=== PATIENT | female | born 1970 | race Caucasian/White ===

== ENCOUNTER 2016-08-04 20:22 | Emergency (ER) ==
[2016-08-04 20:35] VITALS: BP 132/92; TEMP 100.3; BMI 29.2
[2016-08-04] MEDS ORDERED: TORADOL IM STA (20:48)
[2016-08-04] MEDS ORDERED: AUGMENTIN 500-125 MG TAB PO STA (20:48)
--- NOTE | 2016-08-04 20:51 | ED.PDOC ---
General ED Provider: Dr. ALMA SHRESTHA Chief Complaint: Tooth Problem Stated Complaint: Been hurting in the left upper teeth, swollen gums, seen Dr Solorzano Time Seen by Physician: 20:49 Mode of Arrival: Walk-In Information Source: Patient Primary Care Provider: AMY OHARA Nursing and Triage Documentation Reviewed and Agree: Yes EENT Complaint Exam - Dental/Oral Complaint/Exam Mechanism of Injury: No known trauma Symptoms Are: Still present Timing: Constant Initial Severity: Moderate Current Severity: Moderate Character: Reports: Aching, Throbbing Aggravating: Reports: Cold, Chewing, Exertion Alleviating: Reports: Cold Associated Signs and Symptoms: Reports: Swelling. Denies: Discharge, Fever, Foul odor, Foul taste in mouth Related History: Reports: Similar episode Cardiac Risk Factors: Reports: None Dental/Oral Surgical History: Reports: None Tooth Findings: Present: Percussion tenderness, Abcess, Cellulitis Cervical Lymphadenopathy Present: No Facial Swelling Present: No Bleeding Present: No Septal Hematoma: No Foreign Body Present: No Dysphagia Present: No Drooling Present: No Asymmetrical Tonsillar Swelling Present: No Teeth Picture: 1 - fractured teeth, swollen gums Differential Diagnoses: Dental Caries, Gingivitis Review of Systems - Review Of Systems Constitutional: Reports: No symptoms Eyes: Reports: No symptoms Ears, Nose, Mouth, Throat: Reports: Throat pain Respiratory: Reports: No symptoms Cardiac: Reports: No symptoms GI: Reports: No symptoms : Reports: No symptoms Musculoskeletal: Reports: No symptoms Skin: Reports: No symptoms Neurological: Reports: No symptoms Endocrine: Reports: No symptoms Hematologic/Lymphatic: Reports: No symptoms All Other Systems: Reviewed and Negative Past Medical History - Past Medical History Previously Healthy: No Endocrine: Reports: DM 1, Hypothyroid Cardiovascular: Reports: None Respiratory: Reports: None Hematological: Reports: None Gastrointestinal: Reports: None Genitourinary: Reports: None Neuro/Psych: Reports: Migraine, Bipolar Disorder ((see meds)) Musculoskeletal: Reports: None Cancer: Reports: Unknown Last Menstrual Period: N/A Other Pertinent Past Medical History: KNEE,GALLBLADDER,BACK,NECK,HANDS - Surgical History General Surgical History: Reports: Cholecystectomy, Orthopedic (KNEE,BACK,NECK, HANDS) - Family History Family History: Reports: Unknown - Social History Smoking Status: Current every day smoker Hx Substance Use: No Alcohol Screening: None - Immunizations Tetanus Shot up to Date: Yes Physical Exam - Physical Exam Appearance: Ill-appearing, Obese Pain Distress: Moderate Eyes: HU, EOMI, Conjunctiva clear ENT: Ears normal, Nose normal, Oropharynx normal Respiratory: Airway patent, Breath sounds clear, Breath sounds equal, Respirations nonlabored Cardiovascular: RRR, Pulses normal, No rub, No murmur GI/: Soft, Nontender, No masses, Bowel sounds normal, No Organomegaly Musculoskeletal: Normal strength, ROM intact, No edema, No calf tenderness Skin: Warm, Dry, Normal color Neurological: Sensation intact, Motor intact, Reflexes intact, Cranial nerves intact, Alert, Oriented Psychiatric: Affect appropriate, Mood appropriate Critical Care Note - Critical Care Note Total Time (mins): 0 Course - Course Orders, Labs, Meds: Orders Category Date Time Status Amoxicillin/Potassium Clav [Augmentin 500-125 mg Tab] MEDS 08/04/16 20:48 Stat 1 tab PO ONCE STA Ketorolac Tromethamine [Toradol] MEDS 08/04/16 20:48 Stat 60 mg IM ONCE STA Vital Signs: Temp Pulse Resp BP Pulse Ox 08/04/16 20:23 100.3 F H 95 H 20 132/92 H 97 Departure - Departure Time of Disposition: 21:20 Disposition: HOME SELF-CARE Discharge Problem: Toothache Instructions: Gingivitis (ED) Condition: Stable Pt referred to PMD for follow-up: Yes Additional Instructions: Keep f/u with Dr Webb dental hygiene discussed Prescriptions: Amoxicillin/Potassium Clav [Augmentin 500-125 mg Tab] 1 tab PO Q12HR #20 tablet Tramadol HCl 50 mg PO BID #14 tablet Allergies/Adverse Reactions: Allergies codeine Adverse Reaction (Verified 07/29/16 19:42) fluoxetine HCl [From Prozac] Adverse Reaction (Verified 07/29/16 19:42) ibuprofen [From Motrin] Adverse Reaction (Verified 08/04/16 20:29) Nausea prednisone Adverse Reaction (Verified 07/29/16 19:42) Home Medications: Ambulatory Orders Trazodone HCl 300 mg PO BEDTIME 02/01/13 Levothyroxine Sodium [Synthroid] 137 mcg PO BEDTIME 12/04/14 Sertraline HCl [Zoloft] 200 mg PO BEDTIME 12/04/14 Amoxicillin/Potassium Clav [Augmentin 500-125 mg Tab] 1 tab PO Q12HR #20 tablet 08/04/16 Tramadol HCl 50 mg PO BID #14 tablet 08/04/16 Disposition Discussed With: Patient, Family
== END 2016-08-04 21:25 | disposition home or self-care (01) ==
LOC: ED 20:22
DX: K08.89 Other specified disorders of teeth and supporting structures (principal); K05.10 Chronic gingivitis, plaque induced; F17.210 Nicotine dependence, cigarettes, uncomplicated; R11.2 Nausea with vomiting, unspecified; T39.8X5A Adverse effect of other nonopioid analgesics and antipyretics, not elsewhere classified, initial encounter
CPT/HCPCS: 96372; 99282

== ENCOUNTER 2016-08-04 22:25 | Emergency (ER) ==
[2016-08-04 22:25] VITALS: BMI 30.2
[2016-08-04 22:35] VITALS: BP 129/86; TEMP 98.8
[2016-08-04] MEDS ORDERED: ZOFRAN 4 MG/2 ML IM STA (22:47)
[2016-08-04] MEDS ORDERED: BENADRYL IM STA (22:47)
--- NOTE | 2016-08-04 22:50 | ED.PDOC ---
General ED Provider: Dr. ALMA SHRESTHA Chief Complaint: Nausea/Vomiting Stated Complaint: Patient was here before for the dental pain, when giving torodol for that pain she did not remeber that she was allergiac, so she got the shot and went home started feeling nauseous, came for the f/u Time Seen by Physician: 22:48 Mode of Arrival: Walk-In Information Source: Patient Nursing and Triage Documentation Reviewed and Agree: Yes GI Complaint Exam - Vomiting/Diarrhea Complaint/Exam Symptoms Are: Resolved Episodes of Vomiting over last 24 Hours: 2 Initial Severity: Moderate Current Severity: None Character of Vomiting: Reports: Non-bilious Aggravating: Reports: None Alleviating: Reports: None Associated Signs and Symptoms: Denies: Dizziness, Light-headedness, Melena, Hematemesis, Fever, Abdominal pain, Cramping Non-GI Risk Factors: Reports: None Surgical Obstruction Risk Factors: Reports: None Related Surgical History: Reports: None Abdominal Findings: Present: None Differential Diagnoses: Other (alergic reaction) Review of Systems - Review Of Systems Constitutional: Reports: No symptoms Eyes: Reports: No symptoms Ears, Nose, Mouth, Throat: Reports: No symptoms Respiratory: Reports: No symptoms Cardiac: Reports: No symptoms GI: Reports: Nausea, Vomiting : Reports: No symptoms Musculoskeletal: Reports: No symptoms Skin: Reports: No symptoms Neurological: Reports: No symptoms Endocrine: Reports: No symptoms Hematologic/Lymphatic: Reports: No symptoms All Other Systems: Reviewed and Negative Past Medical History - Past Medical History Previously Healthy: No Endocrine: Reports: DM 1, Hypothyroid Cardiovascular: Reports: None Respiratory: Reports: None Hematological: Reports: None Gastrointestinal: Reports: None Genitourinary: Reports: None Neuro/Psych: Reports: Migraine, Bipolar Disorder ((see meds)) Musculoskeletal: Reports: None Cancer: Reports: Unknown Last Menstrual Period: HYSTERECTOMY Other Pertinent Past Medical History: KNEE,GALLBLADDER,BACK,NECK,HANDS - Surgical History General Surgical History: Reports: Cholecystectomy, Orthopedic (KNEE,BACK,NECK, HANDS) - Family History Family History: Reports: Unknown - Social History Smoking Status: Former smoker Hx Substance Use: No Alcohol Screening: None Physical Exam - Physical Exam Appearance: Well-appearing, No pain distress, Well-nourished Eyes: HU, EOMI, Conjunctiva clear ENT: Ears normal, Nose normal, Oropharynx normal Respiratory: Airway patent, Breath sounds clear, Breath sounds equal, Respirations nonlabored Cardiovascular: RRR, Pulses normal, No rub, No murmur GI/: Soft, Nontender, No masses, Bowel sounds normal, No Organomegaly Musculoskeletal: Normal strength, ROM intact, No edema, No calf tenderness Skin: Warm, Dry, Normal color Neurological: Sensation intact, Motor intact, Reflexes intact, Cranial nerves intact, Alert, Oriented Psychiatric: Affect appropriate, Mood appropriate Critical Care Note - Critical Care Note Total Time (mins): 0 Course - Course Orders, Labs, Meds: Orders Category Date Time Status Diphenhydramine Inj [Benadryl] MEDS 08/04/16 22:47 Stat 25 mg IM ONCE STA Ondansetron HCl/Pf [Zofran 4 mg/2 ml] MEDS 08/04/16 22:47 Stat 4 mg IM ONCE STA Vital Signs: Temp Pulse Resp BP Pulse Ox 08/04/16 22:25 98.8 F 85 20 129/86 97 Departure - Departure Time of Disposition: 22:53 Disposition: HOME SELF-CARE Discharge Problem: Allergic reaction caused by a drug Qualifiers: Encounter type: initial encounter Qualifier Code: (T78.40XA) Allergy, unspecified, initial encounter Instructions: General Allergic Reaction (ED) Condition: Stable Pt referred to PMD for follow-up: Yes Additional Instructions: ALLERGIC TO TORODOL IS UPDATED. Increase hydration Zofran 4 mg po tid x 10 Benadryl 25 po tid Needs f/u with Pmd if not better Prescriptions: Diphenhydramine HCl [Benadryl] 25 mg PO Q6H #14 capsule Ondansetron HCl [Zofran] 4 mg PO TID #14 tablet Allergies/Adverse Reactions: Allergies ketorolac [From Toradol] Adverse Reaction (Mild, Verified 08/04/16 22:38) Vomiting codeine Adverse Reaction (Verified 08/04/16 22:38) fluoxetine HCl [From Prozac] Adverse Reaction (Verified 08/04/16 22:38) ibuprofen [From Motrin] Adverse Reaction (Verified 08/04/16 22:38) Nausea prednisone Adverse Reaction (Verified 08/04/16 22:38) Home Medications: Ambulatory Orders Trazodone HCl 300 mg PO BEDTIME 02/01/13 Levothyroxine Sodium [Synthroid] 137 mcg PO BEDTIME 12/04/14 Sertraline HCl [Zoloft] 200 mg PO BEDTIME 12/04/14 Amoxicillin/Potassium Clav [Augmentin 500-125 mg Tab] 1 tab PO Q12HR #20 tablet 08/04/16 Diphenhydramine HCl [Benadryl] 25 mg PO Q6H #14 capsule 08/04/16 Ondansetron HCl [Zofran] 4 mg PO TID #14 tablet 08/04/16 Tramadol HCl 50 mg PO BID #14 tablet 08/04/16 Disposition Discussed With: Patient, Family
== END 2016-08-04 23:15 | disposition home or self-care (01) ==
LOC: ED 22:25
DX: R11.2 Nausea with vomiting, unspecified (principal); T39.8X5A Adverse effect of other nonopioid analgesics and antipyretics, not elsewhere classified, initial encounter

== ENCOUNTER 2016-11-05 11:08 | Outpatient (CLI) ==
[2013-02-01 21:24] VITALS: TEMP 96.6
[2016-11-05 11:39] LABS: BASOPHILS # (AUTO) 0.1 K/uL (0-0.2); BASOPHILS % (AUTO) 0.8 % (0.0-3.0); EOSINOPHILS # (AUTO) 0.4 K/ul (0.0-0.7); EOSINOPHILS % (AUTO) 4.7 % (0.0-7.0); HEMATOCRIT 35.8 % (37.0-47.0); HEMOGLOBIN 12.4 g/dl (12.0-16.0); IMMATURE GRANULOCYTE % (AUTO) 0.6 % (0.0-5.0); LYMPHOCYTES # (AUTO) 3.5 K/uL (0.60-3.4); LYMPHOCYTES % (AUTO) 38.9 (10.0-50.0); MEAN CORPUSCULAR HGB CONC 34.6 (31.8-35.4); MEAN CORPUSCULAR VOLUME 80.8 fl (81.0-99.0); MONOCYTES # (AUTO) 0.4 K/uL (0.4-2.0); MONOCYTES % (AUTO) 4.2 (0-10); NEUTROPHILS # (AUTO) 4.5 K/ul (2.0-6.9); NEUTROPHILS % (AUTO) 50.8; PLATELET COUNT 244 10^3/uL (140-440); RED BLOOD COUNT 4.43 10^6/ul (4.20-5.40); WHITE BLOOD COUNT 8.87 K/ul (4.6-10.2)
[2016-11-05 12:04] LABS: ALBUMIN 3.4 g/dL (3.4-5.0); ALBUMIN/GLOBULIN RATIO 0.74; BILIRUBIN,TOTAL 0.23 mg/dL (0.00-1.20); BUN/CREATININE RATIO 14.81; CHOL/HDL RATIO 6.8 (4.5-5.5); CREATININE 0.81 mg/dL (0.60-1.30)
== END 2016-11-05 11:09 | disposition home or self-care (01) ==
LOC: LAB 11:08
PROVIDERS: ATTEND Physician Assistant
DX: E03.9 Hypothyroidism, unspecified (principal); E11.9 Type 2 diabetes mellitus without complications; F51.01 Primary insomnia
CPT/HCPCS: 36415; 80053; 80061; 82043; 83036; 85025

== ENCOUNTER 2016-11-23 15:06 | Outpatient (CLI) ==
[2013-02-01 21:24] VITALS: TEMP 96.6
== END 2016-11-23 15:07 ==
LOC: AMBL 15:06
PROVIDERS: ATTEND Internal Medicine
DX: R53.1 Weakness (principal); R11.2 Nausea with vomiting, unspecified; R51 Headache; R42 Dizziness and giddiness; Z86.73 Personal history of transient ischemic attack (TIA), and cerebral infarction without residual deficits

== ENCOUNTER 2017-02-17 09:08 | Outpatient (CLI) ==
[2013-02-01 21:24] VITALS: TEMP 96.6
[2017-02-17 09:59] LABS: BASOPHILS # (AUTO) 0.1 K/uL (0-0.2); BASOPHILS % (AUTO) 0.7 % (0.0-3.0); EOSINOPHILS # (AUTO) 0.4 K/ul (0.0-0.7); EOSINOPHILS % (AUTO) 4.1 % (0.0-7.0); HEMATOCRIT 40.2 % (37.0-47.0); HEMOGLOBIN 13.9 g/dl (12.0-16.0); IMMATURE GRANULOCYTE % (AUTO) 0.4 % (0.0-5.0); LYMPHOCYTES # (AUTO) 3.4 K/uL (0.60-3.4); LYMPHOCYTES % (AUTO) 32.1 (10.0-50.0); MEAN CORPUSCULAR HGB CONC 34.6 (31.8-35.4); MONOCYTES # (AUTO) 0.5 K/uL (0.4-2.0); MONOCYTES % (AUTO) 4.7 (0-10); NEUTROPHILS # (AUTO) 6.1 K/ul (2.0-6.9); PLATELET COUNT 253 10^3/uL (140-440); RED BLOOD COUNT 4.96 10^6/ul (4.20-5.40); WHITE BLOOD COUNT 10.47 K/ul (4.6-10.2)
[2017-02-17 10:36] LABS: ALBUMIN 3.7 g/dL (3.4-5.0); ALBUMIN/GLOBULIN RATIO 0.76; ANION GAP 16.3; BILIRUBIN,TOTAL 0.39 mg/dL (0.00-1.20); BUN/CREATININE RATIO 13.86; CALCIUM 9.2 mg/dL (8.2-10.2); CHOL/HDL RATIO 6.6 (4.5-5.5); CREATININE 1.01 mg/dL (0.60-1.30); POTASSIUM 4.3 mmol/L (3.5-5.10); TOTAL PROTEIN 8.6 g/dL (6.4-8.2)
== END 2017-02-17 09:09 | disposition home or self-care (01) ==
LOC: LAB 09:08
PROVIDERS: ATTEND Physician Assistant
DX: E03.9 Hypothyroidism, unspecified (principal); E11.9 Type 2 diabetes mellitus without complications; I10 Essential (primary) hypertension
CPT/HCPCS: 36415; 80053; 80061; 83036; 84443; 85025

== ENCOUNTER 2017-02-18 08:57 | Outpatient (CLI) ==
[2013-02-01 21:24] VITALS: TEMP 96.6
== END 2017-02-18 08:58 ==
LOC: AMBL 08:57
PROVIDERS: ATTEND Internal Medicine
DX: R53.1 Weakness (principal); R47.81 Slurred speech; E11.9 Type 2 diabetes mellitus without complications; I10 Essential (primary) hypertension; Z86.73 Personal history of transient ischemic attack (TIA), and cerebral infarction without residual deficits; R13.10 Dysphagia, unspecified; R26.89 Other abnormalities of gait and mobility; R10.9 Unspecified abdominal pain

== ENCOUNTER 2017-04-22 06:55 | Outpatient (CLI) ==
[2013-02-01 21:24] VITALS: TEMP 96.6
[2017-04-22 18:45] VITALS: BMI 30.3
== END 2017-04-22 06:56 | disposition critical access hospital (66) ==
LOC: AMBL 06:55
PROVIDERS: ATTEND Internal Medicine Geriatric Medicine
DX: R40.20 Unspecified coma (principal)

== ENCOUNTER 2017-04-22 07:01 | Inpatient (IN) ==
--- NOTE | 2017-04-22 07:34 | ED.PDOC ---
General ED Provider: Dr. DALILA JAMES Chief Complaint: Overdose Stated Complaint: Found by family member unresponsive on floor. Opens eyes but doesn't respond to questions or commands. Empty bottle of Tylenol found, with pills spilled around her. Last time seen was evening before (10-12 hours before) . No note written. No suicidal speech reported. Time Seen by Physician: 07:49 Mode of Arrival: Ambulance Information Source: EMT Exam Limitations: No limitations, Altered mental status (Patient appears alert. Doesn't answer most questions (but nodded yes when I pressed on her abdomen and she jumped) and doesn't follow commands (but when I tried to sit her up she grabbed hand rails and asisted herself up).) Primary Care Provider: AMY SCHNEIDER Nursing and Triage Documentation Reviewed and Agree: Yes Psychological Complaint Exam - Overdose/Toxic Exposure Complaint/Exam Ingestion Occurred: in last 12 hours Witnessed: No Ingestion: Medication (Tylenol ) Character: Reports: Oral Aggravating: Reports: None Treatment Prior To Arrival: None Associated Signs And Symptoms: Reports: Intentional ingestion Completed Suicide Risk Factors: Gag Reflex Present: Yes Inability To Swallow Present: No Drooling Present: No Miosis Present: No Mydriasis Present: No Nystagmus Present: No Gait: Present: Unable Patient Uncooperative For Exam: No Mood: Present: Depressed (flat affect, doesn't respond to questions, doesn't speak) Appearance: Present: Clean Differential Diagnoses: Acute Psychosis, Anxiety, Aspirin Overdose, Tylenol Overdose, Depression, Suicide Attempt, Suicide Gesture Quality Indicator For Non-Traumatic Chest Pain/Syncope: EKG Performed Review of Systems - Review Of Systems Constitutional: Reports: No symptoms (Patient doesn't speak, doesn't respond to most questions) All Other Systems: Other (Patient doesn't speak, doesn't respond to most questions) Past Medical History - Past Medical History Previously Healthy: No Endocrine: Reports: DM 2 (insulin-requiring tpe DM), Hypothyroid Cardiovascular: Reports: None Respiratory: Reports: None Hematological: Reports: None Gastrointestinal: Reports: None Genitourinary: Reports: None Neuro/Psych: Reports: CVA (later in visit, patient stated via written note that she has had 3 CVAs), Migraine, Depression, Bipolar Disorder ((see meds)) Musculoskeletal: Reports: None Cancer: Reports: Unknown Last Menstrual Period: hysterectomy Other Pertinent Past Medical History: KNEE,GALLBLADDER,BACK,NECK,HANDS - Surgical History General Surgical History: Reports: Cholecystectomy, Orthopedic (KNEE,BACK,NECK, HANDS) - Family History Family History: Reports: Unknown - Social History Smoking Status: Former smoker Hx Substance Use: No Alcohol Screening: None Lives: With family - Immunizations Tetanus Shot up to Date: Yes Physical Exam - Physical Exam Appearance: Well-appearing, No pain distress, Well-nourished, Obese Ill-appearing: None Pain Distress: None Eyes: HU (Won't track my finger but follows me with her eyes), EOMI, Conjunctiva clear ENT: Ears normal, Nose normal, Oropharynx normal Neck: Supple Respiratory: Airway patent, Breath sounds clear, Breath sounds equal, Respirations nonlabored Cardiovascular: RRR, Pulses normal, No rub, No murmur GI/: Soft, No masses, Bowel sounds normal, No Organomegaly, Tender (mild generalized tenderness on initial exam but no apparent tenderness on repeat exam ) Musculoskeletal: ROM intact, No edema, No calf tenderness, Limited strength ( difficulty walking. patient states (via written notes) that she is weaker than usual) Skin: Warm, Dry, Normal color Neurological: Sensation intact, Motor intact, Reflexes intact, Cranial nerves intact (limited to those I can test without her cooperation. No gross deficits.) , Alert (alert but doesn't speak or indicate she understands, except when I pushed on her abdomen, she flinched and when I asked it it hurt, she nodded.), Alert to verbal, Alert to pain Psychiatric: Depressed (affect appears flat) Interpretation - Radiology Interpretation Radiology Interpretation By: Radiologist Radiology Results: Negative Exam Interpreted: CT Scan Xray Comments: head: unremarkable - EKG Interpretation Time of EKG #1: 07:37 Rate: Normal Rhythm: Sinus Ectopy: None [place]: [place] ST Segment: Normal Interpretation: nonspecific T wave abnormality Re-Evaluation - Re-Evaluation Time of Re-Evaluation: 09:25 Status: Improved Vital Signs Stable: Yes Pain Level: 0 Appearance: NAD Lungs: Clear Skin: Warm and Dry Neuro: Other (Patient gives no useful information beyond not homocidal/suicidal & denies taking any pills. Asking for transfer to [facility] where her primary doctor admits. She does appear to be oriented x3. Does say "yes" and "no" occasionally and appropriately.) CV: RRR Additional Comments: Since arrival of [id number], patient is now willing/ able to write notes Physician Notification - Case Discussed Physician Notified: Dr. Schneider Time of Notification: 10:04 ( states patient is has not any benzodiazepenes rx'd by him.) Physician Notified: Dr. Velazco (hospitalist at [facility]) Time of Notification: 10:32 (Strongly suspects conversion reaction and [facility] has no psych. recommends transfer to [facility]) Endorsed To/Discussed With: [facility] contacted, advised patient should go to state facility Time of Discussion: 14:10 Admit/Transition Orders Entered by ED Provider: Yes Reviewed With: Dr. Lang who agreed to admit patient Admit To: Inpatient Critical Care Note - Critical Care Note Total Time (mins): 0 Course - Course Hematology/Chemistry: 04/22/17 07:50 04/22/17 07:50 Orders, Labs, Meds: Lab Review 04/22/17 04/22/17 04/22/17 07:50 07:50 08:10 WBC 7.86 RBC 4.32 Hgb 12.3 Hct 35.4 L MCV 81.9 MCH 28.5 MCHC 34.7 RDW Coeff of Luanne 13.2 Plt Count 196 Immature Gran % (Auto) 0.4 Neut % (Auto) 56.1 Lymph % (Auto) 34.7 [place] % (Auto) 4.8 Eos % (Auto) 3.2 Baso % (Auto) 0.8 Immature Gran # (Auto) 0.0 Neut # 4.4 Lymph # 2.7 [place]ardo # 0.4 Eos # 0.3 Baso # 0.1 Sodium 137 Potassium 3.3 L Chloride 102 Carbon Dioxide 25 Anion Gap 13.3 BUN 9 Creatinine 0.85 Estimated GFR (MDRD) 71.00 BUN/Creatinine Ratio 10.58 Glucose 242 H Calcium 8.9 Total Bilirubin 0.24 AST 9 L ALT 11 L Alkaline Phosphatase 59 Total Protein 7.6 Albumin 3.4 Globulin 4.2 Albumin/Globulin Ratio 0.81 Urine Color Urine Clarity Urine pH Ur Specific [place] Urine Protein Urine Glucose (UA) Urine Ketones Urine Blood Urine Nitrite Urine Bilirubin Urine Urobilinogen Ur Leukocyte Esterase Urine Microscopic RBC Urine Microscopic WBC Ur Squamous Epith Cells Ur Renal Epithelial Cell Amorphous Sediment Urine Bacteria Urine Mucus Salicylate Level mg/dL < 5.0 Urine Opiates Screen Negative Ur Oxycodone Screen Negative Urine Methadone Screen Negative Ur Propoxyphene Screen Negative Acetaminophen < 3 L Ur Barbiturates Screen Negative U Tricyclic Antidepress Negative Ur Phencyclidine Scrn Negative Ur Amphetamine Screen Negative U Methamphetamines Scrn Negative U Benzodiazepines Scrn Positive Urine Cocaine Screen Negative U Cannabinoids Screen Negative Plasma/Serum Alcohol < 10.0 04/22/17 08:10 WBC RBC Hgb Hct MCV MCH MCHC RDW Coeff of Luanne Plt Count Immature Gran % (Auto) Neut % (Auto) Lymph % (Auto) [place] % (Auto) Eos % (Auto) Baso % (Auto) Immature Gran # (Auto) Neut # Lymph # [place] # Eos # Baso # Sodium Potassium Chloride Carbon Dioxide Anion Gap BUN Creatinine Estimated GFR (MDRD) BUN/Creatinine Ratio Glucose Calcium Total Bilirubin AST ALT Alkaline Phosphatase Total Protein Albumin Globulin Albumin/Globulin Ratio Urine Color Yellow Urine Clarity Clear Urine pH 6.5 Ur Specific [place] 1.025 Urine Protein 1+ Urine Glucose (UA) Trace Urine Ketones Negative Urine Blood Negative Urine Nitrite Negative Urine Bilirubin Negative Urine Urobilinogen 0.2 Ur Leukocyte Esterase Negative Urine Microscopic RBC 0-2 Urine Microscopic WBC 0-2 Ur Squamous Epith Cells 0-2 Ur Renal Epithelial Cell 0-2 Amorphous Sediment Trace Urine Bacteria Trace Urine Mucus 1+ Salicylate Level mg/dL Urine Opiates Screen Ur Oxycodone Screen Urine Methadone Screen Ur Propoxyphene Screen Acetaminophen Ur Barbiturates Screen U Tricyclic Antidepress Ur Phencyclidine Scrn Ur Amphetamine Screen U Methamphetamines Scrn U Benzodiazepines Scrn Urine Cocaine Screen U Cannabinoids Screen Plasma/Serum Alcohol Orders Category Date Time Status EKG-(ED ONLY) Stat CARDIO 04/22/17 07:33 Completed Mental Health Consult [ED MENTAL HEALTH CONSULT] .ONCE EMERGENCY 04/22/17 14: 26 Active ACETAMINOPHEN Stat LAB 04/22/17 07:50 Completed BLOOD ALCOHOL Stat LAB 04/22/17 07:50 Completed CBC W/ AUTO DIFF Stat LAB 04/22/17 07:50 Completed COMPREHENSIVE METABOLIC PANEL Stat LAB 04/22/17 07:50 Completed DRUG SCREEN, URINE, RAPID Stat LAB 04/22/17 08:10 Completed SALICYLATE Stat LAB 04/22/17 07:50 Completed URINALYSIS C & S IF INDICATED Stat LAB 04/22/17 08:[address] HEAD W/O CONTRAST Stat RADS 04/22/17 09:07 Completed Vital Signs: Temp Pulse Resp BP Pulse Ox 04/22/17 07:02 96.9 F L 68 16 126/88 99 Departure - Departure Time of Disposition: 17:29 Disposition: ADMITTED INPATIENT Discharge Problem: Dysphasia Condition: Stable Pt referred to PMD for follow-up: Yes (after discharge from hospital) Allergies/Adverse Reactions: Allergies ketorolac [From Toradol] Adverse Reaction (Mild, Verified 04/22/17 07:15) Vomiting codeine Adverse Reaction (Verified 04/22/17 07:15) fluoxetine HCl [From Prozac] Adverse Reaction (Verified 04/22/17 07:15) ibuprofen [From Motrin] Adverse Reaction (Verified 04/22/17 07:15) Nausea prednisone Adverse Reaction (Verified 04/22/17 07:15) Home Medications: Ambulatory Orders Trazodone HCl 300 mg PO BEDTIME 02/01/13 Levothyroxine Sodium [Synthroid] 137 mcg PO BEDTIME 12/04/14 Sertraline HCl [Zoloft] 200 mg PO BEDTIME 12/04/14 Diphenhydramine HCl [Benadryl] 25 mg PO Q6H #14 capsule 08/04/16 Disposition Discussed With: Patient
[2017-04-22 07:55] LABS: BASOPHILS # (AUTO) 0.1 K/uL (0-0.2); BASOPHILS % (AUTO) 0.8 % (0.0-3.0); EOSINOPHILS # (AUTO) 0.3 K/ul (0.0-0.7); EOSINOPHILS % (AUTO) 3.2 % (0.0-7.0); HEMATOCRIT 35.4 % (37.0-47.0); HEMOGLOBIN 12.3 g/dl (12.0-16.0); IMMATURE GRANULOCYTE % (AUTO) 0.4 % (0.0-5.0); LYMPHOCYTES # (AUTO) 2.7 K/uL (0.60-3.4); LYMPHOCYTES % (AUTO) 34.7 (10.0-50.0); MEAN CORPUSCULAR HEMOGLOBIN 28.5 pg (27.0-31.0); MEAN CORPUSCULAR HGB CONC 34.7 (31.8-35.4); MEAN CORPUSCULAR VOLUME 81.9 fl (81.0-99.0); MONOCYTES # (AUTO) 0.4 K/uL (0.4-2.0); MONOCYTES % (AUTO) 4.8 (0-10); NEUTROPHILS # (AUTO) 4.4 K/ul (2.0-6.9); NEUTROPHILS % (AUTO) 56.1; PLATELET COUNT 196 10^3/uL (140-440); RED BLOOD COUNT 4.32 10^6/ul (4.20-5.40); WHITE BLOOD COUNT 7.86 K/ul (4.6-10.2)
[2017-04-22 08:16] LABS: ACETAMINOPHEN < 3 ug/ml (10-30); ALANINE AMINOTRANSFERASE 11 U/L (12-78); ALBUMIN 3.4 g/dL (3.4-5.0); ALBUMIN/GLOBULIN RATIO 0.81; ALKALINE PHOSPHATASE 59 U/L (42-98); ANION GAP 13.3; ASPARTATE AMINO TRANSFERASE 9 U/L (15-37); BILIRUBIN,TOTAL 0.24 mg/dL (0.00-1.20); BLOOD UREA NITROGEN 9 mg/dL (7-18); BUN/CREATININE RATIO 10.58; CALCIUM 8.9 mg/dL (8.2-10.2); CARBON DIOXIDE 25 mmol/L (21-32); CHLORIDE 102 mmol/L (98-107); CREATININE 0.85 mg/dL (0.60-1.30); GLUCOSE 242 mg/dL (70-110); POTASSIUM 3.3 mmol/L (3.5-5.10); SALICYLATE < 5.0 mg/dL (2.8-20.0); SODIUM 137 mmol/L (136-145); TOTAL PROTEIN 7.6 g/dL (6.4-8.2)
[2017-04-22 08:58] LABS: BILIRUBIN,URINE Negative (NEGATIVE); KETONES,URINE Negative (NEGATIVE); LEUKOCYTE ESTERASE ,URINE Negative (NEGATIVE); NITRITE,URINE Negative (NEGATIVE); PH,URINE 6.5 (5-9); PROTEIN,URINE 1+ (NEGATIVE); URINE, BLOOD Negative (NEGATIVE)
[2017-04-22 09:04] LABS: ADD URINE MICROSCOPIC YES; COCAIN SCREEN,URINE NEGATIVE (NEGATIVE)
[2017-04-22 09:07] LABS: BACTERIA,URINE TRACE (NOT PRESENT)
--- NOTE | 2017-04-22 09:46 | CT ---
EXAM: CT of the head without contrast History: Altered mental status. Comparison: Head CT 07/27/2016 Technique: Multiplanar CT images through the head were obtained without the administration of IV con trast Findings: The visualized paranasal sinuses and mastoid air cells are clear in general. No acute manuel varial abnormalities. Intracranially the ventricular and cisternal spaces are normal in size, shape and configuration for a patient of this age. No dominant mass or midline shift. No hydrocephalous. No acute intracranial hemorrhage or abnormal extraaxial fluid collections. Impression: No acute intracranial process. No change compared to the prior study.
[2017-04-22 18:45] VITALS: BMI 30.3
[2017-04-22] MEDS: DEXTROSE 5%-NS IV SOLUTION 1,000 ML IV SCH (20:49)
[2017-04-22] MEDS: TYLENOL PO PRN (21:54)
[2017-04-23] MEDS: TYLENOL PO PRN ×3 (08:28→23:26)
--- NOTE | 2017-04-23 11:45 | RS.PTINEVL ---
Subjective - Patient information Date of Evaluation: 04/23/17 Date of Arrival on Unit: 04/22/17 Admitted From:: Home Usual Living Arrangement: With Others Living Arrangement Comments: Tamara and mother in law Home Environment: House, Stairs (few), No rail Medical History: Diabetes Medical History Comments:: depression LATEX ALLERGY?: No Surgical History: Cholecystectomy, Hysterectomy Surgical History Comments:: knee surgery, pt reports has had back surgery and is on disability from her back problems. Subjective Information/ Patient Comments:: pt admitted with possible overdose of tylenol. pt found unresponsive at her home. pt has been aphasic since incident and admit to hospital. pt has said 1-2 words total since admit. pt writes answers to questions. - Level of function Prior to this admission, the patient could do the following:: Independent Selfcare, Independent ADL's, Independent Ambulation Current Equipment Used at Home: Glucometer Pain Assessement - Location Head Description: Aching Intensity: 8 Pain Behavior: Facial Grimacing Pain Aggravating Factors: Exercise/Activity, Standing, Walking Pain Alleviating Factors: Medication Lower Back Description: Radiating, Aching Intensity: 10 Radiation Location: RLE Pain Behavior: Facial Grimacing Pain Aggravating Factors: Standing, Walking Pain Alleviating Factors: Medication Effects of Pain: limits amb Interventions - Objective Patient Orientation: Person, Place, Time, Situation Current Interventions: IV's, Telemetry (pt has had multiple iv sites, currently IV in R wrist) Range of Motion - ROM Right Upper Extremity AROM: WFL's Left Upper Extremity AROM: WFL's Right Lower Extremity AROM: WFL's Left Lower Extremity AROM: WFL's Muscle Strength - Muscle Strength Right Upper Extremity Strength: Mild Weakness Left Upper Extremity Strength: Mild Weakness Right Lower Extremity Strength: Mild Weakness Left Lower Extremity Strength: Mild Weakness (BUE 4/5, BLE hip flex 4/5, knee flex/ext 4+/5, ankle DF/PF 4+/5) Sensation - Sensation Right Upper Extremity Sensation: Intact/Normal Left Upper Extremity Sensation: Intact/Normal Right Lower Extremity Sensation: Impaired Left Lower Extremity Sensation: Impaired (Reports n/t B feet, new since event yesterday) Palpation Palpation Findings: Tenderness (lumbar spine/ paraspinals) Balance - Sitting Balance and Reactions Static Sitting Balance: Normal Dynamic Sitting Balance: Normal Sitting Equilibrium Reactions: Delayed Left, Delayed Right Sitting Protective Reactions: Delayed Left, Delayed Right - Standing Balance and Reactions Static Standing Balance: Good Dynamic Standing Balance: Fair Standing Equilibrium Reactions: Delayed Left, Delayed Right Standing Protective Reactions: Delayed Left, Delayed Right - Comments Balance Assessment Comments: TUG score 28 secs. Tinetti score 1828 Functional Mobility - Bed Mobility Rolling R/L: Independent Scooting: Independent Supine to Sit: Independent - Transfers Sit to Stand: CGA Stand to Sit: CGA - Safety Awareness Safety Awareness: Fair Ambulation - Ambulation Assistive Device Used: No Assistive Device Orthotic/Prosthetic Device: No Distance: 100ft Assistance needed with Ambulation: CGA Quality of Ambulation: . Ambulation Comments: after amb approx 50ft pt began having episodes of L knee buckling during stance. pt states it was due to pain in her bone (pointing to tibia). 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 Feel pt may benefit from use of rwx to increase safety with gait due to knee buckling during gait. pt is agreeable to try rwx. Treatment time - Time with patient Total treatment time: 30 Patient Education - Education Patient Education: Home Safety, Activity Modification, Education of Plan of Care Teaching Recipient: Patient Teaching Methods: Discussion, Demonstration Assessment - Assessment Problem List:: Decreased level of function, Requires training/education, Decreased safety/Risk of falls, Weakness, Pain limits previous level of function Rehab Potential: Good Further Therapy Indicated?: Yes Short Term Goals GOAL #1: pt transfer sup to/from sit to/from stand independently. 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 Goal to be met by: 04/28/17 Plan Plan of Care: Therapeutic EX, Therapeutic Activity, Self-Care/Home Management Other:: Gait training Frequency of Treatment: 1-2 X day, as tolerated Duration of Treatment: 5 days Anticipated Discharge Destination: Home
[2017-04-23] MEDS: K-DUR PO SCH (18:07)
--- NOTE | 2017-04-23 21:36 | MRI ---
EXAM: Brain MRI with and without contrast. HISTORY: Dysphagia, headaches and fall at home. COMPARISON: Head CT 04/22/[address] 07/27/2016. TECHNIQUE: Multiplanar, multisequence MR images were acquired of the brain before and after administ ration of intravenous contrast. FINDINGS: The midline structures are central and the craniocervical junction is unremarkable. The v entricles and sulci are normal in size and configuration. The brain parenchyma has no diffusion restriction to suggest acute hypoperfusion or infarction. Ther e is a thin band of periventricular FLAIR hyperintensity that is considered physiologic. There are a few scattered T2 / FLAIR hyperintensities in the supratentorial white matter consistent with minor l eukomalacia. There is no abnormal dark gradient echo signal to suggest hemosiderin. After administr ation of gadolinium, no enhancing lesions are identified. The sella is expanded and the pituitary gl and is small and flattened inferiorly consistent with a mostly empty sella. There are no intraorbital masses. Hyperostosis frontalis interna is present. Paranasal sinuses, mid dle ears mastoids are clear. There is fatty infiltration of the parotid glands bilaterally. There i s mild adenoidal hypertrophy which is considered within normal variation. The vertebral basilar syst em is developmentally mildly hypoplastic. Flow voids are present in the major arteries of the [place]. Prominent ventral spondylosis is present at C3-4 and there is mild spinal stenosis. AP diameter of t he thecal sac is 9 mm. IMPRESSION: 1. No intracranial mass, hemorrhage or acute cerebral infarct. 2. Minor leukomalacia. Clinical considerations include sequela of migraines and chronic ischemic sm all vessel disease. 3. Mostly empty sella.
[2017-04-23] MEDS: DEXTROSE 5%-NS IV SOLUTION 1,000 ML IV SCH (22:13)
[2017-04-24 06:54] LABS: BASOPHILS # (AUTO) 0.1 K/uL (0-0.2); BASOPHILS % (AUTO) 0.8 % (0.0-3.0); EOSINOPHILS # (AUTO) 0.3 K/ul (0.0-0.7); EOSINOPHILS % (AUTO) 3.1 % (0.0-7.0); HEMOGLOBIN 12.5 g/dl (12.0-16.0); IMMATURE GRANULOCYTE % (AUTO) 0.3 % (0.0-5.0); LYMPHOCYTES # (AUTO) 3.8 K/uL (0.60-3.4); MEAN CORPUSCULAR HEMOGLOBIN 28.3 pg (27.0-31.0); MEAN CORPUSCULAR HGB CONC 34.7 (31.8-35.4); MEAN CORPUSCULAR VOLUME 81.4 fl (81.0-99.0); MONOCYTES # (AUTO) 0.5 K/uL (0.4-2.0); NEUTROPHILS # (AUTO) 4.6 K/ul (2.0-6.9); NEUTROPHILS % (AUTO) 49.8; PLATELET COUNT 197 10^3/uL (140-440); RED BLOOD COUNT 4.42 10^6/ul (4.20-5.40); WHITE BLOOD COUNT 9.26 K/ul (4.6-10.2)
[2017-04-24 07:14] LABS: ALBUMIN 3.5 g/dL (3.4-5.0); ALBUMIN/GLOBULIN RATIO 0.81; ANION GAP 13.2; BILIRUBIN,TOTAL 0.51 mg/dL (0.00-1.20); BUN/CREATININE RATIO 12.04; CALCIUM 9.2 mg/dL (8.2-10.2); CREATININE 0.83 mg/dL (0.60-1.30); POTASSIUM 4.2 mmol/L (3.5-5.10); TOTAL PROTEIN 7.8 g/dL (6.4-8.2)
[2017-04-24] MEDS: K-DUR PO SCH ×2 (08:21→18:41)
[2017-04-24] MEDS: TYLENOL PO PRN ×2 (08:21→20:47)
--- NOTE | 2017-04-24 13:11 | RS.SLPCNOT ---
Speech Case Note Date of Note: 04/24/17 Note: The patient was admitted to this facility after being found unresponsive on the floor at home with an empty Tylenol bottle and pills surrounding her. The patient has demonstrated minimal verbalizations since admission according to nursing. The patient demonstrates effective communication using pen and paper. She is able to write complete sentences with no semantic or grammatic defiicts. The patient is to be seen by Dr. Gray later today. Full evaluation will be performed if abnormalities are observed and recommended by the physician. No further speech services are recommended at this time as the patient is able to communicate needs and wants.
--- NOTE | 2017-04-24 14:06 | PN ---
DATE OF SERVICE: 04/23/17 SUBJECTIVE: The patient was admitted yesterday with aphasia and questionable ingestion of the Tylenol but seems like patient did not take any Tylenol. The patient just has some benzodiazepines. The patient did have these kind of episodes in the past where she can talk. Right now she is still not able to talk, everything was communicated through writing on the paper but can hear. The patient's fiance is in the room. REVIEW OF SYSTEMS: CONSTITUTIONAL: No fever, no chills. HEENT: Normal. ENDOCRINE: No weight gain, no weight loss. CVS: No angina symptoms. No CHF symptoms. No palpitations. No atypical chest pain for CAD. No shortness of breath. No PND, no orthopnea. RESPIRATORY: No cough, no hemoptysis. GI: No nausea, no vomiting. No abdominal pain. : No hematuria. No polyuria. MUSCULOSKELETAL:. No joint swelling. PSYCHIATRIC: Not anxious. No depression. No suicidal thoughts. No homicidal thoughts. SKIN: Intact. No rash. PHYSICAL EXAMINATION: V/S: Blood pressure 129/89, respiratory rate 14, heart rate 74, temperature 98 with saturation 98. HEENT: Normocephalic, atraumatic. Mucosa dry. NECK: Supple. No JVD, no carotid bruit. No lymphadenopathy. LUNGS: Decreased and clear to auscultation. No rales or rhonchi. HEART: S1, S2 normal. No S3. No murmur, gallop or regurgitation. ABDOMEN: Soft, nontender. Bowel sounds active. No rigidity. No rebound or guarding. No CVA tenderness. EXTREMITIES: No clubbing, cyanosis or pedal edema. MUSCULOSKELETAL: No joint swelling. NEUROLOGIC: Awake, alert, not able to open the mouth been able to protrude the tongue out but she can not talk. No focal deficit. LYMPHATIC: No lymph nodes palpable. SKIN: Intact. LABS: WBC 7.86, hct 12.3, hct 35.4, plt count 196, Sodium 137, potassium 3.3, chloride 102, bibcarb 25, BUN 9, creatinine 0.85, glucose 242. ASSESSMENT: 1. Aphasia under evaluation 2. Status fall with headache, will get MRI of the brain 3. Depression 4. Anxiety 5. Diabetes Mellitus 6. History fo TIA PLAN: 1. Will get MRI of the brain 2. Dr. Gray consultation to look at the vocal cords 3. Out of bed to chair activity as tolerated Will follow the patient in daily rounds. TIME SPENT: More than 35 minutes MTDD
--- NOTE | 2017-04-24 14:24 | HP ---
DATE OF SERVICE: 04/22/17 CHIEF COMPLAINT: Substance overdose and not able to talk. HISTORY OF PRESENT ILLNESS: The patient is a 47 year old female who was brought to the emergency room as the patient was unresponsive and laying outside on lawn. The patient is responding to the voice and contact stimuli. She is nonverbal but will look around. Skin is dry and pale. The patient was evaluated in the emergency room by Dr. Stallings. WBC was normal, sugar 242, potassium 3.3, urine negative, toxicology screen was positive for the benzos. As patient was not talking the patient had CT scan of the head and there is no acute processes in the CT head. Meanwhile the question able the suicidal ideation and the mental was approached with the patient's case. As patient was medically not stable the patient was not transferred to anyplace. At that time she is being admitted to the [facility] for the care and treatment. REVIEW OF SYSTEMS: CONSTITUTIONAL: No fever, no chills. Weakness and tiredness. Not able to talk. HEENT: Normal. ENDOCRINE: No weight gain; no weight loss. CVS: No chest pain. No PND, no orthopnea. No shortness of breath. No PND, no orthopnea. RESPIRATORY: No cough, no congestion. No hemoptysis. GI: Nausea, no vomiting. No abdominal pain. No melena. Headache. : No hematuria. No polyuria. MUSCULOSKELETAL: No joint swelling. PSYCHIATRIC: Not anxious. No depression. No suicidal thoughts. No homicidal thoughts. SKIN: Intact, no open lesions. PAST MEDICAL HISTORY: CVA in 2016 Headaches Asthmatic bronchitis History of rheumatoid arthritis Diabetes Depression Anxiety Alcohol use PAST SURGICAL HISTORY: Hysterectomy History of thyroid cancer PERSONAL HISTORY: The patient does smoke and drink. No drugs at this time. Family history is significant for the lung cancer, breast cancer and the diabetes. MEDICATIONS: Trazodone Synthroid Zoloft NovoLog Lipitor [place] Diazepam Diphenhydramine ALLERGIES: Toradol Codeine Fluoxetine Ibuprofen Prednisone PHYSICAL EXAMINATION: V/S: Blood pressure 118/79, respiratory rate 16, heart rate 67, temperature 98.2 , saturation is 98 on room air. HEENT: Atraumatic, normocephalic. No scleral icterus. Mucosa dry. NECK: Supple. No JVD, no bruit. No lymphadenopathy. No thyromegaly. HEART: S1, S2 normal. No murmur. No cyanosis or clubbing. No ascites. LUNGS: Clear to auscultation. No rales or rhonchi. ABDOMEN: Soft, nontender. Bowel sounds are active. No CVA tenderness. No rigidity or guarding. EXTREMITIES: No cyanosis, clubbing or pedal edema. MUSCULOSKELETAL: Normal joints, no swelling. NEUROLOGIC: The patient is awake and alert and oriented to time, place and person but the patient is not verbal, says that she can not talk. SKIN: Intact; no open lesions. LYMPHATIC: No lymph nodes palpable. ASSESSMENT: 1. Questionable suicidal ideation 2. Aphagia under evaluation 3. Status post fall, CT head negative 4. History of stroke 5. Depression 6. Anxiety PLAN: 1. Admit patient to the regular floor 2. CBC and CMP today and daily 3. Fall precautions 4. Decubitus ulcer precaution. 5. Nothing by mouth for now. 6. D5 normal saline 7. Accu-check with coverage. TIME SPENT: MORE THAN 70 minutes MTDD
[2017-04-24] MEDS: DEXTROSE 5%-NS IV SOLUTION 1,000 ML IV SCH ×2 (18:41→20:48)
[2017-04-25] MEDS: K-DUR PO SCH ×2 (08:25→17:01)
[2017-04-25] MEDS: TYLENOL PO PRN ×2 (09:05→21:09)
[2017-04-25] MEDS: DEXTROSE 5%-NS IV SOLUTION 1,000 ML IV SCH (17:15)
[2017-04-25] MEDS ORDERED: LIPITOR PO SCH (20:30)
[2017-04-25] MEDS ORDERED: NON-FORMULARY MEDICATION (Sertraline Hcl [Zoloft] 200 MG) PO SCH ×22 (21:00)
[2017-04-25] MEDS ORDERED: TRAZODONE HCL 300 MG PO SCH (21:00)
[2017-04-25] MEDS ORDERED: ZOLOFT ONE (21:05)
[2017-04-25] MEDS ORDERED: DESYREL ONE (21:05)
[2017-04-25] MEDS ORDERED: INSULIN GLARGINE HUM REC ANLOG 30 UNIT SQ SCH (21:45)
[2017-04-25] MEDS ORDERED: LANTUS SUBCUT STA (21:47)
[2017-04-26] MEDS ORDERED: LEVOTHYROXINE SODIUM 137 MCG PO SCH ×21 (06:30)
[2017-04-26] MEDS ORDERED: HUMALOG SUBCUT SCH (08:00)
[2017-04-26] MEDS: SYNTHROID PO SCH ×2 (09:10)
[2017-04-26] MEDS: K-DUR PO SCH ×2 (09:11→17:36)
[2017-04-26] MEDS: HUMALOG SUBCUT SCH ×2 (12:25→17:35)
[2017-04-26] MEDS: DEXTROSE 5%-NS IV SOLUTION 1,000 ML IV SCH (12:26)
[2017-04-26] MEDS: TYLENOL PO PRN ×2 (12:29→21:00)
[2017-04-26] MEDS: BENADRYL PO SCH (20:54)
[2017-04-26] MEDS ORDERED: LANTUS SUBCUT SCH (21:00)
[2017-04-26] MEDS ORDERED: DESYREL PO SCH (21:00)
[2017-04-26] MEDS ORDERED: LIPITOR PO SCH (21:00)
[2017-04-26] MEDS ORDERED: ZOLOFT PO SCH (21:00)
[2017-04-27] MEDS: SYNTHROID PO SCH ×2 (05:49)
[2017-04-27] MEDS: TYLENOL PO PRN (05:53)
[2017-04-27] MEDS: K-DUR PO SCH (08:47)
[2017-04-27] MEDS: BENADRYL PO SCH (08:48)
[2017-04-27] MEDS: HUMALOG SUBCUT SCH ×2 (08:48→11:08)
[2017-04-27] MEDS: DEXTROSE 5%-NS IV SOLUTION 1,000 ML IV SCH (09:13)
[2017-04-27 13:17] VITALS: BP 125/85; TEMP 98.2
--- NOTE | 2017-04-27 13:57 | CT ---
EXAM: CT soft tissue neck without contrast HISTORY: Sore throat, dysphagia COMPARISON: None TECHNIQUE: CT soft tissue neck performed without intravenous contrast. Coronal and sagittal reforma tted images obtained. FINDINGS: Mastoid air cells clear. Visualized paranasal sinuses clear. Anterior cervical fusion [employer] C5-C6. Bulky osteophytes seen anteriorly at C3-C4. Degenerative change in the spine. Globes a nd retrobulbar structures unremarkable. Parotid glands and submandibular glands appear normal. No l ymphadenopathy identified. Thyroid markedly enlarged with substernal extension. Evaluation of the a erodigestive tract demonstrates no exophytic mass lesion or area of focal mass effect. Tonsils and a denoids are not enlarged. Epiglottis appears normal. Prevertebral soft tissues appear normal. IMPRESSION: 1. Markedly enlarged thyroid with substernal extension. Recommend correlation with ultrasound. 2. Bulky anterior osteophytes at C3-C4. This could contribute to dysphagia.
--- NOTE | 2017-04-27 15:43 | PN ---
DATE OF SERVICE: 04/24/17 SUBJECTIVE: The patient was admitted from the emergency room for questionable overdose with the medication and asphasia. MRI of the brain did not show any injury or acute stroke. Dr. Gray supposed to see the patient. The patient is able to drink fine, swallow fine, no chocking episodes but the patients says that she can not talk. She has been communicating with us with the writing on the paper. REVIEW OF SYSTEMS: CONSTITUTIONAL: No fever, no chills. HEENT: Normal. ENDOCRINE: No weight gain, no weight loss. CVS: No angina symptoms. No CHF symptoms. No palpitations. No atypical chest pain for CAD. No shortness of breath. No PND, no orthopnea. RESPIRATORY: No cough, no hemoptysis. GI: No nausea, no vomiting. No abdominal pain. : No hematuria. No polyuria. MUSCULOSKELETAL:. No joint swelling. PSYCHIATRIC: Not anxious. No depression. No suicidal thoughts. No homicidal thoughts. SKIN: Intact. No rash. PHYSICAL EXAMINATION: V/S: Blood pressure 138/91, respiratory rate 18, heart rate 66, temperature 97.9. HEENT: Normocephalic, atraumatic. NECK: Supple. No JVD, no carotid bruit. No lymphadenopathy. LUNGS: Clear to auscultation. No rales or rhonchi. HEART: S1, S2 normal. No S3. No murmur, gallop or regurgitation. ABDOMEN: Soft, nontender. Bowel sounds active. No rigidity. No rebound or guarding. No CVA tenderness. EXTREMITIES: No clubbing, cyanosis or pedal edema. MUSCULOSKELETAL: No joint swelling. NEUROLOGIC: Awake, alert, oriented times three. No focal deficit. LYMPHATIC: No lymph nodes palpable. SKIN: Intact. LABS: WBC 9.26, hgb 12.5, hct 36.0, plt count 197, sodium 139, potassium 4.2, chloride 103, bicarb 27, BUN 10, creatinine 0.83 ASSESSMENT: 1. Aphasia , inability to talk 2. Status post change in mental status secondary to the possible substance use 3. Diabetes 4. Hypertension 5. Bronchial asthma 6. Rheumatoid arthritis 7. History of thyroid cancer 8. Depression 9. History of Trismus TMJ PLAN: 1. Wait for Dr. Gray to come and see the patient 2. Followup on the MRI of the brain report 3. Speech evaluation 4. Fall precautions 5. Accu-checks with the coverage Will follow the patient in daily rounds. TIME SPENT: More than 35 minutes MTDD
--- NOTE | 2017-04-27 15:51 | PN ---
DATE OF SERVICE: 04/25/17 SUBJECTIVE: The patient is still not able to talk. Dr. Gray did not come and see the patient because he was sick. Apparently a few of the nurses did noted that the patient was uttering the words but she immediately stopped that when they tried to come back. Still communicating through the paper and writing on the paper otherwise no difficulty swallowing. The patient's significant other is in the room. REVIEW OF SYSTEMS: CONSTITUTIONAL: No fever, no chills. HEENT: Normal. ENDOCRINE: No weight gain, no weight loss. CVS: No angina symptoms. No CHF symptoms. No palpitations. No atypical chest pain for CAD. No shortness of breath. No PND, no orthopnea. RESPIRATORY: No cough, no hemoptysis. GI: No nausea, no vomiting. No abdominal pain. : No hematuria. No polyuria. MUSCULOSKELETAL:. No joint swelling. PSYCHIATRIC: Not anxious. No depression. No suicidal thoughts. No homicidal thoughts. SKIN: Intact. No rash. PHYSICAL EXAMINATION: V/S: blood pressure 135/93, respiratory rate 16, heart rate 73 and temperature 98.1 HEENT: Normocephalic, atraumatic. Mucosa dry. NECK: Supple. No JVD, no carotid bruit. No lymphadenopathy. LUNGS: Clear to auscultation. No rales or rhonchi. HEART: S1, S2 normal. No S3. No murmur, gallop or regurgitation. ABDOMEN: Soft, nontender. Bowel sounds active. No rigidity. No rebound or guarding. No CVA tenderness. EXTREMITIES: No clubbing, cyanosis or pedal edema. MUSCULOSKELETAL: No joint swelling. NEUROLOGIC: Awake, alert, oriented times three. No focal deficit. LYMPHATIC: No lymph nodes palpable. SKIN: Intact. LABS: Sodium 139, potassium 4.2, chloride 103, bicarb 27, BUN 10, creatinine 0.83, WBC 9.26, hgb 12.5, hct 36.0, plt count 197 ASSESSMENT: 1. Asphasia, Status post unresponsiveness which is better now 2. Diabetes, Labile 3. Hypertension 4. Dyslipidemia 5. Bronchial asthma 6. History of thyroid cancer PLAN: 1. Accu-check with the coverage 2. Out of bed to chair activity as tolerated 3. At this stage as the patient's asphasia is still not clear etiology and most likely maybe malinger but given her history we will further evaluate it and make sure no neurological deficit that patient is having. TIME SPENT: More than 35 minutes MTDD
--- NOTE | 2017-05-05 10:35 | PN ---
DATE OF SERVICE: 04/26/17 SUBJECTIVE: The patient was admitted with aphasia after having a substance use and spell of unconsciousness. The patient somehow dramatically started talking today. With the Nurse Katalina and the nurse says that she is talking fine. Complains of having severe throat pain and feels like there is something in the throat. REVIEW OF SYSTEMS: CONSTITUTIONAL: No fever, no chills. HEENT: Normal. ENDOCRINE: No weight gain, no weight loss. CVS: No angina symptoms. No CHF symptoms. No palpitations. No atypical chest pain for CAD. No shortness of breath. No PND, no orthopnea. RESPIRATORY: No cough, no hemoptysis. GI: No nausea, no vomiting. No abdominal pain. : No hematuria. No polyuria. MUSCULOSKELETAL:. No joint swelling. PSYCHIATRIC: Not anxious. No depression. No suicidal thoughts. No homicidal thoughts. SKIN: Intact. No rash. PHYSICAL EXAMINATION: V/S: Blood pressure 116/80, respiratory rate 16, heart rate 71, temperature 97.4 , saturation 98% on the room air. HEENT: Normocephalic, atraumatic. Throat and nasal pharynx shows some redness but no mass is seen. Some cervical lymph nodes are swollen. NECK: Supple. No JVD, no carotid bruit. No lymphadenopathy. LUNGS: Clear to auscultation. No rales or rhonchi. HEART: S1, S2 normal. No S3. No murmur, gallop or regurgitation. ABDOMEN: Soft, nontender. Bowel sounds active. No rigidity. No rebound or guarding. No CVA tenderness. EXTREMITIES: No clubbing, cyanosis or pedal edema. MUSCULOSKELETAL: No joint swelling. NEUROLOGIC: Awake, alert, oriented times three. No focal deficit. LYMPHATIC: No lymph nodes palpable. SKIN: Intact. LABS: WBC 9.26, hgb 12.5, hct 36.0, plt count 197, sodium 139, potassium 4.2, chloride 103, bibcarb 27, BUN 10, creatinine 0.83 ASSESSMENT: 1. Aphasia which has resolved now 2. Sore throat and the throat pain, will get CAT scan of the soft tissue of the neck 3. History of depression 4. Anxiety 5. TMJ problems 6. Substance use 7. CVA 8. Headaches 9. History of throat cancer per patient 10.Continued nicotine use. PLAN: 1. CT of the soft tissue of the neck 2. Benadryl 25mg twice a day 3. Accu-checks with coverage Will follow the patient in daily rounds. TIME SPENT: More than 30 minutes MTDD
--- NOTE | 2017-06-17 09:25 | DS ---
DATE OF SERVICE: 04/27/17 FINAL DIAGNOSIS: 1. Aphasia which resolved spontaneously 2. Sore throat, CT scan of neck is negative 3. History of depression 4. Anxiety 5. TMJ problems 6. Substance use 7. History CVA with no residual weakness 8. Headaches 9. History of throat cancer per patient but there was no documentation I could find 10.Continued nicotine use 11.Diabetes DISCHARGE INSTRUCTIONS: Discharge the patient home. Followup with the PMD within 5-7 days. [facility] neurology. Continue the home medication. MEDICATIONS AT DISCHARGE: Hydrocodone Lipitor Diazepam Insulin Synthroid Zofran Zoloft Trazodone NEW PRESCRIPTIONS: None. DIET INSTRUCTIONS: 2,000 ADA diet ACTIVITY: As much as tolerated SMOKING: Current smoker DISEASE SPECIFIC EDUCATION: Depression and anxiety been discussed with patient repeatedly HOSPITAL COURSE: Tara Carver who is a 47 year old female was brought to the emergency room after having change in the mental status and behaving fun, questionable drug intoxication. Drug screen showed only Xanax and benzo otherwise nothing else was found. The patient was not talking. CT of the head was done which did not show any stroke. She says that she could not have talk. No having any problems swallowing and no verbal communication at all. At that time the patient was admitted to the hospital with IV fluids. Did not have any problems swallowing, eating with no choking episodes. So diet was continued and Accu-checks with the coverage was given. MRI of the brain showed the minor leukomalacia mostly empty sella. Throat examination did not reveal any significant findings and the kept telling that the patient was not able to talk or articulate. Continued to monitor the patient. Repeat CT scan of the neck was done and did not show any abnormalities there. She was complaining some difficulty swallowing but meanwhile the patient was going out and smoking cigarettes and was doing everything but when it was coming to talking she was not able to talk. In between nurses also complain that she did utter some kind of words but did not start the talking but finally she just started by herself. The patient started talking and did not have any problems. Most likely the patient was faking the episode because it did not go with any neurological deficit given the patient's condition. The patient was feeling better and did not have any problems at that time she was discharge home and neurology evaluate as outpatient at the [facility]. TIME SPENT: MORE THAN 55 MINUTES MTDD
== END 2017-04-27 15:20 | disposition home or self-care (01) | DRG 93 ==
LOC: ED 07:01 → MEDSURG B 17:46
PROVIDERS: ADMIT Emergency Medicine; ATTEND Emergency Medicine
DX: R47.01 Aphasia (principal); R47.02 Dysphasia; R41.82 Altered mental status, unspecified; R53.1 Weakness; J02.9 Acute pharyngitis, unspecified; R55 Syncope and collapse; R51 Headache; F41.8 Other specified anxiety disorders; F15.90 Other stimulant use, unspecified, uncomplicated; E11.9 Type 2 diabetes mellitus without complications; M26.609 Unspecified temporomandibular joint disorder, unspecified side; J45.909 Unspecified asthma, uncomplicated; M06.9 Rheumatoid arthritis, unspecified; F17.200 Nicotine dependence, unspecified, uncomplicated; W19.XXXA Unspecified fall, initial encounter; Z79.4 Long term (current) use of insulin; Z79.899 Other long term (current) drug therapy; Z86.73 Personal history of transient ischemic attack (TIA), and cerebral infarction without residual deficits; Z85.850 Personal history of malignant neoplasm of thyroid
CPT/HCPCS: 36415; 80053; 80306; 80307; 81001; 82962; 85025; 93005; 93010; 96360; 96361; 99223; 99233; 99239; 99284

== ENCOUNTER 2017-05-11 08:58 | Emergency (ER) ==
[2017-05-11 09:02] VITALS: BP 160/89; TEMP 97.1; BMI 29.2
[2017-05-11] MEDS ORDERED: ZOFRAN 4 MG/2 ML IM STA (09:09)
--- NOTE | 2017-05-11 09:11 | ED.PDOC ---
General ED Provider: Dr. THONG LEE Chief Complaint: Headache Stated Complaint: headache Time Seen by Physician: 09:00 (seen with twan at all times ) Mode of Arrival: Walk-In Information Source: Patient Exam Limitations: No limitations Primary Care Provider: JADEN ISIDRO Nursing and Triage Documentation Reviewed and Agree: Yes Neurological Complaint Exam - Headache Complaint/Exam Onset: Gradual Duration: 1 day Symptoms Are: Still present Timing: Constant Episodes Lasting: Hours Worst Headache Ever: No Initial Severity: Moderate Current Severity: Moderate Location: Diffuse Character: Reports: Throbbing Aggravating: Reports: None Alleviating: Reports: Medications Associated Signs and Symptoms: Reports: Nausea. Denies: Dizziness, Seizure, Vomiting, Sinus pressure, Fever, Neck pain, Neck stiffness, Decreased LOC, Visual changes Related History: Reports: Similar episode Related Surgical History: Reports: None SAH Risk Factors: Reports: None Meningitis Risk Factors: Reports: None SDH Risk Factors: Reports: None Temporal Arteritis Risk Factors: Reports: Female, Normal Head CT Within Last 12 Months: Yes Fundoscopic Exam: Present: Normal Findings Papilledema Present: No Temporal Artery Tenderness: Present: None Sinus Tenderness: Present: None TMJ Tenderness: Present: None Glascow Coma Scale (see protocol): 15 Meningeal Signs Positive: No Pain on Passive Flexion-Positive Kernig's: No ROM Limited In: No Limitiations Focal Weakness: Present: None Focal Sensory Loss: Present: None Gait: Normal Nystagmus Present: No Gag Reflex Present: No Differential Diagnoses: Migraine Review of Systems - Review Of Systems Constitutional: Reports: No symptoms Eyes: Reports: No symptoms Ears, Nose, Mouth, Throat: Reports: No symptoms Respiratory: Reports: No symptoms Cardiac: Reports: No symptoms GI: Reports: No symptoms : Reports: No symptoms Musculoskeletal: Reports: No symptoms Skin: Reports: No symptoms Neurological: Reports: Headache Endocrine: Reports: No symptoms Hematologic/Lymphatic: Reports: No symptoms All Other Systems: Reviewed and Negative Past Medical History - Past Medical History Previously Healthy: No Endocrine: Reports: DM 2 (insulin-requiring tpe DM), Hypothyroid Cardiovascular: Reports: None Respiratory: Reports: None Hematological: Reports: None Gastrointestinal: Reports: None Genitourinary: Reports: None Neuro/Psych: Reports: CVA (later in visit, patient stated via written note that she has had 3 CVAs), Migraine, Depression, Bipolar Disorder ((see meds)) Musculoskeletal: Reports: None Cancer: Reports: Unknown Last Menstrual Period: NONE Other Pertinent Past Medical History: KNEE,GALLBLADDER,BACK,NECK,HANDS - Surgical History General Surgical History: Reports: Cholecystectomy, Orthopedic (KNEE,BACK,NECK, HANDS) - Family History Family History: Reports: Unknown - Social History Smoking Status: Former smoker Hx Substance Use: No Alcohol Screening: None Physical Exam - Physical Exam Appearance: Well-appearing, No pain distress, Well-nourished Eyes: HU, EOMI, Conjunctiva clear ENT: Ears normal, Nose normal, Oropharynx normal Respiratory: Airway patent, Breath sounds clear, Breath sounds equal, Respirations nonlabored Cardiovascular: RRR, Pulses normal, No rub, No murmur GI/: Soft, Nontender, No masses, Bowel sounds normal, No Organomegaly Musculoskeletal: Normal strength, ROM intact, No edema, No calf tenderness Skin: Warm, Dry, Normal color Neurological: Sensation intact, Motor intact, Reflexes intact, Cranial nerves intact, Alert, Oriented Psychiatric: Affect appropriate, Mood appropriate Critical Care Note - Critical Care Note Total Time (mins): 0 Course - Course Vital Signs: Temp Pulse Resp BP Pulse Ox 05/11/17 08:58 97.1 F L 95 H 18 160/89 H 97 Departure - Departure Time of Disposition: 09:11 Disposition: HOME SELF-CARE Discharge Problem: Headache Instructions: Migraine Headache (ED) Condition: Good Pt referred to PMD for follow-up: Yes Additional Instructions: Please call your Family Physician as soon as possible to schedule a follow-up appointment. Allergies/Adverse Reactions: Allergies ketorolac [From Toradol] Adverse Reaction (Mild, Verified 05/11/17 09:03) Vomiting codeine Adverse Reaction (Verified 05/11/17 09:03) fluoxetine HCl [From Prozac] Adverse Reaction (Verified 05/11/17 09:03) ibuprofen [From Motrin] Adverse Reaction (Verified 05/11/17 09:03) Nausea prednisone Adverse Reaction (Verified 05/11/17 09:03) Home Medications: Ambulatory Orders Trazodone HCl 300 mg PO BEDTIME 02/01/13 Levothyroxine Sodium [Synthroid] 137 mcg PO BEDTIME 12/04/14 Sertraline HCl [Zoloft] 200 mg PO BEDTIME 12/04/14 Insulin Glargine,Hum.rec.anlog [Lantus Solostar] 30 units SQ BEDTIME 04/25/17 Insulin Lispro [Humalog Kwikpen U-100] 10 units SQ TIDWM 04/25/17
== END 2017-05-11 09:40 | disposition home or self-care (01) ==
LOC: ED 08:58
DX: R51 Headache (principal)
CPT/HCPCS: 96372; 99282

== ENCOUNTER 2017-06-30 20:08 | Outpatient (CLI) ==
[2013-02-01 21:24] VITALS: TEMP 96.6
== END 2017-06-30 20:34 | disposition short-term general hospital (02) ==
LOC: AMBL 20:08
PROVIDERS: ATTEND Internal Medicine Geriatric Medicine
DX: R41.0 Disorientation, unspecified (principal); R26.81 Unsteadiness on feet; E11.9 Type 2 diabetes mellitus without complications; Z86.73 Personal history of transient ischemic attack (TIA), and cerebral infarction without residual deficits

== ENCOUNTER 2017-08-30 18:47 | Emergency (ER) ==
[2017-08-30] MEDS ORDERED: PHENERGAN 25 MG/ML VIAL IM STA (18:48)
[2017-08-30] MEDS ORDERED: DILAUDID 2 MG/ML SYRINGE IM STA (18:48)
--- NOTE | 2017-08-30 18:52 | ED.PDOC ---
General ED Provider: Dr. RASHID KINNEY-ER Chief Complaint: Headache Stated Complaint: xander got a migraine [facility]--"xander had them all my life--this one is no different" Time Seen by Physician: 18:50 Mode of Arrival: Walk-In Information Source: Patient Exam Limitations: No limitations Primary Care Provider: JADEN ISIDRO Nursing and Triage Documentation Reviewed and Agree: Yes Reviewed sepsis parameters & appropriate labs ordered?: Yes System Inflammatory Response Syndrome: Not Applicable Sepsis Protocol: For patient's 13 years and over: Temp is 96.8 and below OR 101 and greater Pulse >90 BPM Resp >20/minute Acutely Altered Mental Status Are patient's symptoms suggestive of a new infection, such as: -Pneumonia -Skin, Soft Tissue -Endocarditis -UTI -Bone, Joint Infection -Implantable Device -Acute Abdominal Infection -Wound Infection -Meningitis -Blood Stream Catheter Infection -Unknown Neurological Complaint Exam - Headache Complaint/Exam Onset: Gradual Duration: several hours Symptoms Are: Still present Timing: Constant Worst Headache Ever: No Initial Severity: Mild Current Severity: Moderate Location: Diffuse Character: Reports: Dull, Throbbing, Typical headache, Migraine Aggravating: Reports: Bright lights Associated Signs and Symptoms: Reports: Nausea, Vomiting. Denies: Dizziness, Seizure Related History: Reports: Similar episode Related Surgical History: Reports: None SAH Risk Factors: Reports: None Meningitis Risk Factors: Reports: None Temporal Arteritis Risk Factors: Reports: Female, Normal Head CT Within Last 12 Months: Yes Fundoscopic Exam: Present: Normal Findings Papilledema Present: No Temporal Artery Tenderness: Present: None Sinus Tenderness: Present: None TMJ Tenderness: Present: None Glascow Coma Scale (see protocol): 15 Meningeal Signs Positive: No Pain on Passive Flexion-Positive Kernig's: No ROM Limited In: No Limitiations Focal Weakness: Present: None Focal Sensory Loss: Present: None Gait: Normal Nystagmus Present: No Gag Reflex Present: Yes [id number]: Normal Findings Romberg Test Positive: No Babinski Sign: Negative Right, Negative Left Heel to Toe Normal: Yes Differential Diagnoses: Migraine Review of Systems - Review Of Systems Constitutional: Reports: No symptoms Eyes: Reports: No symptoms Ears, Nose, Mouth, Throat: Reports: No symptoms Respiratory: Reports: No symptoms Cardiac: Reports: No symptoms GI: Reports: Nausea, Vomiting : Reports: No symptoms Musculoskeletal: Reports: No symptoms Skin: Reports: No symptoms Neurological: Reports: Headache Endocrine: Reports: No symptoms Hematologic/Lymphatic: Reports: No symptoms All Other Systems: Reviewed and Negative Past Medical History - Past Medical History Previously Healthy: No Endocrine: Reports: DM 2 (insulin-requiring tpe DM), Hypothyroid Cardiovascular: Reports: None Respiratory: Reports: None Hematological: Reports: None Gastrointestinal: Reports: None Genitourinary: Reports: None Neuro/Psych: Reports: CVA (later in visit, patient stated via written note that she has had 3 CVAs), Migraine, Depression, Bipolar Disorder ((see meds)) Musculoskeletal: Reports: None Cancer: Reports: Unknown Other Pertinent Past Medical History: KNEE,GALLBLADDER,BACK,NECK,HANDS - Surgical History General Surgical History: Reports: Cholecystectomy, Orthopedic (KNEE,BACK,NECK, HANDS) - Family History Family History: Reports: Unknown - Social History Smoking Status: Former smoker Hx Substance Use: No Alcohol Screening: None Physical Exam - Physical Exam Appearance: Well-appearing, No pain distress, Well-nourished Pain Distress: Moderate Eyes: HU, EOMI, Conjunctiva clear ENT: Ears normal Neck: Supple Respiratory: Airway patent, Breath sounds clear, Breath sounds equal, Respirations nonlabored Cardiovascular: RRR, Pulses normal, No rub, No murmur GI/: Soft, Nontender, No masses, Bowel sounds normal, No Organomegaly Musculoskeletal: Normal strength, ROM intact, No edema, No calf tenderness Skin: Warm, Dry, Normal color Neurological: Sensation intact, Alert, Oriented Psychiatric: Affect appropriate, Mood appropriate Re-Evaluation - Re-Evaluation Time of Re-Evaluation: 19:20 Status: Improved Vital Signs Stable: Yes Pain Level: 1 Appearance: NAD Lungs: Clear Skin: Warm and Dry Neuro: Alert and Oriented X3 CV: RRR Critical Care Note - Critical Care Note Total Time (mins): 0 Course - Course Orders, Labs, Meds: Orders Category Date Time Status Hydromorphone HCl/Pf [Dilaudid 2 mg/ml Syringe] MEDS 08/30/17 18:48 Discontinued 2 mg IM ONCE STA Promethazine HCl [Phenergan 25 mg/ml Vial] MEDS 08/30/17 18:48 Discontinued 25 mg IM ONCE STA Medications Discontinued Medications Generic Name Dose Route Start Last Admin Trade Name Freq PRN Reason Stop Dose Admin Hydromorphone HCl 2 mg 08/30/17 18:48 Dilaudid 2 Mg/Ml Syringe IM 08/30/17 18:49 ONCE STA Promethazine HCl 25 mg 08/30/17 18:48 Phenergan 25 Mg/Ml Vial IM 08/30/17 18:49 ONCE STA Vital Signs: Temp Pulse Resp BP Pulse Ox 08/30/17 18:51 97.1 F L 100 H 16 137/90 96 Departure - Departure Time of Disposition: 18:52 Disposition: HOME SELF-CARE Discharge Problem: Migraine Qualifiers: Migraine type: unspecified Status migrainosus presence: without status migrainosus Intractability: not intractable Qualified Code(s): G43.909 - Migraine, unspecified, not intractable, without status migrainosus Instructions: Migraine Headache (ED) Condition: Good Pt referred to PMD for follow-up: Yes IPMP verified?: No Additional Instructions: f/u with pcp Allergies/Adverse Reactions: Allergies ketorolac [From Toradol] Adverse Reaction (Mild, Verified 08/30/17 18:54) Vomiting codeine Adverse Reaction (Verified 08/30/17 18:54) fluoxetine HCl [From Prozac] Adverse Reaction (Verified 08/30/17 18:54) ibuprofen [From Motrin] Adverse Reaction (Verified 08/30/17 18:54) Nausea prednisone Adverse Reaction (Verified 08/30/17 18:54) Home Medications: Ambulatory Orders Trazodone HCl 300 mg PO BEDTIME 02/01/13 Levothyroxine Sodium [Synthroid] 137 mcg PO BEDTIME 12/04/14 Sertraline HCl [Zoloft] 200 mg PO BEDTIME 12/04/14 Insulin Glargine,Hum.rec.anlog [Lantus Solostar] 30 units SQ BEDTIME 04/25/17 Insulin Lispro [Humalog Kwikpen U-100] 10 units SQ TIDWM 04/25/17 Ondansetron HCl [Zofran] 8 mg PO Q8-12H PRN #0 tab-cap 05/12/17 Amoxicillin 500 mg PO TID 7 Days tab-cap 06/23/17 Ondansetron HCl [Zofran] 8 mg PO TID PRN #8 tab-cap 06/23/17 Disposition Discussed With: Patient
[2017-08-30 18:53] VITALS: BP 137/90; TEMP 97.1; BMI 27.4
== END 2017-08-30 19:35 | disposition home or self-care (01) ==
LOC: ED 18:47
DX: G43.909 Migraine, unspecified, not intractable, without status migrainosus (principal)
CPT/HCPCS: 96372; 99283

== ENCOUNTER 2017-09-01 13:33 | Outpatient (CLI) ==
[2017-09-01 14:07] VITALS: BP 170/78; TEMP 98
[2017-09-01] MEDS: VALIUM SYRINGE IVP STA ×4 (14:21→15:31)
== END 2017-09-01 13:34 | disposition home or self-care (01) ==
LOC: OPMED 13:33
PROVIDERS: ATTEND Otolaryngology
DX: M26.609 Unspecified temporomandibular joint disorder, unspecified side (principal)
CPT/HCPCS: 96374; 96376

== ENCOUNTER 2017-09-02 16:36 | Outpatient (CLI) ==
[2013-02-01 21:24] VITALS: TEMP 96.6
== END 2017-09-02 16:37 | disposition home or self-care (01) ==
LOC: LAB 16:36
PROVIDERS: ATTEND Family Medicine
DX: E03.9 Hypothyroidism, unspecified (principal); E78.2 Mixed hyperlipidemia; I10 Essential (primary) hypertension; F33.2 Major depressive disorder, recurrent severe without psychotic features; E10.9 Type 1 diabetes mellitus without complications; N30.90 Cystitis, unspecified without hematuria; E66.9 Obesity, unspecified; F41.9 Anxiety disorder, unspecified; G47.00 Insomnia, unspecified; R03.0 Elevated blood-pressure reading, without diagnosis of hypertension
CPT/HCPCS: 36415; 80053; 83036; 85025; 87086

== ENCOUNTER 2017-09-09 13:16 | Outpatient (CLI) ==
[2013-02-01 21:24] VITALS: TEMP 96.6
== END 2017-09-09 13:17 | disposition home or self-care (01) ==
LOC: LAB 13:16
PROVIDERS: ATTEND Family Medicine
DX: R41.89 Other symptoms and signs involving cognitive functions and awareness (principal); D72.829 Elevated white blood cell count, unspecified; R73.9 Hyperglycemia, unspecified
CPT/HCPCS: 36415; 80053; 80306; 85025

== ENCOUNTER 2017-09-14 13:08 | Outpatient (RCR) ==
[2013-02-01 21:24] VITALS: TEMP 96.6
[2017-09-14 16:23] VITALS: BMI 32.0
--- NOTE | 2017-09-15 09:55 | RS.OPPTEV2 ---
Date of Note: 09/14/17 Visit #: 1 Date of Evaluation: 09/14/17 Payer Source: Medicaid Treatment Diagnosis: Multiple falls, balance impairment History of Condition/Mechanism of Injury:: Patient reports that she has had multiple falls. States she gets worse when she has a stroke. She is unable to give the onset of her CVA's. Prior Level of Function.....Patient was independent with: ADL's, Self Care, Ambulation/Mobility, Community Integration/Access Functional Limitations: Ambulation, Community Access/Integration Current Subjective/complaints:: Patient reports falling twice in the last couple of weeks. States she does not know why she falls. Reports hitting the left side of the face when she feel a few weeks ago and then states a few days later she feel forward, landing on the right shoulder. Reports right shoulder pain since her fall. States she is a Diabetic and she feels like that is her biggest problem. States she has neuropathy in the LE's, sometimes all the way up her legs. States she is supposed to be using an assistive device when she walks, but she does not have anything. Patient demonstrates delayed response and action time. Medical History Medical History: Diabetes Medical History Comments:: depression Surgical History: Cholecystectomy, Hysterectomy Surgical History Comments:: left knee surgery, pt reports has had back surgery and is on disability from her back problems. Neck surgery, bilateral Carpal Tunnel surgery Smoking Status: Never smoker Hx Home Medications: Reports she is on multiple medication and she did not bring her list. States she has been taking Valium for a long time. Patient's Goals: Her goal is to avoid falls. Functional Outcome Measure Tinetti: 14 (14=50% impairment) - G Codes & Severity Modifier G Codes & Modifier: NA Source of G Code score: NA Observation - Observation Posture: Forward Head, Rounded Shoulders Gait - Gait Pattern Gait Comments: Patient ambulates without an assistive device. She demonstrates slow movements in the department and an unsteady gait. She demonstrates loss of balance to her right upon ambulation in the department. She exhibits minimal foot clearance bilaterally and decreased reciprocal arm swing. She demonstrates discontinuity between steps when changing directions and needs contact to minimal assistance to maintain her balance. General Range of Motion: Bilateral LE AROM is WFL's. Left UE AROM is WFL's Patient demonstrates limited right shoulder flexion and scaption when requested to move the arm, but when leaving department, she is able to use the right UE through full ROM to corinne jacket. Muscle Strength: Pt displays generally 4+/5 of bilateral LE's. Sensation - Sensation Comments: Patient reports impaired sensation along right lateral and medial lower leg. Balance - Sitting Balance Static Sitting Balance: Good (-) Dynamic Sitting Balance: Good (-) - Standing Balance Static Standing Balance: Fair Dynamic Standing Balance: Fair - Comments Balance Assessment Comments: Demonstrates delayed reactions when COG is challenged in sitting and standing. Demonstrates no loss of balance with eyes closed in standing. TUG time of 14.2 seconds Coordination - Tests Bilateral Finger to Nose: Mild Deviation Heel to Perla: Normal/Intact Toe Tapping: Normal/Intact Interventions - Exercise/Activities/Manual Therapy Exercises/Activities: NA Manual Therapy: NA - Charges Timed Code Treatment Minutes: 50 mins Total Treatment Time: 50 mins Procedures billed for this date of service:: EVAL Medium complexity EVALUATION COMPLEXITY LEVEL EVALUATION COMPLEXITY LEVEL: HISTORY: Medium, EXAM OF BODY SYSTEMS: Medium, CLINICAL PRESENTATION: Medium, CLINICAL DECISION MAKING: Medium Assessment Assessment: Patient presents to therapy with diagnosis of falls. Patient is poor historian of how she is falling or how long she has been falling. She demonstrates delayed response and reaction time throughout the evaluation. She presents to be a high risk for falls per Tinetti Assessment. She demonstrates functional AROM and muscle strength. She demonstrates potential to decrease her risk for falls with therapy for balance reaction and strength training. Patient Education: Education of Plan of Care Rehab Potential: Fair Short Term Goals Goal #1: Pt compliant with HEP. Goal to be met by: 09/29/17 Goal #2: Static standing balance improved to Fair +. Goal to be met by: 09/29/17 Goal #3: Pt to amb. in department with good foot clearance and straight path. Goal to be met by: 09/29/17 Care Home Goals Goal #1: Pt knows HEP and to continue ex's to maintain functional level at D/C. Goal to be met by: 10/30/17 Goal #2: Tinetti score improved to 20/28, showing decreased risk for falls. Goal to be met by: 10/30/17 Goal #3: Pt to ambulate community distances with minimal gait deviations. Goal to be met by: 10/30/17 Goal #4: Pt to report no falls. Goal to be met by: 10/30/17 Plan - Treatment to be Provided Procedures: Therapeutic Exercises, Therapeutic Activity, Neuromuscular Rehab, Patient Education Modalities: No Modalities - Treatment Plan Frequency: 3 X week Duration: 4 weeks ORDER # VISITS AND/OR THROUGH DATE: 10/30/17 - Treatment Code (1) Gait abnormality Code(s): R26.9 - UNSPECIFIED ABNORMALITIES OF GAIT AND MOBILITY Comments: R26.9 (2) Impairment of balance Code(s): R26.89 - OTHER ABNORMALITIES OF GAIT AND MOBILITY Comments: R26.89 (3) Multiple falls Code(s): R29.6 - REPEATED FALLS Comments: R29.6
--- NOTE | 2017-09-17 16:28 | RS.CXNS ---
Date of scheduled appointment: 09/17/17 Type: No Show
== END 2017-09-30 ==
PROVIDERS: ATTEND Family Medicine
DX: R29.6 Repeated falls (principal); W19.XXXD Unspecified fall, subsequent encounter

== ENCOUNTER 2017-09-14 15:50 | Outpatient (CLI) ==
[2013-02-01 21:24] VITALS: TEMP 96.6
--- NOTE | 2017-09-15 08:02 | DI ---
Exam: Two x-rays of the right clavicle. Comparison: None available. Reason for exam: Pain in right shoulder. FINDINGS: Operative changes are seen after anterior cervical discectomy and fusion. The right clavi trell is intact. 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 Impression: No acute fracture or malalignment is seen in the right clavicle.
== END 2017-09-14 15:51 | disposition home or self-care (01) ==
LOC: RAD 15:50
PROVIDERS: ATTEND Family Medicine
DX: E10.9 Type 1 diabetes mellitus without complications (principal); M25.511 Pain in right shoulder
CPT/HCPCS: 36415; 83519; 84681; 86341

== ENCOUNTER 2017-09-14 16:11 | Emergency (ER) ==
[2017-09-14 16:23] VITALS: BP 130/82; TEMP 98.2; BMI 32.0
--- NOTE | 2017-09-14 16:36 | ED.PDOC ---
General ED Provider: Dr. THONG LEE Chief Complaint: Shoulder Pain/Injury Stated Complaint: right shouldr pain Time Seen by Physician: 16:30 (fall right shoulder pain) Mode of Arrival: Walk-In Information Source: Patient Exam Limitations: No limitations Primary Care Provider: DALILA HOOD Nursing and Triage Documentation Reviewed and Agree: Yes Reviewed sepsis parameters & appropriate labs ordered?: Yes System Inflammatory Response Syndrome: Not Applicable Sepsis Protocol: For patient's 13 years and over: Temp is 96.8 and below OR 101 and greater Pulse >90 BPM Resp >20/minute Acutely Altered Mental Status Are patient's symptoms suggestive of a new infection, such as: -Pneumonia -Skin, Soft Tissue -Endocarditis -UTI -Bone, Joint Infection -Implantable Device -Acute Abdominal Infection -Wound Infection -Meningitis -Blood Stream Catheter Infection -Unknown System Inflammatory Response Syndrome: Not Applicable Musculoskeletal Complaint Exam - Shoulder Pain Complaint/Exam Mechanism of Injury: Reports: Trauma (fall 1 day ago) Onset/Duration: 4 days ago Symptoms Are: Still present Timing: Constant Episodes Lastin days of right shoulder Initial Severity: Moderate Current Severity: Moderate Location: Reports: Discrete Character: Reports: Dull, Aching Alleviating: Reports: None Aggravating: Reports: None Associated Signs and Symptoms: Denies: Swelling, Redness, Bruising, Fever, Weakness, Numbness, Tingling Related History: Reports: Similar episode Non-Orthopedic Risk Factors: Reports: None DVT Risk Factors: Reports: None Septic Arthritis Risk Factors: Reports: None Related Surgical History: Reports: None Shoulder Findings: Absent: Swelling, Ecchymosis, Abnormal contour, Rotation, Ligamentous instability, Laceration, Erythema, Warmth, Blisters, Other joint pain, Foreign body, Adson's Sign Tenderness: Present: Rotator cuff muscles Limited Range of Motion: Present: Abduction, Adduction, Flexion, Extension, Internal rotation, Rotator cuff insertion Differential Diagnoses: Rotator Cuff Injury, Sprain, Strain Review of Systems - Review Of Systems Constitutional: Reports: No symptoms Eyes: Reports: No symptoms Ears, Nose, Mouth, Throat: Reports: No symptoms Respiratory: Reports: No symptoms Cardiac: Reports: No symptoms GI: Reports: No symptoms : Reports: No symptoms Musculoskeletal: Reports: Joint pain (right shoulder ) Skin: Reports: No symptoms Neurological: Reports: No symptoms Endocrine: Reports: No symptoms Hematologic/Lymphatic: Reports: No symptoms All Other Systems: Reviewed and Negative Past Medical History - Past Medical History Previously Healthy: No Endocrine: Reports: DM 2 (insulin-requiring tpe DM), Hypothyroid Cardiovascular: Reports: None Respiratory: Reports: None Hematological: Reports: None Gastrointestinal: Reports: None Genitourinary: Reports: None Neuro/Psych: Reports: CVA (later in visit, patient stated via written note that she has had 3 CVAs), Migraine, Depression, Bipolar Disorder ((see meds)) Musculoskeletal: Reports: None Cancer: Reports: Unknown Last Menstrual Period: n/a Other Pertinent Past Medical History: KNEE,GALLBLADDER,BACK,NECK,HANDS - Surgical History General Surgical History: Reports: Cholecystectomy, Orthopedic (KNEE,BACK,NECK, HANDS) - Family History Family History: Reports: Unknown - Social History Smoking Status: Former smoker Hx Substance Use: No Alcohol Screening: None Physical Exam - Physical Exam Appearance: Well-appearing, No pain distress, Well-nourished Eyes: HU, EOMI, Conjunctiva clear ENT: Ears normal, Nose normal, Oropharynx normal Respiratory: Airway patent, Breath sounds clear, Breath sounds equal, Respirations nonlabored Cardiovascular: RRR, Pulses normal, No rub, No murmur GI/: Soft, Nontender, No masses, Bowel sounds normal, No Organomegaly Musculoskeletal: Limited ROM (right shoulder ) Skin: Warm, Dry, Normal color Neurological: Sensation intact, Motor intact, Reflexes intact, Cranial nerves intact, Alert, Oriented Psychiatric: Affect appropriate, Mood appropriate Critical Care Note - Critical Care Note Total Time (mins): 0 Course - Course Vital Signs: Temp Pulse Resp BP Pulse Ox 09/14/17 16:21 98.2 F 82 16 130/82 97 Departure - Departure Time of Disposition: 17:40 Disposition: HOME SELF-CARE Discharge Problem: Shoulder pain, Injury of shoulder region Rotator cuff arthropathy Qualifiers: Laterality: right Qualified Code(s): M12.811 - Other specific arthropathies, not elsewhere classified, right shoulder Instructions: Rotator Cuff Injury (ED), Tendinitis (ED) Condition: Good Pt referred to PMD for follow-up: Yes IPMP verified?: No Additional Instructions: Please call your Family Physician as soon as possible to schedule a follow-up appointment. Allergies/Adverse Reactions: Allergies ketorolac [From Toradol] Adverse Reaction (Mild, Verified 09/14/17 16:23) Vomiting codeine Adverse Reaction (Verified 09/14/17 16:23) fluoxetine HCl [From Prozac] Adverse Reaction (Verified 09/14/17 16:23) ibuprofen [From Motrin] Adverse Reaction (Verified 09/14/17 16:) Nausea prednisone Adverse Reaction (Verified 09/14/17 16:23) Home Medications: Ambulatory Orders Insulin Lispro [Humalog Kwikpen U-100] 10 units SQ TIDWM 04/25/17
== END 2017-09-14 16:58 | disposition home or self-care (01) ==
LOC: ED 16:11
DX: M12.811 Other specific arthropathies, not elsewhere classified, right shoulder (principal); W19.XXXA Unspecified fall, initial encounter; E10.9 Type 1 diabetes mellitus without complications; M25.511 Pain in right shoulder
CPT/HCPCS: 36415; 80306; 83519; 84681; 86341; 99283

== ENCOUNTER 2018-03-10 07:57 | Outpatient (CLI) ==
[2013-02-01 21:24] VITALS: TEMP 96.6
--- NOTE | 2018-03-10 08:58 | DI ---
EXAM: Three views of the right ankle. History: Right ankle pain. Findings: No acute fracture or dislocation. Lateral soft tissue swelling is mild to moderate. Hype rtrophic osseous changes of the medial and lateral malleolus compatible with old ligamentous injury. Small enthesiophyte at the insertion of the Achilles tendon. Mild polyarticular joint space narrowi ng. Impression: No acute osseous abnormality. Lateral soft tissue swelling.
== END 2018-03-10 07:58 | disposition home or self-care (01) ==
LOC: LAB 07:57
PROVIDERS: ATTEND Family Medicine
DX: Z00.00 Encounter for general adult medical examination without abnormal findings (principal); E03.9 Hypothyroidism, unspecified; E11.9 Type 2 diabetes mellitus without complications; S99.911A Unspecified injury of right ankle, initial encounter
CPT/HCPCS: 36415; 80053; 80061; 80306; 81001; 82306; 83036; 84436; 84443; 85025

== ENCOUNTER 2018-03-10 08:36 | Emergency (ER) ==
[2018-03-10 08:45] VITALS: BP 107/76; TEMP 97.1; BMI 29.2
--- NOTE | 2018-03-10 09:13 | ED.PDOC ---
General ED Provider: Dr. THONG LEE Chief Complaint: Ankle Pain/Injury Stated Complaint: ANKLE PAIN RIGHT SIDE Time Seen by Physician: 09:00 Mode of Arrival: Walk-In Information Source: Patient Primary Care Provider: VENESSA SHEN Nursing and Triage Documentation Reviewed and Agree: Yes Does patient meet sepsis criteria?: No If yes, has appropriate treatment been initiated?: No System Inflammatory Response Syndrome: Not Applicable Sepsis Protocol: For patient's 13 years and over: Temp is 96.8 and below OR 101 and greater Pulse >90 BPM Resp >20/minute Acutely Altered Mental Status Are patient's symptoms suggestive of a new infection, such as: -Pneumonia -Skin, Soft Tissue -Endocarditis -UTI -Bone, Joint Infection -Implantable Device -Acute Abdominal Infection -Wound Infection -Meningitis -Blood Stream Catheter Infection -Unknown Musculoskeletal Complaint Exam - Lower Extremity Complaint/Exam Location of Pain: Reports: Ankle Mechanism of Injury: Reports: No known trauma Onset/Duration: 1 day Symptoms Are: Still present Initial Severity: Moderate Current Severity: Moderate Location: Reports: Discrete Character: Reports: Aching, Throbbing, Spasmodic Alleviating: Reports: Rest, Position Aggravating: Reports: Movement Able to Bear Weight: Yes Associated Signs and Symptoms: Denies: Swelling, Redness, Bruising, Fever, Weakness, Numbness, Tingling DVT Risk Factors: Reports: None Septic Arthritis Risk Factors: Reports: None Related Surgical History: Reports: None NV Bundle Intact Distal to Injury: No Differential Diagnoses: Strain, Sprain Review of Systems - Review Of Systems Constitutional: Reports: No symptoms Eyes: Reports: No symptoms Ears, Nose, Mouth, Throat: Reports: No symptoms Respiratory: Reports: No symptoms Cardiac: Reports: No symptoms GI: Reports: No symptoms : Reports: No symptoms Musculoskeletal: Reports: Joint pain (ANKLE PAIN) Skin: Reports: No symptoms Neurological: Reports: No symptoms Endocrine: Reports: No symptoms Hematologic/Lymphatic: Reports: No symptoms All Other Systems: Reviewed and Negative Past Medical History - Past Medical History Previously Healthy: No Endocrine: Reports: DM 2 (insulin-requiring tpe DM), Hypothyroid Cardiovascular: Reports: None Respiratory: Reports: None Hematological: Reports: None Gastrointestinal: Reports: None Genitourinary: Reports: None Neuro/Psych: Reports: CVA (later in visit, patient stated via written note that she has had 3 CVAs), Migraine, Depression, Bipolar Disorder ((see meds)) Musculoskeletal: Reports: None Cancer: Reports: Unknown Last Menstrual Period: n/a Other Pertinent Past Medical History: KNEE,GALLBLADDER,BACK,NECK,HANDS - Surgical History General Surgical History: Reports: Cholecystectomy, Orthopedic (KNEE,BACK,NECK, HANDS) - Family History Family History: Reports: Unknown - Social History Smoking Status: Former smoker Hx Substance Use: No Alcohol Screening: None Physical Exam - Physical Exam Appearance: Well-appearing, No pain distress, Well-nourished Eyes: HU, EOMI, Conjunctiva clear ENT: Ears normal, Nose normal, Oropharynx normal Respiratory: Airway patent, Breath sounds clear, Breath sounds equal, Respirations nonlabored Cardiovascular: RRR, Pulses normal, No rub, No murmur GI/: Soft, Nontender, No masses, Bowel sounds normal, No Organomegaly Musculoskeletal: Normal strength, ROM intact, No edema, No calf tenderness Skin: Warm, Dry, Normal color Neurological: Sensation intact, Motor intact, Reflexes intact, Cranial nerves intact, Alert, Oriented Psychiatric: Affect appropriate, Mood appropriate Critical Care Note - Critical Care Note Total Time (mins): 0 Course - Course Vital Signs: Temp Pulse Resp BP Pulse Ox 03/10/18 08:42 97.1 F L 83 16 107/76 96 Departure - Departure Time of Disposition: 10:15 Disposition: HOME SELF-CARE Discharge Problem: Ankle pain Pain in right ankle Qualifiers: Chronicity: acute Qualified Code(s): M25.571 - Pain in right ankle and joints of right foot Instructions: Arthralgia (ED), Ankle Sprain (ED) Condition: Good Pt referred to PMD for follow-up: Yes IPMP verified?: No Additional Instructions: Please call your Family Physician as soon as possible to schedule a follow-up appointment. Allergies/Adverse Reactions: Allergies ketorolac [From Toradol] Adverse Reaction (Mild, Verified 03/10/18 08:45) Vomiting codeine Adverse Reaction (Verified 03/10/18 08:45) fluoxetine HCl [From Prozac] Adverse Reaction (Verified 03/10/18 08:45) ibuprofen [From Motrin] Adverse Reaction (Verified 03/10/18 08:45) Nausea prednisone Adverse Reaction (Verified 03/10/18 08:45) Home Medications: Ambulatory Orders Insulin Lispro [Humalog Kwikpen U-100] 10 units SQ TIDWM 04/25/17
== END 2018-03-10 10:22 | disposition home or self-care (01) ==
LOC: ED 08:36
DX: M25.571 Pain in right ankle and joints of right foot (principal); E11.9 Type 2 diabetes mellitus without complications; Z79.4 Long term (current) use of insulin; Z86.73 Personal history of transient ischemic attack (TIA), and cerebral infarction without residual deficits
CPT/HCPCS: 36415; 80053; 80061; 80306; 81001; 82306; 83036; 84436; 84439; 84443; 85025; 99283

== ENCOUNTER 2018-03-28 11:31 | Emergency (ER) ==
[2018-03-28 11:39] VITALS: BP 128/88; TEMP 97.1; BMI 29.7
--- NOTE | 2018-03-28 11:55 | ED.PDOC ---
General ED Provider: Dr. RASHID KINNEY-ER Chief Complaint: Headache Stated Complaint: xander got a migraine--xander had ct scans and mri of my brain Time Seen by Physician: 11:53 Mode of Arrival: Walk-In Information Source: Patient Exam Limitations: No limitations Primary Care Provider: VENESSA SHEN Nursing and Triage Documentation Reviewed and Agree: Yes Does patient meet sepsis criteria?: No System Inflammatory Response Syndrome: Not Applicable Sepsis Protocol: For patient's 13 years and over: Temp is 96.8 and below OR 101 and greater Pulse >90 BPM Resp >20/minute Acutely Altered Mental Status Are patient's symptoms suggestive of a new infection, such as: -Pneumonia -Skin, Soft Tissue -Endocarditis -UTI -Bone, Joint Infection -Implantable Device -Acute Abdominal Infection -Wound Infection -Meningitis -Blood Stream Catheter Infection -Unknown Neurological Complaint Exam - Headache Complaint/Exam Onset: Gradual Duration: several days Symptoms Are: Still present Timing: Constant Worst Headache Ever: No Initial Severity: Mild Current Severity: Moderate Location: Diffuse Character: Reports: Dull, Throbbing, Pressure, Typical headache, Migraine Aggravating: Reports: Bright lights Alleviating: Reports: None Associated Signs and Symptoms: Reports: Nausea. Denies: Dizziness, Seizure Related History: Reports: Similar episode. Denies: Recent trauma, Remote trauma Related Surgical History: Reports: None Temporal Arteritis Risk Factors: Reports: Female, Normal Head CT Within Last 12 Months: Yes Fundoscopic Exam: Present: Normal Findings Papilledema Present: No Temporal Artery Tenderness: Present: None Sinus Tenderness: Present: None TMJ Tenderness: Present: None Glascow Coma Scale (see protocol): 15 Meningeal Signs Positive: No Pain on Passive Flexion-Positive Kernig's: Yes ROM Limited In: No Limitiations Focal Weakness: Present: None Focal Sensory Loss: Present: None Gait: Normal Nystagmus Present: No Gag Reflex Present: Yes [id number]: Normal Findings Romberg Test Positive: No Babinski Sign: Negative Right, Negative Left Heel to Toe Normal: Yes Differential Diagnoses: Migraine Review of Systems - Review Of Systems Constitutional: Reports: No symptoms Eyes: Reports: No symptoms Ears, Nose, Mouth, Throat: Reports: No symptoms Respiratory: Reports: No symptoms Cardiac: Reports: No symptoms GI: Reports: Nausea : Reports: No symptoms Musculoskeletal: Reports: No symptoms Skin: Reports: No symptoms Neurological: Reports: Headache Endocrine: Reports: No symptoms Hematologic/Lymphatic: Reports: No symptoms All Other Systems: Reviewed and Negative Past Medical History - Past Medical History Previously Healthy: No Endocrine: Reports: DM 2 (insulin-requiring tpe DM), Hypothyroid Cardiovascular: Reports: None Respiratory: Reports: None Hematological: Reports: None Gastrointestinal: Reports: None Genitourinary: Reports: None Neuro/Psych: Reports: CVA (later in visit, patient stated via written note that she has had 3 CVAs), Migraine, Depression, Bipolar Disorder ((see meds)) Musculoskeletal: Reports: None Cancer: Reports: Unknown Last Menstrual Period: hysterectomy Other Pertinent Past Medical History: KNEE,GALLBLADDER,BACK,NECK,HANDS - Surgical History General Surgical History: Reports: Cholecystectomy, Orthopedic (KNEE,BACK,NECK, HANDS) - Family History Family History: Reports: Unknown - Social History Smoking Status: Current every day smoker, Light tobacco smoker Hx Substance Use: No Alcohol Screening: None Physical Exam - Physical Exam Appearance: Well-appearing Pain Distress: Moderate Eyes: HU, EOMI, Conjunctiva clear ENT: Ears normal Neck: Supple Respiratory: Airway patent Cardiovascular: RRR GI/: Soft, Nontender, No masses, Bowel sounds normal, No Organomegaly Musculoskeletal: Normal strength Skin: Warm Neurological: Sensation intact, Alert, Oriented Psychiatric: Affect appropriate, Mood appropriate Re-Evaluation - Re-Evaluation Time of Re-Evaluation: 12:15 Status: Improved Vital Signs Stable: Yes Pain Level: 1 Appearance: NAD Lungs: Clear Skin: Warm and Dry Neuro: Alert and Oriented X3 CV: RRR Critical Care Note - Critical Care Note Total Time (mins): 0 Course - Course Vital Signs: Temp Pulse Resp BP Pulse Ox 03/28/18 11:32 97.1 F L 92 H 18 128/88 96 Departure - Departure Time of Disposition: 11:55 Disposition: HOME SELF-CARE Discharge Problem: Migraine Qualifiers: Migraine type: unspecified Status migrainosus presence: without status migrainosus Intractability: not intractable Qualified Code(s): G43.909 - Migraine, unspecified, not intractable, without status migrainosus Instructions: Migraine Headache (ED) Condition: Good Pt referred to PMD for follow-up: Yes IPMP verified?: Yes Additional Instructions: f/u wiht pcp Allergies/Adverse Reactions: Allergies ketorolac [From Toradol] Adverse Reaction (Mild, Verified 08/26/18 11:39) Vomiting codeine Adverse Reaction (Verified 03/28/18 11:39) fluoxetine HCl [From Prozac] Adverse Reaction (Verified 03/28/18 11:39) ibuprofen [From Motrin] Adverse Reaction (Verified 03/28/18 11:39) Nausea prednisone Adverse Reaction (Verified 03/28/18 11:39) Home Medications: Ambulatory Orders Metformin HCl 850 mg PO BID 03/28/18 Disposition Discussed With: Patient
[2018-03-28] MEDS ORDERED: DILAUDID 0.5 MG/0.5 ML SYRINGE IM STA (11:58)
[2018-03-28] MEDS ORDERED: PHENERGAN 25 MG/ML VIAL IM STA (11:59)
[2018-03-28] MEDS ORDERED: DILAUDID 0.5 MG/0.5 ML SYRINGE ONE (12:19)
== END 2018-03-28 12:40 | disposition home or self-care (01) ==
LOC: ED 11:31
DX: G43.909 Migraine, unspecified, not intractable, without status migrainosus (principal); F17.210 Nicotine dependence, cigarettes, uncomplicated
CPT/HCPCS: 96372; 99283

== ENCOUNTER 2018-04-20 13:41 | Emergency (ER) ==
[2018-04-20 13:53] VITALS: BP 146/90; TEMP 98.8; BMI 30.5
--- NOTE | 2018-04-20 15:53 | ED.PDOC ---
General ED Provider: Dr. THONG LEE Chief Complaint: Tooth Problem Stated Complaint: dental pain Time Seen by Physician: 13:42 (roblance from adminstration present) Mode of Arrival: Walk-In Information Source: Patient Exam Limitations: No limitations Primary Care Provider: VENESSA HSEN Nursing and Triage Documentation Reviewed and Agree: Yes Does patient meet sepsis criteria?: No If yes, has appropriate treatment been initiated?: No System Inflammatory Response Syndrome: Not Applicable Sepsis Protocol: For patient's 13 years and over: Temp is 96.8 and below OR 101 and greater Pulse >90 BPM Resp >20/minute Acutely Altered Mental Status Are patient's symptoms suggestive of a new infection, such as: -Pneumonia -Skin, Soft Tissue -Endocarditis -UTI -Bone, Joint Infection -Implantable Device -Acute Abdominal Infection -Wound Infection -Meningitis -Blood Stream Catheter Infection -Unknown EENT Complaint Exam - Dental/Oral Complaint/Exam Mechanism of Injury: No known trauma Onset/Duration: 1 day Symptoms Are: Still present Timing: Intermittent Initial Severity: Moderate Current Severity: Moderate Character: Reports: Dull Aggravating: Reports: Heat, Cold, Chewing Alleviating: Reports: None Associated Signs and Symptoms: Denies: Swelling, Discharge, Fever, Foul odor, Foul taste in mouth Related History: Reports: Similar episode Cardiac Risk Factors: Reports: None Dental/Oral Surgical History: Reports: None Tooth Findings: Present: Gross decay, Gross caries Cervical Lymphadenopathy Present: No Facial Swelling Present: No Bleeding Present: No Oropharynx Findings: Absent: Clots, Active bleeding Septal Hematoma: No Foreign Body Present: No Dysphagia Present: No Drooling Present: No Asymmetrical Tonsillar Swelling Present: No Uvula Midline: No Sandy-tonsillar Fluctuence: No Trismus Present: No Palatal Petechiae Present: No Scarlatinaform Rash Present: No Lesions: Absent: Lip, Gums, Tongue, Buccal Mucosa, Pharynx Exanthem: Absent: Lip, Gums, Tongue, Buccal Mucosa, Pharynx Vesicles: Absent: Lip, Gums, Tongue, Buccal Mucosa, Pharynx Teeth Picture: 1 - decay Differential Diagnoses: Dental Caries Review of Systems - Review Of Systems Constitutional: Reports: No symptoms Eyes: Reports: No symptoms Ears, Nose, Mouth, Throat: Reports: No symptoms Respiratory: Reports: No symptoms Cardiac: Reports: No symptoms GI: Reports: No symptoms : Reports: No symptoms Musculoskeletal: Reports: No symptoms Skin: Reports: No symptoms Neurological: Reports: No symptoms Endocrine: Reports: No symptoms Hematologic/Lymphatic: Reports: No symptoms All Other Systems: Reviewed and Negative Past Medical History - Past Medical History Previously Healthy: No Endocrine: Reports: DM 2 (insulin-requiring tpe DM), Hypothyroid Cardiovascular: Reports: None Respiratory: Reports: None Hematological: Reports: None Gastrointestinal: Reports: None Genitourinary: Reports: None Neuro/Psych: Reports: CVA (later in visit, patient stated via written note that she has had 3 CVAs), Migraine, Depression, Bipolar Disorder ((see meds)) Musculoskeletal: Reports: None Cancer: Reports: Unknown Last Menstrual Period: hysterectomy Other Pertinent Past Medical History: KNEE,GALLBLADDER,BACK,NECK,HANDS - Surgical History General Surgical History: Reports: Cholecystectomy, Orthopedic (KNEE,BACK,NECK, HANDS) - Family History Family History: Reports: Unknown - Social History Smoking Status: Current every day smoker, Light tobacco smoker Hx Substance Use: No Alcohol Screening: None Physical Exam - Physical Exam Appearance: Well-appearing, No pain distress, Well-nourished Eyes: HU, EOMI, Conjunctiva clear ENT: Ears normal, Nose normal, Oropharynx normal Respiratory: Airway patent, Breath sounds clear, Breath sounds equal, Respirations nonlabored Cardiovascular: RRR, Pulses normal, No rub, No murmur GI/: Soft, Nontender, No masses, Bowel sounds normal, No Organomegaly Musculoskeletal: Normal strength, ROM intact, No edema, No calf tenderness Skin: Warm, Dry, Normal color Neurological: Sensation intact, Motor intact, Reflexes intact, Cranial nerves intact, Alert, Oriented Psychiatric: Affect appropriate, Mood appropriate Critical Care Note - Critical Care Note Total Time (mins): 0 Course - Course Vital Signs: Temp Pulse Resp BP Pulse Ox 04/20/18 13:41 98.8 F 95 H 16 146/90 H 97 Departure - Departure Time of Disposition: 15:53 Disposition: HOME SELF-CARE Discharge Problem: Toothache Instructions: Toothache (ED) Condition: Good Pt referred to PMD for follow-up: Yes IPMP verified?: No Additional Instructions: Please call your Family Physician as soon as possible to schedule a follow-up appointment. Allergies/Adverse Reactions: Allergies ketorolac [From Toradol] Adverse Reaction (Mild, Verified 04/20/18 13:50) Vomiting codeine Adverse Reaction (Verified 04/20/18 13:50) fluoxetine HCl [From Prozac] Adverse Reaction (Verified 04/20/18 13:50) ibuprofen [From Motrin] Adverse Reaction (Verified 04/20/18 13:50) Nausea prednisone Adverse Reaction (Verified 04/20/18 13:50) Home Medications: Ambulatory Orders Metformin HCl 850 mg PO BID 03/28/18
== END 2018-04-20 16:00 | disposition home or self-care (01) ==
LOC: ED 13:41
DX: K08.89 Other specified disorders of teeth and supporting structures (principal); K02.7 Dental root caries; F17.210 Nicotine dependence, cigarettes, uncomplicated
CPT/HCPCS: 99282

== ENCOUNTER 2018-05-03 19:12 | Emergency (ER) ==
[2018-05-03 19:15] VITALS: BP 124/88; TEMP 99; BMI 30.2
--- NOTE | 2018-05-03 19:24 | ED.PDOC ---
General ED Provider: Dr. RASHID KINNEY-ER Chief Complaint: Tooth Problem Stated Complaint: my tooth is hurting Time Seen by Physician: 19:21 Mode of Arrival: Walk-In Information Source: Patient Exam Limitations: No limitations Primary Care Provider: VENESSA SHEN Nursing and Triage Documentation Reviewed and Agree: Yes Does patient meet sepsis criteria?: No System Inflammatory Response Syndrome: Not Applicable Sepsis Protocol: For patient's 13 years and over: Temp is 96.8 and below OR 101 and greater Pulse >90 BPM Resp >20/minute Acutely Altered Mental Status Are patient's symptoms suggestive of a new infection, such as: -Pneumonia -Skin, Soft Tissue -Endocarditis -UTI -Bone, Joint Infection -Implantable Device -Acute Abdominal Infection -Wound Infection -Meningitis -Blood Stream Catheter Infection -Unknown EENT Complaint Exam - Dental/Oral Complaint/Exam Mechanism of Injury: No known trauma Onset/Duration: 3 days Symptoms Are: Still present Timing: Constant Initial Severity: Mild Current Severity: Mild Location: right lower premolar Character: Reports: Dull, Aching, Throbbing Aggravating: Reports: Chewing Associated Signs and Symptoms: Reports: Swelling Tooth Findings: Present: Percussion tenderness, Gross caries Cervical Lymphadenopathy Present: No Facial Swelling Present: No Bleeding Present: No Oropharynx Findings: Absent: Clots, Active bleeding Septal Hematoma: No Foreign Body Present: No Dysphagia Present: No Drooling Present: No Asymmetrical Tonsillar Swelling Present: No Uvula Midline: Yes Sandy-tonsillar Fluctuence: No Trismus Present: No Palatal Petechiae Present: No Scarlatinaform Rash Present: No Differential Diagnoses: Dental Caries Review of Systems - Review Of Systems Constitutional: Reports: No symptoms Eyes: Reports: No symptoms Ears, Nose, Mouth, Throat: Reports: Mouth pain Respiratory: Reports: No symptoms Cardiac: Reports: No symptoms GI: Reports: No symptoms : Reports: No symptoms Musculoskeletal: Reports: No symptoms Skin: Reports: No symptoms Neurological: Reports: No symptoms Endocrine: Reports: No symptoms Hematologic/Lymphatic: Reports: No symptoms All Other Systems: Reviewed and Negative Past Medical History - Past Medical History Previously Healthy: No Endocrine: Reports: DM 2 (insulin-requiring tpe DM), Hypothyroid Cardiovascular: Reports: None Respiratory: Reports: None Hematological: Reports: None Gastrointestinal: Reports: None Genitourinary: Reports: None Neuro/Psych: Reports: CVA (later in visit, patient stated via written note that she has had 3 CVAs), Migraine, Depression, Bipolar Disorder ((see meds)) Musculoskeletal: Reports: None Cancer: Reports: Unknown Last Menstrual Period: none Other Pertinent Past Medical History: KNEE,GALLBLADDER,BACK,NECK,HANDS - Surgical History General Surgical History: Reports: Cholecystectomy, Orthopedic (KNEE,BACK,NECK, HANDS) - Family History Family History: Reports: Unknown - Social History Smoking Status: Current every day smoker, Light tobacco smoker Hx Substance Use: No Alcohol Screening: None Physical Exam - Physical Exam Appearance: Well-appearing Pain Distress: Moderate Eyes: HU, EOMI, Conjunctiva clear ENT: Ears normal Neck: Supple Respiratory: Airway patent, Breath sounds clear, Breath sounds equal, Respirations nonlabored Cardiovascular: RRR GI/: Soft, Nontender, No masses, Bowel sounds normal, No Organomegaly Musculoskeletal: Normal strength, ROM intact, No edema, No calf tenderness Skin: Warm Neurological: Sensation intact, Motor intact, Reflexes intact, Cranial nerves intact, Alert, Oriented Psychiatric: Affect appropriate, Mood appropriate Critical Care Note - Critical Care Note Total Time (mins): 0 Course - Course Vital Signs: Temp Pulse Resp BP Pulse Ox 05/03/18 19:13 99.0 F 102 H 18 124/88 97 Departure - Departure Time of Disposition: 19:23 Disposition: HOME SELF-CARE Discharge Problem: Abscess, dental Instructions: Dental Abscess (ED) Condition: Good Pt referred to PMD for follow-up: Yes IPMP verified?: No Additional Instructions: clindamycin 300mg tid x 7 days plus norco 5mg q 4hrs prn pain #10--see dentist dia Allergies/Adverse Reactions: Allergies ketorolac [From Toradol] Adverse Reaction (Mild, Verified 05/03/18 19:15) Vomiting codeine Adverse Reaction (Verified 05/03/18 19:15) fluoxetine HCl [From Prozac] Adverse Reaction (Verified 05/03/18 19:15) ibuprofen [From Motrin] Adverse Reaction (Verified 05/03/18 19:15) Nausea prednisone Adverse Reaction (Verified 05/03/18 19:15) Home Medications: Ambulatory Orders Metformin HCl 850 mg PO BID 03/28/18 Disposition Discussed With: Patient
== END 2018-05-03 19:28 | disposition home or self-care (01) ==
LOC: ED 19:12
DX: K04.7 Periapical abscess without sinus (principal); K02.7 Dental root caries; F17.210 Nicotine dependence, cigarettes, uncomplicated
CPT/HCPCS: 99282

== ENCOUNTER 2018-05-24 10:10 | Observation (INO) ==
--- NOTE | 2018-05-24 11:06 | CT ---
EXAM: CT Head HISTORY: Facial numbness COMPARISON: 04/22/2017 TECHNIQUE: CT head performed without contrast FINDINGS: There is no mass effect, midline shift, or intracranial hemmorhage. Ferreira white differenti ation is preserved. There is no extra-axial collection. The ventricles, sulci, and basal cisterns a re patent and symmetric. There is no depressed calvarial fracture. The mastoid air cells are clear. The visualized paranasal sinuses are clear. IMPRESSION: No acute intracranial abnormality.
--- NOTE | 2018-05-24 12:14 | US ---
EXAM: Carotid ultrasound HISTORY: Transient ischemic attack COMPARISON: None TECHNIQUE: Carotid ultrasound was performed using Duplex imaging with bowie scale, color, and Doppler imaging performed. FINDINGS: Right carotid: There is atherosclerotic plaque in the common carotid and bulb/internal carotid arter y. Peak systolic velocity measurement in the right internal carotid artery is 0.5 meters per second. End-diastolic velocity measurement in the right internal carotid artery is 0.2 meters per second. Right internal to common carotid artery peak systolic velocity ratio is 0.6. Flow in the right verte bral artery is antegrade. Left carotid: There is atherosclerotic plaque in the common carotid and bulb/internal carotid artery . Peak systolic velocity measurement in the left internal carotid artery is 0.7 meters per second. End-diastolic velocity measurement in the left internal carotid artery is 0.3 meters per second. Lef t internal to common carotid artery peak systolic velocity ratio measures 1.0. Flow in the left vert ebral artery is antegrade. IMPRESSION: 1. Right internal carotid: Peak systolic velocity corresponds with mild (less than 50%) stenosis. 2. Left internal carotid: Peak systolic velocity corresponds with mild (less than 50%) stenosis.
--- NOTE | 2018-05-24 12:25 | ED.PDOC ---
General ED Provider: Dr. THONG LEE Chief Complaint: Stroke Stated Complaint: Facial numbness/TIA Time Seen by Physician: 10:10 (SEEN WITH YURIY AT ALL TIMES NO NEURO DEFICITS NOTED ) Mode of Arrival: Walk-In Information Source: Patient Exam Limitations: No limitations Primary Care Provider: MELI HAYWARD Nursing and Triage Documentation Reviewed and Agree: Yes Does patient meet sepsis criteria?: No System Inflammatory Response Syndrome: Not Applicable Sepsis Protocol: For patient's 13 years and over: Temp is 96.8 and below OR 101 and greater Pulse >90 BPM Resp >20/minute Acutely Altered Mental Status Are patient's symptoms suggestive of a new infection, such as: -Pneumonia -Skin, Soft Tissue -Endocarditis -UTI -Bone, Joint Infection -Implantable Device -Acute Abdominal Infection -Wound Infection -Meningitis -Blood Stream Catheter Infection -Unknown Neurological Complaint Exam - Weakness Complaint/Exam Last Known Well: 1 DAY AGO FACIAL NUMBNESS Onset: Gradual Duration: 10 AM ARRIVED IN NO ACUTE Symptoms Are: Resolved Initial Severity: Mild Current Severity: None Aggravating: Reports: None Alleviating: Reports: None Associated Signs and Symptoms: Denies: Nausea, Vomiting, Diaphoresis, Tinnitus, Chest pain, Short of air, Palpitations, Unsteady gait, GI blood loss, Visual changes, Decreased oral intake, Change in medication, Change in diet, OTC meds, Loss of balance Related History: Similar episode Cardiac Risk Factors: Reports: Diabetes CVA Risk Factors: Reports: Diabetes Related Surgical History: Reports: None JVD Present: No Carotid Bruit Present: No Nystagmus Present: Yes Gag Reflex Present: No Meningeal Signs Positive: No Focal Weakness: Present: None Focal Sensory Loss: Present: None Gait: Normal Babinski Sign: Negative Right, Negative Left Differential Diagnoses: Other (TIA) Quality Indicators for Cardiac Chest Pain: EKG in 10min. Quality Indicators for AMI: EKG in 10min. Quality Indicator For Non-Traumatic Chest Pain/Syncope: EKG Performed Review of Systems - Review Of Systems Constitutional: Reports: No symptoms Eyes: Reports: No symptoms Ears, Nose, Mouth, Throat: Reports: No symptoms Respiratory: Reports: No symptoms Cardiac: Reports: No symptoms GI: Reports: No symptoms : Reports: No symptoms Musculoskeletal: Reports: No symptoms Skin: Reports: No symptoms Neurological: Reports: Other (FACIAL NUMBNESS ) Endocrine: Reports: No symptoms Hematologic/Lymphatic: Reports: No symptoms All Other Systems: Reviewed and Negative Past Medical History - Past Medical History Previously Healthy: No Endocrine: Reports: DM 2 (insulin-requiring tpe DM), Hypothyroid Cardiovascular: Reports: None Respiratory: Reports: None Hematological: Reports: None Gastrointestinal: Reports: None Genitourinary: Reports: None Neuro/Psych: Reports: CVA (later in visit, patient stated via written note that she has had 3 CVAs), Migraine, Depression, Bipolar Disorder ((see meds)) Musculoskeletal: Reports: None Cancer: Reports: Unknown Last Menstrual Period: none Other Pertinent Past Medical History: KNEE,GALLBLADDER,BACK,NECK,HANDS - Surgical History General Surgical History: Reports: Cholecystectomy, Orthopedic (KNEE,BACK,NECK, HANDS) - Family History Family History: Reports: Unknown - Social History Smoking Status: Current every day smoker, Light tobacco smoker Hx Substance Use: No Alcohol Screening: None Physical Exam - Physical Exam Appearance: Well-appearing, No pain distress, Well-nourished Eyes: HU, EOMI, Conjunctiva clear ENT: Ears normal, Nose normal, Oropharynx normal Respiratory: Airway patent, Breath sounds clear, Breath sounds equal, Respirations nonlabored Cardiovascular: RRR, Pulses normal, No rub, No murmur GI/: Soft, Nontender, No masses, Bowel sounds normal, No Organomegaly Musculoskeletal: Normal strength, ROM intact, No edema, No calf tenderness Skin: Warm, Dry, Normal color Neurological: Sensation intact, Motor intact, Reflexes intact, Cranial nerves intact, Alert, Oriented Psychiatric: Affect appropriate, Mood appropriate Re-Evaluation - Re-Evaluation Time of Re-Evaluation: 11:00 Status: Improved Vital Signs Stable: Yes Pain Level: 0 Appearance: NAD Lungs: Clear Skin: Warm and Dry Neuro: Alert and Oriented X3 CV: RRR Additional Comments: RCHECK NEURO HOURLY NO CVA NOTED - Re-Evaluation Time of Re-Evaluation: 12:29 Status: Improved Vital Signs Stable: Yes Pain Level: 0 Appearance: NAD Skin: Warm and Dry Neuro: Alert and Oriented X3 CV: RRR Physician Notification - Case Discussed Physician Notified: HOSPITALIST Time of Notification: 12:29 Admit To: Inpatient Critical Care Note - Critical Care Note Total Time (mins): 0 Course - Course Hematology/Chemistry: 05/24/18 10:25 05/24/18 10:25 Orders, Labs, Meds: Lab Review 05/24/18 05/24/18 05/24/18 10:25 10:25 10:25 WBC 11.72 H RBC 4.86 Hgb 13.4 Hct 39.3 MCV 80.9 L MCH 27.6 MCHC 34.1 RDW Coeff of Luanne 13.6 Plt Count 340 Immature Gran % (Auto) 0.4 Neut % (Auto) 59.5 Lymph % (Auto) 31.1 [place] % (Auto) 4.1 Eos % (Auto) 4.1 Baso % (Auto) 0.8 Immature Gran # (Auto) 0.1 Neut # (Auto) 7.0 H Lymph # (Auto) 3.6 H [place] # (Auto) 0.5 Eos # (Auto) 0.5 Baso # (Auto) 0.1 PT 9.8 INR 0.98 APTT 30.3 D-Dimer (Manual) Sodium 139.2 Potassium 3.77 Chloride 104.7 Carbon Dioxide 31.5 H Anion Gap 6.77 BUN 10.0 Creatinine 0.66 Estimated GFR (MDRD) 95.00 BUN/Creatinine Ratio 15.15 Glucose 159.6 H Calcium 9.11 Total Bilirubin 0.53 AST 26.2 ALT 18.7 Alkaline Phosphatase 67.5 Total Creatine Kinase 30.2 Troponin I < 0.012 Total Protein 8.46 H Albumin 4.44 Globulin 4.02 Albumin/Globulin Ratio 1.10 05/24/18 10:25 WBC RBC Hgb Hct MCV MCH MCHC RDW Coeff of Luanne Plt Count Immature Gran % (Auto) Neut % (Auto) Lymph % (Auto) [place] % (Auto) Eos % (Auto) Baso % (Auto) Immature Gran # (Auto) Neut # (Auto) Lymph # (Auto) [place] # (Auto) Eos # (Auto) Baso # (Auto) PT INR APTT D-Dimer (Manual) 459.93 Sodium Potassium Chloride Carbon Dioxide Anion Gap BUN Creatinine Estimated GFR (MDRD) BUN/Creatinine Ratio Glucose Calcium Total Bilirubin AST ALT Alkaline Phosphatase Total Creatine Kinase Troponin I Total Protein Albumin Globulin Albumin/Globulin Ratio Orders Category Date Time Status EKG-(ED ONLY) Stat CARDIO 05/24/18 10:26 Completed CBC W/ AUTO DIFF Stat LAB 05/24/18 10:25 Completed COMPREHENSIVE METABOLIC PANEL Stat LAB 05/24/18 10:25 Completed CREATINE KINASE Stat LAB 05/24/18 10:25 Completed D-DIMER Stat LAB 05/24/18 10:25 Completed PARTIAL THROMBOPLASTIN TIME Stat LAB 05/24/18 10:25 Completed PT WITH INR Stat LAB 05/24/18 10:25 Completed TROPONIN I Stat LAB 05/24/18 10:[address] HEAD W/O CONTRAST Stat RADS 05/24/18 10:26 Completed ULTRASOUND DOPPLER CAROTID [U/S DOPPLER CAROTID] Stat RADS 05/24/18 11:28 Completed Vital Signs: Temp Pulse Resp BP Pulse Ox 05/24/18 10:10 97.9 F 98 H 18 115/88 99 Departure - Departure Time of Disposition: 12:28 Disposition: ADMITTED INPATIENT Discharge Problem: TIA (transient ischemic attack) Instructions: Transient Ischemic Attack (ED) Condition: Good Pt referred to PMD for follow-up: Yes IPMP verified?: No Allergies/Adverse Reactions: Allergies ketorolac [From Toradol] Adverse Reaction (Mild, Verified 05/24/18 10:16) Vomiting codeine Adverse Reaction (Verified 05/24/18 10:16) fluoxetine HCl [From Prozac] Adverse Reaction (Verified 05/24/18 10:16) ibuprofen [From Motrin] Adverse Reaction (Verified 05/24/18 10:16) Nausea prednisone Adverse Reaction (Verified 05/24/18 10:16) Home Medications: Ambulatory Orders Acetaminophen [Mapap] 500 mg PO Q6H 05/24/18 Albuterol Sulfate [Ventolin Hfa] 2 puff IH Q4H 05/24/18 Atorvastatin Calcium [Lipitor] 10 mg PO BEDTIME 05/24/18 Hydroxyzine HCl [Atarax] 25 mg PO Q4-6H 05/24/18 Levothyroxine Sodium [Synthroid] 125 mcg PO DAILY 05/24/18 Metformin HCl [Glucophage] 850 mg PO BID 05/24/18 Sertraline HCl 100 mg PO DAILY 05/24/18 Trazodone HCl [Desyrel] 50 mg PO DAILY 05/24/18 Disposition Discussed With: Patient, Family
[2018-05-24] MEDS: SODIUM CHLORIDE 1,000 ML IV SCH (13:34)
[2018-05-24] MEDS: PROAIR HFA IH SCH ×3 (13:34→20:45)
[2018-05-24] MEDS: ATARAX PO SCH (13:34)
[2018-05-24 14:20] VITALS: BMI 29.9
[2018-05-24] MEDS ORDERED: ATIVAN PO STA (15:32)
[2018-05-24] MEDS ORDERED: METFORMIN HCL 850 MG PO SCH (17:30)
--- NOTE | 2018-05-24 17:36 | MRI ---
EXAM: MRI brain without contrast. TECHNIQUE: Multiplanar multisequence MRI brain was performed without contrast. COMPARISON: MRA of the head from same day and head CT from same day and brain MRI from 04/23/2017 HISTORY: Left facial numbness FINDINGS: There is no acute intervening intracranial abnormality. Specifically there is no hemorrha ge or mass or hydrocephalus or subdural or other abnormal extra-axial fluid collection. There is no diffusion restriction, chronic cortical ischemia or demyelination. There is no abnormal signal in the subarachnoid spaces to suggest altered protein content. Susceptibility weighted sequence demonstrate s no chronic micro-hemorrhages or abnormal calcifications. There is trace supratentorial chronic sma ll vessel white matter ischemia. Brain parenchyma, ventricles and sulci are otherwise normal. There is a mostly empty sella which is a normal variant. The corpus callosum demonstrates normal morp hology. There is no migrational anomaly or tonsillar ectopia. The cavernous sinuses are symmetric. No focal abnormality of the cranial nerves is present. The flow voids of the [place] are norm al with no evidence for focal stenosis, slow flow, aneurysm or vascular malformation. The dural sinu ses are widely patent. The mastoid air cells show no significant fluid. The paranasal sinuses demonstrate some membrane thic kening but no air fluid levels. The globes and orbits are intact with no evidence for mass lesion, in flammation or enlarged extraocular muscles. There are no orbital stigmata of intracranial hypertensio n. The superior ophthalmic veins are symmetric and not enlarged. There are no acute calvarial abnorma lities. IMPRESSION: 1. No acute intervening intracranial abnormality. Specifically there is no evolving ischemia or hem orrhage or mass. 2. Trace chronic small vessel ischemia in the white matter.
--- NOTE | 2018-05-24 17:51 | MRI ---
EXAM: MR angiogram of the [place] of [place] without contrast TECHNIQUE: MR angiogram of the [place] was performed without contrast with coronal and sagi ttal multiplanar MIP reconstructions. COMPARISON: Brain MRI from same day HISTORY: Left-sided facial numbness FINDINGS: Right internal carotid artery distribution: The right internal carotid artery is widely patent. The r ight M1 segment, bifurcation, M2 segments and opercular branches of the middle cerebral artery as wel l as the A1 and A2 segments of the anterior cerebral artery and their visualized branches are all wid moses patent. Left internal carotid artery distribution: The left internal carotid artery is widely patent. The lef t M1 segment, bifurcation, M2 segments and opercular branches of the middle cerebral artery as well a s the A1 and A2 segments of the anterior cerebral artery and their visualized branches are all widely patent. Anterior communicating artery: Patent Posterior communicating arteries: Will patent bilaterally. In addition there is a origin of th e second posterior cerebral artery on the left. Vertebral basilar system: The V4 segments of the vertebral arteries and the basilar artery and its br anches are widely patent. The left vertebral artery is dominant. The anterior inferior cerebellar art eries are not seen and appear to be combined with the superior cerebellar arteries which are large. There are no aneurysms or vascular malformations. Source images reveal no acute soft tissue abnormal ity. IMPRESSION: 1. No evidence for branch occlusion or focal stenosis or aneurysm. 2. 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 2. 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
[2018-05-24] MEDS ORDERED: LOVENOX SUBCUT SCH (19:30)
[2018-05-24] MEDS ORDERED: INSULIN GLARGINE HUM REC ANLOG 32 UNIT SUBCUT SCH (21:00)
[2018-05-24] MEDS ORDERED: LIPITOR PO SCH (21:00)
[2018-05-24] MEDS ORDERED: [UNRECOGNIZED DRUG - OTHER] SUBCUT SCH (21:00)
[2018-05-24] MEDS ORDERED: LANTUS SUBCUT SCH (21:00)
[2018-05-24] MEDS ORDERED: TYLENOL ONE (22:32)
[2018-05-24] MEDS ORDERED: LANTUS SUBCUT ONE (22:34)
[2018-05-25] MEDS: PROAIR HFA IH SCH ×4 (02:22→12:23)
[2018-05-25] MEDS: SODIUM CHLORIDE 1,000 ML IV SCH (03:27)
[2018-05-25] MEDS ORDERED: SYNTHROID ONE ×2 (04:42)
[2018-05-25] MEDS ORDERED: SYNTHROID PO SCH ×2 (06:30)
[2018-05-25] MEDS: DESYREL PO SCH ×2 (08:55→08:59)
[2018-05-25] MEDS ORDERED: NON-FORMULARY MEDICATION (Levothyroxine Sodium [Synthroid] 125 MCG) PO SCH (09:00)
[2018-05-25 09:58] VITALS: BP 126/76; TEMP 98.2
--- NOTE | 2018-05-25 11:50 | RS.PTINEVL ---
Subjective - Patient information Date of Evaluation: 05/25/18 Date of Arrival on Unit: 05/24/18 Admitted From:: Home ([facility]) Diagnosis: TIA Usual Living Arrangement: [facility] Living Arrangement Comments: lives at the [facility], independent with ADL's , amb etc Home Environment: House, Stairs (few), Rail Medical History: CVA/TIA, Diabetes, Arthritis (RA), Cancer (thyroid) Medical History Comments:: asthma Surgical History: Cervical Spine, Lumbar Spine, Cholecystectomy, Hysterectomy Surgical History Comments:: hand sx, knee sx Medications: see chart Subjective Information/ Patient Comments:: pt states she feels that all numbness and weakness has resolved. Hopes to be dc back to [facility] today and hoping to get an apt next week. - Level of function Prior to this admission, the patient could do the following:: Independent Selfcare, Independent ADL's, Independent Ambulation Current Level of Function: Independent Current Equipment Used at Home: none Pain Assessement - Location lumbar Description: Aching Intensity: 2 Interventions - Objective Patient Orientation: Person, Place, Time, Situation Current Interventions: IV's Range of Motion - ROM Right Upper Extremity AROM: WFL's Left Upper Extremity AROM: WFL's Right Lower Extremity AROM: WFL's Left Lower Extremity AROM: WFL's Muscle Strength - Muscle Strength Right Upper Extremity Strength: Mild Weakness (R shld flex 4/5, elbow flex/ext 4 +/5 power shovel operator strength 52#) Left Upper Extremity Strength: Mild Weakness (L shld flex 4-/5, elbow flex/ext 4 +/5, power shovel operator strength 50#) Right Lower Extremity Strength: Mild Weakness (hip flex/ext 4+/5, knee flex/ext 4+/5, ankle DF/PF 4+/5) Left Lower Extremity Strength: Mild Weakness (hip flex 4+/5, knee flex/ext 4+/5 , ankle DF/PF 4+/5) Sensation - Sensation Right Upper Extremity Sensation: Intact/Normal Left Upper Extremity Sensation: Intact/Normal Right Lower Extremity Sensation: Intact/Normal Left Lower Extremity Sensation: Intact/Normal Palpation Palpation Findings: Tenderness Comments:: lumbar spine Balance - Sitting Balance and Reactions Static Sitting Balance: Normal Dynamic Sitting Balance: Normal - Standing Balance and Reactions Static Standing Balance: Good Dynamic Standing Balance: Good Functional Mobility - Bed Mobility Rolling R/L: Independent Scooting: Independent Supine to Sit: Independent Sit to Supine: Independent - Transfers Sit to Stand: Supervision Stand to Sit: Supervision - Safety Awareness Safety Awareness: Good TERE INDEX SCORE: n/a Ambulation - Ambulation Assistive Device Used: No Assistive Device Orthotic/Prosthetic Device: No Distance: 110ft Assistance needed with Ambulation: Supervision, CGA Ambulation Comments: pt amb with slight flexed posture and decreased step length Factors Affecting Ambulation: Weakness Treatment time - Time with patient Length of Evaluation: 18 Total treatment time: 25 Patient Education - Education Patient Education: Education of Plan of Care Teaching Recipient: Patient Teaching Methods: Discussion (discussion regarding safety) Assessment - Assessment Problem List:: Decreased level of function, Cognitive status limits abilities Rehab Potential: Good Further Therapy Indicated?: No Candidate for Swing Bed for Therapy Services?: no pt is obs at this time Evaluation Complexity: HISTORY: Low, EXAM OF BODY SYSTEMS: Low, CLINICAL PRESENTATION: Low, CLINICAL DECISION MAKING: Low Plan Other:: pt does not require skilled PT at this time Frequency of Treatment: One time treatment Duration of Treatment: One Time Treatment Anticipated Discharge Destination: Home Treatment Diagnosis (ICD 10 Codes): TIA Has the Physician been added for Co-signature?: Yes
[2018-05-25] MEDS: ATARAX PO SCH (12:23)
[2018-05-25] MEDS ORDERED: LOVENOX SUBCUT SCH (21:00)
[2018-05-25] MEDS ORDERED: DESYREL PO SCH (21:00)
[2018-05-25] MEDS ORDERED: LANTUS SUBCUT SCH (21:00)
--- NOTE | 2018-06-07 15:57 | SSS ---
DATE OF SERVICE: Admitted 05/24/18 and Discharged 05/25/18 SOURCE OF HISTORY: Emergency room notes and patient. CHIEF COMPLAINT: Numbness left face, lips and left side of the body. HISTORY OF PRESENT ILLNESS: The patient was seen on the day admission. The patient had told me that she woke up 9:40 in the morning on the day of presentation to the emergency room with sensation of numbness of the side of the face, lips and whole left side of the body without drooling. She woke earlier at 8 o'clock in the morning and she did not have any problems. The patient presented to the ER at [facility] and was evaluated by the ER MD. Physical examination revealed no neurological deficits, as far as the notes are concerned. The patient had a CT scan of the head showing no acute intracranial abnormalities, plus studies of the carotids. No stenosis that is higher than 50 %. The patient was admitted because of the persistent numbness of the hand. PAST HISTORY: The patient had temporomandibular joint disfunction, rheumatoid arthritis involving knees and back, not likely rheumatoid. History of diabetes mellitus, carcinoma of the thyroid, asthma, migraines, CVA 2015, surgery to the knee, gallbladder, back, neck, hands and hysterectomy. The patient had history of depression, as well as anxiety. FAMILY HISTORY: Brother had malignancy, as well as father. Mother had lung and breast. Grandmother also had malignancy, as well as diabetes in the family. SOCIAL HISTORY: The patient is with three children. Of note, she was admitted to this hospital 04/22/2017 because of substance overdose and inability to talk. Drug screen during that time was positive for benzo. The patient had a CT scan of the head without contrast showing no acute intracranial process. MRI without contrast showed no intracranial mass, hemorrhage or acute cerebral infarct. Mostly empty sella. The patient's diagnosis then was aphasia with spontaneous resolution, plus benzodiazepine on urine drug screen. History of previous CVA, history of substance abuse, history of malignancy or throat, thyroid. Diabetes mellitus. MEDICATIONS: Prior to this admission Trazodone 50 mg daily Lipitor 10 mg near bedtime Levothyroxine 125 mcg daily Atrax 25 mg every 4-6 hours Tylenol 500 mg every 6 hours Insulin Glargine/Basaglar 32 units at bedtime Albuterol Sulfate two puffs every 4 hours Zoloft 100 mg daily ALLERGIES: Toradol, Codeine, Fluoxetine, Ibuprofen and Prednisone. REVIEW OF SYSTEMS: CONSTITUTIONAL: The patient had no fever and no chills. Complaining of some left sided weakness and numbness. Denies any slurred speech. REEL SLITTER: The patient is alert and oriented times four with movement of both upper and lower extremities. Complaining of some numbness on the left side of the body. That more or less has resolved, except the hand. She denied any ataxia or seizure disorder or syncopal episode. VISUAL: Denies any blurred vision, double vision or loss of vision. AUDITORY: Hearing is adequate. No tinnitus. No pain or drainage. RESPIRATORY: The patient has no cough and no shortness of breath and no history of hemoptysis. CARDIOVASCULAR: Denies any chest pain. GI: Denies any nausea, anorexia or dysphagia or abdominal pain or change in bowel habits or blood in the stool. : Denies any pain on urination, as well as frequency or urgency. MUSCULOSKELETAL: The patient had been complaining of back pain, as well as knee pain. INTEGUMENT: No rash or pruritus. ENDOCRINE: The patient has diabetes mellitus, but no polyuria or polydipsia. HEMATOLOGY: No history of prolonged bleeding or any spontaneous bleeding. PSYCHIATRIC: Affect appears to be normal. This patient had history of depression, as well as anxiety. PHYSICAL EXAMINATION: GENERAL/APPEARANCE/VITALS: The patient at the time of examination was alert and oriented times four, not dyspneic, nor tachypneic. She was cooperative on the day of her admission. Speech was clear. She denies any headaches or visual disturbances. VITAL SIGNS: On admission, showed a temperature of 97.9, pulse 98, blood pressure 115/88, respiratory rate 18, oxygen saturation 99 at room air. 164 pounds, 3.9 ounces, 5'2", BMI 30.0. HEENT: Head is unremarkable. Scalp with no active dermatitis. Face symmetrical and equal with no weakness. There was no demonstrable facial abnormalities when biting her teeth. Pupils are equal and reactive to light about 3 mm in size. Conjunctivae not pale, sclera not icteric. Speech is good and legible. NECK: No masses, no bruit. CHEST: Symmetrical and equal with good expansion with no remarkable tenderness. LUNGS: Breath sounds are heard in both sides. No rale or wheezing. HEART: Audible and regular with good tones. No murmurs. ABDOMEN: Soft with no remarkable tenderness. No guarding. Bowel sounds are active. EXTERNAL GENITALIA: Not examined. PELVIC: Not performed. RECTAL: Not performed. LOWER EXTREMITIES: Symmetrical and equal with no significant edema. Both lower extremities are of equal length. Dorsal flexion and flexion of the foot is symmetrical and equal. Strength on both lower extremities are equal. UPPER EXREMITIES: Hand optimization engineer with questionable weakness of left upper extremity. ASSESSMENT: 1. SENSATION OF NUMBNESS OF FACE, LEFT, LIPS AND LEFT SIDE OF THE BODY, ETIOLOGY UNDETERMINED. 2. HISTORY OF DIABETES MELLITUS ON INSULIN 3. HISTORY OF THYROID CARCINOMA 4. HISTORY OF CVA WITH NO RESIDUAL 5. HISTORY OF ASTHMA 6. HISTORY OF MIGRAINE HEADACHES 7. HISTORY OF DRUG INGESTION 8. HISTORY OF SURGICAL INTERVENTIONS OF KNEE, GALLBLADDER, BACK, NECK, HANDS AND HYSTERECTOMY. 9. CHRONIC TOBACCO USE AND ABUSE, PERSISTENT Old/present records reviewed Office records reviewed. HOSPITAL COURSE: This patient while in the hospital remained stable. Her temperature had remained normal and her vital signs also had remained normal and her oximetry showed a 99 to 100 percent oxygen saturation. Initial labs in the emergency room showed mild leukocytosis 11,720, MCV is slightly lower at 80.9, MCH 27.6. Repeat examination revealed the MCV 82.1 and MCH 27.8. The hemoglobin and hematocrit has decreased to below normal, probably from hydration. Coagulation profile normal. D-Dimer below 500. The hemoglobin A1C on admission was 8.86. The chemistry is essentially unchanged and the blood sugar went up to 192 from 159.6. Ck and Troponin remained normal. TSH normal 1.840. The patient's MRI and MRA were unremarkable. Physical Therapy evaluation was requested and done. Motor strength evaluation right upper and left upper extremities were the same. Right lower extremity and left lower extremity also were the same. Sensation was intact in both upper and lower extremities. Static balance normal. Dynamic sitting balance normal. Standing balance static and dynamic were also good. The patient at the time of discharge was alert, ambulatory with movement of all extremities. She denied any headaches or any numbness. Hand optimization engineer is about the same. The lungs are clear. Heart is normal sinus rhythm. The patient on discharge was advised to continue her previous medications prior to this admission. No added medications for now. The patient at the time of discharge was advised to see her primary care provider, Susan Mcqueen. She claimed that her family physician was Dr. Wm Cm and I told her to see him also. She should get in touch with them today and make an appointment. If she were to have any further recurrences of this problem, that she should come back to the emergency room preferably to a facility with a neurologist. FINAL DIAGNOSIS: 1. TRANSIENT ISCHEMIC ATTACK, MAYBE SECONDARY TO VASOSPASM 2. DIABETES MELLITUS UNCONTROLLED 3. HISTORY OF THYROID CARCINOMA 4. CHRONIC TOBACCO USE AND ABUSE, PERSISTENT 5. HISTORY OF ASTHMA 6. HISTORY OF MIGRAINE 7. HISTORY OF CVA 2015, NO OBVIOUS RESIDUAL 8. HISTORY OF MULTIPLE SURGERIES INVOLVING KNEE, GALLBLADDER, BACK, NECK, HANDS AND UTERUS. MTDD
== END 2018-05-25 14:05 | disposition home or self-care (01) ==
LOC: ED 10:10 → INTOOBSV 12:33 → MEDSURG B 12:33
PROVIDERS: ADMIT General Practice; ATTEND General Practice
DX: I63.9 Cerebral infarction, unspecified (principal); R20.0 Anesthesia of skin; E11.9 Type 2 diabetes mellitus without complications; Z72.0 Tobacco use
CPT/HCPCS: 36415; 80053; 82550; 82962; 83036; 84443; 84484; 85025; 85379; 85610; 85730; 93005; 93010; 96360; 96361; 96372; 99284

== ENCOUNTER 2018-05-30 21:13 | Emergency (ER) ==
[2018-05-30 21:20] VITALS: BP 154/102; TEMP 98.5; BMI 29.2
[2018-05-30] MEDS ORDERED: ZOFRAN 4 MG/2 ML IVP STA (21:37)
[2018-05-30] MEDS ORDERED: SODIUM CHLORIDE 1,000 ML IV STA (21:37)
--- NOTE | 2018-05-30 21:39 | ED.PDOC ---
General ED Provider: Dr. YESIKA VO Chief Complaint: Nausea/Vomiting Stated Complaint: Patient is a 48 year old female who comes to the ER with Nausea, vomiting and Diarrhea x 4 today. Also complains of chills. Time Seen by Physician: 21:38 Mode of Arrival: Walk-In Information Source: Patient Primary Care Provider: MELI HAYWARD Nursing and Triage Documentation Reviewed and Agree: Yes Does patient meet sepsis criteria?: No System Inflammatory Response Syndrome: Not Applicable Sepsis Protocol: For patient's 13 years and over: Temp is 96.8 and below OR 101 and greater Pulse >90 BPM Resp >20/minute Acutely Altered Mental Status Are patient's symptoms suggestive of a new infection, such as: -Pneumonia -Skin, Soft Tissue -Endocarditis -UTI -Bone, Joint Infection -Implantable Device -Acute Abdominal Infection -Wound Infection -Meningitis -Blood Stream Catheter Infection -Unknown GI Complaint Exam - Vomiting/Diarrhea Complaint/Exam Onset/Duration: one day Symptoms Are: Still present Episodes of Vomiting over last 24 Hours: 4 Episodes of Diarrhea Over Last 24 Hours: 4 Initial Severity: Moderate Current Severity: Moderate Character of Vomiting: Reports: Non-bilious Character of Diarrhea: Reports: Watery Aggravating: Reports: Food Alleviating: Reports: NPO Associated Signs and Symptoms: Denies: Dizziness, Light-headedness, Melena, Hematemesis, Fever, Abdominal pain, Cramping Related Surgical History: Reports: Cholecystectomy Abdominal Findings: Present: None Kussmaul Respirations Present: No Differential Diagnoses: Viral Gastroenteritis Review of Systems - Review Of Systems Constitutional: Reports: No symptoms Eyes: Reports: No symptoms Ears, Nose, Mouth, Throat: Reports: No symptoms Respiratory: Reports: No symptoms Cardiac: Reports: No symptoms GI: Reports: Diarrhea, Nausea, Poor appetite, Vomiting : Reports: No symptoms Musculoskeletal: Reports: Back pain (Radiating to the left lower extremity.) Skin: Reports: No symptoms Neurological: Reports: Anxiety Endocrine: Reports: No symptoms Hematologic/Lymphatic: Reports: No symptoms All Other Systems: Reviewed and Negative Past Medical History - Past Medical History Previously Healthy: No Endocrine: Reports: DM 2 (insulin-requiring tpe DM), Hypothyroid Cardiovascular: Reports: None Respiratory: Reports: None Hematological: Reports: None Gastrointestinal: Reports: None Genitourinary: Reports: None Neuro/Psych: Reports: CVA (later in visit, patient stated via written note that she has had 3 CVAs), Migraine, Depression, Bipolar Disorder ((see meds)) Musculoskeletal: Reports: Back Pain Cancer: Reports: Unknown Last Menstrual Period: na Other Pertinent Past Medical History: KNEE,GALLBLADDER,BACK,NECK,HANDS - Surgical History General Surgical History: Reports: Hysterectomy, Cholecystectomy, Orthopedic ( KNEE,BACK,NECK,HANDS) - Family History Family History: Reports: Unknown - Social History Smoking Status: Current some day smoker Hx Substance Use: No Alcohol Screening: None - Immunizations Tetanus Shot up to Date: Yes Physical Exam - Physical Exam Appearance: Well-appearing, No pain distress, Well-nourished Eyes: HU, EOMI, Conjunctiva clear ENT: Ears normal, Nose normal, Oropharynx normal Respiratory: Airway patent, Breath sounds clear, Breath sounds equal, Respirations nonlabored Cardiovascular: RRR, Pulses normal, No rub, No murmur GI/: Soft, Nontender, No masses, No Organomegaly, Bowel sounds hyperactive Musculoskeletal: Normal strength, No edema, No calf tenderness, Limited ROM (of the back and the left lower extremity ) Skin: Warm, Dry, Normal color Neurological: Sensation intact, Motor intact, Reflexes intact, Cranial nerves intact, Alert, Oriented Psychiatric: Anxious Re-Evaluation - Re-Evaluation Time of Re-Evaluation: 22:00 Status: Improved Vital Signs Stable: Yes Critical Care Note - Critical Care Note Total Time (mins): 0 Course - Course Hematology/Chemistry: 05/30/18 21:40 05/30/18 21:40 Orders, Labs, Meds: Lab Review 05/30/18 05/30/18 05/30/18 21:40 21:40 22:48 WBC 13.43 H RBC 4.34 Hgb 12.5 Hct 34.9 L MCV 80.4 L MCH 28.8 MCHC 35.8 H RDW Coeff of Luanne 13.5 Plt Count 304 Immature Gran % (Auto) 0.4 Neut % (Auto) 52.1 Lymph % (Auto) 37.0 [place] % (Auto) 5.4 Eos % (Auto) 4.4 Baso % (Auto) 0.7 Immature Gran # (Auto) 0.1 Neut # (Auto) 7.0 H Lymph # (Auto) 5.0 H [place] # (Auto) 0.7 Eos # (Auto) 0.6 Baso # (Auto) 0.1 Sodium 138.9 Potassium 3.38 L Chloride 105.6 Carbon Dioxide 25.9 Anion Gap 10.78 BUN 10.3 Creatinine 0.57 L Estimated GFR (MDRD) 112.00 BUN/Creatinine Ratio 18.07 Glucose 187.8 H Calcium 8.81 Total Bilirubin 0.34 AST 29.1 ALT 23.4 Alkaline Phosphatase 71.2 Total Protein 8.25 H Albumin 4.33 Globulin 3.92 Albumin/Globulin Ratio 1.10 Amylase 59.8 Lipase 93.8 Urine Color Yellow Urine Clarity Clear Urine pH 6.0 Ur Specific [place] 1.010 Urine Protein Negative Urine Glucose (UA) Negative Urine Ketones Negative Urine Blood Negative Urine Nitrite Negative Urine Bilirubin Negative Urine Urobilinogen 0.2 Ur Leukocyte Esterase Negative Orders Category Date Time Status AMYLASE Stat LAB 05/30/18 21:40 Completed CBC W/ AUTO DIFF Stat LAB 05/30/18 21:40 Completed COMPREHENSIVE METABOLIC PANEL Stat LAB 05/30/18 21:40 Completed LIPASE Stat LAB 05/30/18 21:40 Completed URINALYSIS C & S IF INDICATED Stat LAB 05/30/18 22:48 Completed Morphine Sulfate [Morphine 2 mg/ml Syringe] MEDS 05/30/18 21:45 Discontinued 4 mg IVP ONCE STA Ondansetron HCl/Pf [Zofran 4 mg/2 ml] MEDS 05/30/18 21:54 Discontinued 4 mg .ROUTE .STK-MED ONE Ondansetron HCl/Pf [Zofran 4 mg/2 ml] MEDS 05/30/18 21:37 Discontinued 4 mg IVP ONCE STA Sodium Chloride 0.9% [Sodium Chloride] 1,000 ml MEDS 05/30/18 21:37 Discontinued IV BOLUS Medications Discontinued Medications Generic Name Dose Route Start Last Admin Trade Name Freq PRN Reason Stop Dose Admin Sodium Chloride 1,000 mls @ 1,000 mls/hr 05/30/18 21:37 05/30/18 22:03 Sodium Chloride IV 05/30/18 22:36 1,000 mls/hr BOLUS STA Administration Morphine Sulfate 4 mg 05/30/18 21:45 05/30/18 21:57 Morphine 2 Mg/Ml Syringe IVP 05/30/18 21:46 4 mg ONCE STA Administration Ondansetron HCl 4 mg 05/30/18 21:37 05/30/18 21:57 Zofran 4 Mg/2 Ml IVP 05/30/18 21:38 4 mg ONCE STA Administration Vital Signs: Temp Pulse Resp BP Pulse Ox 05/30/18 21:14 98.5 F 102 H 16 154/102 H 98 Departure - Departure Time of Disposition: 22:15 Disposition: HOME SELF-CARE Discharge Problem: Gastroenteritis Back pain Qualifiers: Back pain location: low back pain Chronicity: acute Back pain laterality: left Sciatica presence: with sciatica Sciatica laterality: sciatica of left side Qualified Code(s): M54.42 - Lumbago with sciatica, left side Instructions: Gastroenteritis (ED), Low Back Strain (ED) Condition: Stable Pt referred to PMD for follow-up: Yes IPMP verified?: No Additional Instructions: Push fluids Follow up with PCP in 3 days Take Medications as prescribed Prescriptions: Hydrocodone Bit/Acetaminophen [Paradox 5-325] 1 each PO Q6HR PRN #15 tablet PRN Reason: severe pain Ondansetron HCl [Zofran Tab] 4 mg PO Q8H PRN #14 tablet PRN Reason: Nausea / Vomiting Allergies/Adverse Reactions: Allergies ketorolac [From Toradol] Adverse Reaction (Mild, Verified 05/30/18 21:22) Vomiting caused epigastric pain as stated by Patient codeine Adverse Reaction (Verified 05/30/18 21:22) caused epigastric pain and hallucinations as stated by Patient fluoxetine HCl [From Prozac] Adverse Reaction (Verified 05/30/18 21:22) ibuprofen [From Motrin] Adverse Reaction (Verified 05/30/18 21:22) Nausea caused epigastric pain as stated by Patient prednisone Adverse Reaction (Verified 05/30/18 21:22) caused hallucinations as stated by Patient Home Medications: Ambulatory Orders Acetaminophen [Mapap] 500 mg PO Q6H 05/24/18 Albuterol Sulfate [Ventolin Hfa] 2 puff IH Q4H 05/24/18 Atorvastatin Calcium [Lipitor] 10 mg PO BEDTIME 05/24/18 Hydroxyzine HCl [Atarax] 25 mg PO Q4-6H 05/24/18 Insulin Glargine,Hum.rec.anlog [Basaglar Kwikpen U-100] 32 units SUBCUT BEDTIME 05/24/18 Levothyroxine Sodium [Synthroid] 125 mcg PO DAILY 05/24/18 Sertraline HCl 100 mg PO DAILY 05/24/18 Trazodone HCl [Desyrel] 50 mg PO DAILY 05/24/18 Hydrocodone Bit/Acetaminophen [Paradox 5-325] 1 each PO Q6HR PRN #15 tablet Ondansetron HCl [Zofran Tab] 4 mg PO Q8H PRN #14 tablet 05/30/18 Disposition Discussed With: Patient, Family
[2018-05-30] MEDS ORDERED: MORPHINE 2 MG/ML SYRINGE IVP STA (21:45)
[2018-05-30] MEDS ORDERED: ZOFRAN 4 MG/2 ML ONE (21:54)
== END 2018-05-30 23:19 | disposition home or self-care (01) ==
LOC: ED 21:13
DX: K52.9 Noninfective gastroenteritis and colitis, unspecified (principal); M54.42 Lumbago with sciatica, left side; E11.9 Type 2 diabetes mellitus without complications; E03.9 Hypothyroidism, unspecified; Z86.73 Personal history of transient ischemic attack (TIA), and cerebral infarction without residual deficits; F17.210 Nicotine dependence, cigarettes, uncomplicated; Z79.899 Other long term (current) drug therapy; Z79.4 Long term (current) use of insulin
CPT/HCPCS: 36415; 80053; 81001; 82150; 82962; 83690; 85025; 96361; 96374; 96375; 99283

== ENCOUNTER 2018-07-25 21:51 | Emergency (ER) | payer OTHER ==
[2018-07-25 22:00] VITALS: TEMP 99.2; BMI 30.7
--- NOTE | 2018-07-25 22:14 | ED.PDOC ---
General ED Provider: Dr. RASHID IVERSON MD Chief Complaint: Back Pain Stated Complaint: lower back pain Time Seen by Physician: 22:15 Mode of Arrival: Walk-In Information Source: Patient Exam Limitations: No limitations Primary Care Provider: MELI HAYWARD Nursing and Triage Documentation Reviewed and Agree: Yes Does patient meet sepsis criteria?: No If yes, has appropriate treatment been initiated?: Yes System Inflammatory Response Syndrome: Not Applicable Sepsis Protocol: For patient's 13 years and over: Temp is 96.8 and below OR 101 and greater Pulse >90 BPM Resp >20/minute Acutely Altered Mental Status Are patient's symptoms suggestive of a new infection, such as: -Pneumonia -Skin, Soft Tissue -Endocarditis -UTI -Bone, Joint Infection -Implantable Device -Acute Abdominal Infection -Wound Infection -Meningitis -Blood Stream Catheter Infection -Unknown Musculoskeletal Complaint Exam - Back Pain Complaint/Exam Mechanism of Injury: Reports: Other (moving today) Symptoms Are: Still present Timing: Constant Episodes Lasting: Hours Initial Severity: Mild Current Severity: Moderate Location: Reports: Discrete Character: Reports: Aching Aggravating: Reports: Lifting, Bending Alleviating: Reports: Rest, Position Related Surgical History: Reports: Back Surgery Focal Tenderness: Yes Paraspinal Muscle Tenderness: No Paraspinal Muscle Spasm: Yes SLR Test: Left Positive, Left Negative Hip Motion Testing Pain: Left Positive, Left Negative Focal Weakness: Present: None Focal Sensory Loss: Present: None Gait: Present: Normal Differential Diagnoses: Strain, Sprain Review of Systems - Review Of Systems Constitutional: Reports: No symptoms Eyes: Reports: No symptoms Ears, Nose, Mouth, Throat: Reports: No symptoms Respiratory: Reports: No symptoms Cardiac: Reports: No symptoms GI: Reports: No symptoms : Reports: No symptoms Musculoskeletal: Reports: Muscle pain Skin: Reports: No symptoms Neurological: Reports: No symptoms Endocrine: Reports: No symptoms Hematologic/Lymphatic: Reports: No symptoms All Other Systems: Reviewed and Negative Past Medical History - Past Medical History Previously Healthy: No Endocrine: Reports: DM 2 (insulin-requiring tpe DM), Hypothyroid Cardiovascular: Reports: None Respiratory: Reports: None Hematological: Reports: None Gastrointestinal: Reports: None Genitourinary: Reports: None Neuro/Psych: Reports: CVA (later in visit, patient stated via written note that she has had 3 CVAs), Migraine, Depression, Bipolar Disorder ((see meds)) Musculoskeletal: Reports: Back Pain Cancer: Reports: Unknown Last Menstrual Period: PT HAS HAD A HYSTERECTOMY Other Pertinent Past Medical History: KNEE,GALLBLADDER,BACK,NECK,HANDS - Surgical History General Surgical History: Reports: Hysterectomy, Cholecystectomy, Orthopedic ( KNEE,BACK,NECK,HANDS) - Family History Family History: Reports: Unknown - Social History Smoking Status: Current every day smoker, Light tobacco smoker Hx Substance Use: No Alcohol Screening: None - Immunizations Tetanus Shot up to Date: Yes Physical Exam - Physical Exam Appearance: Obese Ill-appearing: None Pain Distress: Moderate Eyes: HU, EOMI, Conjunctiva clear ENT: Ears normal, Nose normal, Oropharynx normal Respiratory: Airway patent, Breath sounds clear, Breath sounds equal, Respirations nonlabored Cardiovascular: RRR, Pulses normal, No rub, No murmur GI/: Soft, Nontender, No masses, Bowel sounds normal, No Organomegaly Musculoskeletal: Limited ROM, Limited strength Skin: Warm, Dry, Normal color Neurological: Sensation intact, Motor intact, Reflexes intact, Cranial nerves intact, Alert, Oriented Psychiatric: Anxious Critical Care Note - Critical Care Note Total Time (mins): 0 Course - Course Orders, Labs, Meds: Orders Category Date Time Status Cyclobenzaprine HCl [Flexeril] MEDS 07/25/18 22:17 Stat 10 mg PO ONCE STA Medications Generic Name Dose Route Start Last Admin Trade Name Chucky PRN Reason Stop Dose Admin Cyclobenzaprine HCl 10 mg 07/25/18 22:17 Flexeril PO 07/25/18 22:18 ONCE STA Vital Signs: Temp Pulse Resp BP Pulse Ox 07/25/18 21:52 99.2 F 100 H 18 161/103 H 99 Departure - Departure Time of Disposition: 22:22 Disposition: HOME SELF-CARE Discharge Problem: Low back pain Condition: Fair Pt referred to PMD for follow-up: Yes IPMP verified?: No Prescriptions: Cyclobenzaprine HCl [Flexeril] 10 mg PO BID 7 Days #14 tablet NS Allergies/Adverse Reactions: Allergies ketorolac [From Toradol] Adverse Reaction (Mild, Verified 07/25/18 22:00) Vomiting caused epigastric pain as stated by Patient codeine Adverse Reaction (Verified 07/25/18 22:00) caused epigastric pain and hallucinations as stated by Patient fluoxetine HCl [From Prozac] Adverse Reaction (Verified 07/25/18 22:00) ibuprofen [From Motrin] Adverse Reaction (Verified 07/25/18 22:00) Nausea caused epigastric pain as stated by Patient prednisone Adverse Reaction (Verified 07/25/18 22:00) caused hallucinations as stated by Patient Home Medications: Ambulatory Orders Acetaminophen [Mapap] 500 mg PO Q6H PRN 05/24/18 Albuterol Sulfate [Ventolin Hfa] 2 puff IH Q4H PRN 05/24/18 Atorvastatin Calcium [Lipitor] 10 mg PO BEDTIME 05/24/18 Hydroxyzine HCl [Atarax] 25 mg PO Q4-6H PRN 05/24/18 Insulin Glargine,Hum.rec.anlog [Basaglar Kwikpen U-100] 32 units SUBCUT BEDTIME 05/24/18 Levothyroxine Sodium [Synthroid] 125 mcg PO DAILY 05/24/18 Sertraline HCl 100 mg PO DAILY 05/24/18 Cyclobenzaprine HCl [Flexeril] 10 mg PO BID 7 Days #14 tablet NS 07/25/18 Quetiapine Fumarate [Seroquel] 100 mg PO BEDTIME 07/25/18 Transfer Form Completed: No Disposition Discussed With: Patient, Family (pt allergic to all pain meds, will try muscle relaxers)
[2018-07-25] MEDS ORDERED: FLEXERIL PO STA (22:17)
[2018-07-25 22:26] VITALS: BP 126/88
== END 2018-07-25 22:40 | disposition home or self-care (01) ==
LOC: ED 21:51
DX: M54.5 Low back pain (principal); F17.210 Nicotine dependence, cigarettes, uncomplicated
CPT/HCPCS: 99282

== ENCOUNTER 2018-08-12 05:25 | Emergency (ER) ==
[2018-08-12 05:33] VITALS: BP 127/84; TEMP 98.5; BMI 29.2
--- NOTE | 2018-08-12 05:40 | ED.PDOC ---
General ED Provider: Dr. YESIKA VO Chief Complaint: Tooth Problem Stated Complaint: Patient is a 48 year old female who comes to the ER with Dental pain located on the left lower molar for 2-3 days . Already has an Apt with Dr. Mccracken in September Time Seen by Physician: 05:38 Mode of Arrival: Walk-In Information Source: Patient Exam Limitations: No limitations Primary Care Provider: MELI HAYWARD Nursing and Triage Documentation Reviewed and Agree: Yes Does patient meet sepsis criteria?: No System Inflammatory Response Syndrome: Not Applicable Sepsis Protocol: For patient's 13 years and over: Temp is 96.8 and below OR 101 and greater Pulse >90 BPM Resp >20/minute Acutely Altered Mental Status Are patient's symptoms suggestive of a new infection, such as: -Pneumonia -Skin, Soft Tissue -Endocarditis -UTI -Bone, Joint Infection -Implantable Device -Acute Abdominal Infection -Wound Infection -Meningitis -Blood Stream Catheter Infection -Unknown EENT Complaint Exam - Dental/Oral Complaint/Exam Mechanism of Injury: No known trauma Onset/Duration: 3 days Symptoms Are: Still present Timing: Constant Initial Severity: Moderate Current Severity: Severe Location: left lower molar ( previously had dental filling on this tooth) Character: Reports: Sharp Aggravating: Reports: Heat, Cold, Chewing, Exertion Alleviating: Reports: None Associated Signs and Symptoms: Reports: Swelling (mild ). Denies: Discharge, Fever, Foul odor, Foul taste in mouth Related History: Reports: Similar episode Cardiac Risk Factors: Reports: None Dental/Oral Surgical History: Reports: None Tooth Findings: Present: Percussion tenderness Cervical Lymphadenopathy Present: No Facial Swelling Present: Yes (mild ) Bleeding Present: No Oropharynx Findings: Absent: Clots, Active bleeding Septal Hematoma: No Foreign Body Present: No Dysphagia Present: No Drooling Present: No Asymmetrical Tonsillar Swelling Present: No Uvula Midline: No Sandy-tonsillar Fluctuence: No Trismus Present: No Palatal Petechiae Present: No Scarlatinaform Rash Present: No Lesions: Absent: Lip, Gums, Tongue, Buccal Mucosa, Pharynx Exanthem: Absent: Lip, Gums, Tongue, Buccal Mucosa, Pharynx Vesicles: Absent: Lip, Gums, Tongue, Buccal Mucosa, Pharynx Teeth Picture: 1 - mild tenderness, previous filling Differential Diagnoses: Dental Caries Review of Systems - Review Of Systems Constitutional: Reports: No symptoms Eyes: Reports: No symptoms Ears, Nose, Mouth, Throat: Denies: Ear pain, Ear discharge, Nose pain Respiratory: Reports: No symptoms Cardiac: Reports: No symptoms GI: Reports: No symptoms : Reports: No symptoms Musculoskeletal: Reports: No symptoms Skin: Reports: No symptoms Neurological: Reports: No symptoms Endocrine: Reports: No symptoms Hematologic/Lymphatic: Reports: No symptoms All Other Systems: Reviewed and Negative Past Medical History - Past Medical History Previously Healthy: No Endocrine: Reports: DM 2 (insulin-requiring tpe DM), Hypothyroid Cardiovascular: Reports: None Respiratory: Reports: None Hematological: Reports: None Gastrointestinal: Reports: None Genitourinary: Reports: None Neuro/Psych: Reports: CVA (later in visit, patient stated via written note that she has had 3 CVAs), Migraine, Depression, Bipolar Disorder ((see meds)) Musculoskeletal: Reports: Back Pain Cancer: Reports: Unknown Last Menstrual Period: PTHAS HAD A HYSTERECTOMY Other Pertinent Past Medical History: KNEE,GALLBLADDER,BACK,NECK,HANDS - Surgical History General Surgical History: Reports: Hysterectomy, Cholecystectomy, Orthopedic ( KNEE,BACK,NECK,HANDS) - Family History Family History: Reports: Unknown - Social History Smoking Status: Current every day smoker, Light tobacco smoker Hx Substance Use: No Alcohol Screening: None - Immunizations Tetanus Shot up to Date: Yes Physical Exam - Physical Exam Appearance: Obese Ill-appearing: None Pain Distress: Moderate Neck: Supple Respiratory: Airway patent, Breath sounds clear, Breath sounds equal, Respirations nonlabored Cardiovascular: RRR, Pulses normal, No rub, No murmur GI/: Soft, Nontender, No masses, Bowel sounds normal, No Organomegaly Musculoskeletal: Normal strength Skin: Warm, Dry, Normal color Neurological: Sensation intact, Motor intact, Cranial nerves intact, Alert, Oriented Psychiatric: Anxious Critical Care Note - Critical Care Note Total Time (mins): 0 Course - Course Vital Signs: Temp Pulse Resp BP Pulse Ox 08/12/18 05:25 98.5 F 88 18 127/84 99 Departure - Departure Time of Disposition: 05:43 Disposition: HOME SELF-CARE Discharge Problem: Toothache Instructions: Toothache (ED) Condition: Stable Pt referred to PMD for follow-up: Yes IPMP verified?: No (not prescribing narcotics today) Additional Instructions: Keep Apt with Your Dentist Take antibiotics and OTC Tylenol as needed for pain Prescriptions: Amoxicillin [Amoxil] 500 mg PO TID #30 capsule Allergies/Adverse Reactions: Allergies ketorolac [From Toradol] Adverse Reaction (Mild, Verified 07/25/18 22:00) Vomiting caused epigastric pain as stated by Patient codeine Adverse Reaction (Verified 08/12/18 05:33) HALLUCINATION caused epigastric pain and hallucinations as stated by Patient fluoxetine HCl [From Prozac] Adverse Reaction (Verified 08/12/18 05:33) PT UNSURE OF REACTION ibuprofen [From Motrin] Adverse Reaction (Verified 07/25/18 22:00) Nausea caused epigastric pain as stated by Patient prednisone Adverse Reaction (Verified 08/12/18 05:33) HALLUCINATING caused hallucinations as stated by Patient Home Medications: Ambulatory Orders Acetaminophen [Mapap] 500 mg PO Q6H PRN 05/24/18 Albuterol Sulfate [Ventolin Hfa] 2 puff IH Q4H PRN 05/24/18 Atorvastatin Calcium [Lipitor] 10 mg PO BEDTIME 05/24/18 Hydroxyzine HCl [Atarax] 25 mg PO Q4-6H PRN 05/24/18 Insulin Glargine,Hum.rec.anlog [Basaglar Kwikpen U-100] 32 units SUBCUT BEDTIME 05/24/18 Levothyroxine Sodium [Synthroid] 125 mcg PO DAILY 05/24/18 Sertraline HCl 100 mg PO DAILY 05/24/18 Quetiapine Fumarate [Seroquel] 100 mg PO BEDTIME 07/25/18 Amoxicillin [Amoxil] 500 mg PO TID #30 capsule 08/12/18 Metformin HCl 850 mg PO DAILY 08/12/18 Disposition Discussed With: Patient
== END 2018-08-12 06:03 | disposition home or self-care (01) ==
LOC: ED 05:25
DX: K08.89 Other specified disorders of teeth and supporting structures (principal); F17.210 Nicotine dependence, cigarettes, uncomplicated
CPT/HCPCS: 99282

== ENCOUNTER 2018-11-20 15:04 | Emergency (ER) ==
[2018-11-20 15:06] VITALS: BP 128/82; TEMP 98.2; BMI 28.5
--- NOTE | 2018-11-20 15:13 | ED.PDOC ---
General ED Provider: Dr. THONG LEE Chief Complaint: Headache Stated Complaint: headache Time Seen by Physician: 15:00 (seen with emerson has sinusitis on antibiotics) Mode of Arrival: Walk-In Information Source: Patient Exam Limitations: No limitations Primary Care Provider: MELI HAYWARD Nursing and Triage Documentation Reviewed and Agree: Yes Does patient meet sepsis criteria?: No If yes, has appropriate treatment been initiated?: No System Inflammatory Response Syndrome: Not Applicable Sepsis Protocol: For patient's 13 years and over: Temp is 96.8 and below OR 101 and greater Pulse >90 BPM Resp >20/minute Acutely Altered Mental Status Are patient's symptoms suggestive of a new infection, such as: -Pneumonia -Skin, Soft Tissue -Endocarditis -UTI -Bone, Joint Infection -Implantable Device -Acute Abdominal Infection -Wound Infection -Meningitis -Blood Stream Catheter Infection -Unknown Neurological Complaint Exam - Headache Complaint/Exam Onset: Gradual Duration: 1500 Symptoms Are: Still present Timing: Intermittent Episodes Lasting: Hours Worst Headache Ever: No Initial Severity: Mild Current Severity: Mild Location: Diffuse Character: Reports: Throbbing Aggravating: Reports: None Alleviating: Reports: None Associated Signs and Symptoms: Denies: Dizziness, Seizure, Nausea, Vomiting, Sinus pressure, Fever, Neck pain, Neck stiffness, Decreased LOC, Visual changes Related History: Reports: Similar episode Related Surgical History: Reports: None SAH Risk Factors: Reports: None Meningitis Risk Factors: Reports: None SDH Risk Factors: Reports: None Temporal Arteritis Risk Factors: Reports: None Normal Head CT Within Last 12 Months: Yes Fundoscopic Exam: Present: Normal Findings Papilledema Present: No Temporal Artery Tenderness: Present: None Sinus Tenderness: Present: None TMJ Tenderness: Present: None Glascow Coma Scale (see protocol): 15 Meningeal Signs Positive: No ROM Limited In: No Limitiations Focal Weakness: Present: None Focal Sensory Loss: Present: None Gait: Normal Nystagmus Present: No Gag Reflex Present: Yes [id number]: Normal Findings Differential Diagnoses: Migraine Review of Systems - Review Of Systems Constitutional: Reports: No symptoms Eyes: Reports: No symptoms Ears, Nose, Mouth, Throat: Reports: No symptoms Respiratory: Reports: No symptoms Cardiac: Reports: No symptoms GI: Reports: No symptoms : Reports: No symptoms Musculoskeletal: Reports: No symptoms Skin: Reports: No symptoms Neurological: Reports: Headache Endocrine: Reports: No symptoms Hematologic/Lymphatic: Reports: No symptoms All Other Systems: Reviewed and Negative Past Medical History - Past Medical History Previously Healthy: No Endocrine: Reports: DM 2 (insulin-requiring tpe DM), Hypothyroid Cardiovascular: Reports: None Respiratory: Reports: None Hematological: Reports: None Gastrointestinal: Reports: None Genitourinary: Reports: None Neuro/Psych: Reports: CVA (later in visit, patient stated via written note that she has had 3 CVAs), Migraine, Depression, Bipolar Disorder ((see meds)) Musculoskeletal: Reports: Back Pain Cancer: Reports: Unknown Last Menstrual Period: HYSTERECTOMY Other Pertinent Past Medical History: KNEE,GALLBLADDER,BACK,NECK,HANDS - Surgical History General Surgical History: Reports: Hysterectomy, Cholecystectomy, Orthopedic ( KNEE,BACK,NECK,HANDS) - Family History Family History: Reports: Unknown - Social History Smoking Status: Current every day smoker, Light tobacco smoker Hx Substance Use: No Alcohol Screening: None - Immunizations Tetanus Shot up to Date: No Physical Exam - Physical Exam Appearance: Well-appearing, No pain distress, Well-nourished Eyes: HU, EOMI, Conjunctiva clear ENT: Ears normal, Nose normal, Oropharynx normal Respiratory: Airway patent, Breath sounds clear, Breath sounds equal, Respirations nonlabored Cardiovascular: RRR, Pulses normal, No rub, No murmur GI/: Soft, Nontender, No masses, Bowel sounds normal, No Organomegaly Musculoskeletal: Normal strength, ROM intact, No edema, No calf tenderness Skin: Warm, Dry, Normal color Neurological: Sensation intact, Motor intact, Reflexes intact, Cranial nerves intact, Alert, Oriented Psychiatric: Affect appropriate, Mood appropriate - NIH Stroke Scale 1a. Level of Consciousness: 0=Alert and keenly responsive 1b. Level of Consciousness Questions: 0=Answers correctly to two questions 1c. Level of Consciousness Commands: 0=Performs two tasks correctly 2. Best Gaze: 0=Normal 3. Visual: 0=No visual loss 4. Facial Palsy: 0=Normal 5a. Motor Left Arm: 0=No drift,arm holds 90 degrees for 10 sec., leg 30 degrees for 5 sec. 5b. Motor Right Arm: 0=No drift,arm holds 90 degrees for 10 sec., leg 30 degrees for 5 sec. 6a. Motor Left Le=No drift,arm holds 90 degrees for 10 sec., leg 30 degrees for 5 sec. 6b. Motor Right Le=No drift,arm holds 90 degrees for 10 sec., leg 30 degrees for 5 sec. 7. Limb Ataxia: 0=Absent 8. Sensory: 0=Normal 9. Best Language: 0=No aphasia 10. Dysarthria: 0=Normal 11. Extincion and Inattention: 0=Normal Stroke Scale Total: 0 Critical Care Note - Critical Care Note Total Time (mins): 0 Course - Course Vital Signs: Temp Pulse Resp BP Pulse Ox 11/20/18 15:04 98.2 F 87 18 128/82 95 Departure - Departure Time of Disposition: 15:13 Disposition: HOME SELF-CARE Discharge Problem: Headache Instructions: Migraine Headache (ED) Condition: Good Pt referred to PMD for follow-up: Yes IPMP verified?: No Additional Instructions: Please call your Family Physician as soon as possible to schedule a follow-up appointment. Allergies/Adverse Reactions: Allergies ketorolac [From Toradol] Adverse Reaction (Mild, Verified 11/20/18 15:06) Vomiting caused epigastric pain as stated by Patient codeine Adverse Reaction (Verified 11/20/18 15:06) HALLUCINATION caused epigastric pain and hallucinations as stated by Patient fluoxetine HCl [From Prozac] Adverse Reaction (Verified 11/20/18 15:06) PT UNSURE OF REACTION ibuprofen [From Motrin] Adverse Reaction (Verified 11/20/18 15:06) Nausea caused epigastric pain as stated by Patient prednisone Adverse Reaction (Verified 11/20/18 15:06) HALLUCINATING caused hallucinations as stated by Patient Home Medications: Ambulatory Orders Albuterol Sulfate [Ventolin Hfa] 2 puff IH Q4H PRN 05/24/18 Atorvastatin Calcium [Lipitor] 10 mg PO BEDTIME 05/24/18 Insulin Glargine,Hum.rec.anlog [Basaglar Kwikpen U-100] 32 units SUBCUT BEDTIME 05/24/18 Levothyroxine Sodium [Synthroid] 125 mcg PO DAILY 05/24/18 Sertraline HCl 100 mg PO DAILY 05/24/18 Quetiapine Fumarate [Seroquel] 100 mg PO BEDTIME 07/25/18 Amoxicillin [Amoxil] 500 mg PO TID #30 capsule 08/12/18 Metformin HCl 850 mg PO DAILY 08/12/18
== END 2018-11-20 15:21 | disposition home or self-care (01) ==
LOC: ED 15:04
DX: R51 Headache (principal); Z86.73 Personal history of transient ischemic attack (TIA), and cerebral infarction without residual deficits; E11.9 Type 2 diabetes mellitus without complications; E03.9 Hypothyroidism, unspecified; Z79.4 Long term (current) use of insulin; F17.210 Nicotine dependence, cigarettes, uncomplicated; Z79.899 Other long term (current) drug therapy
CPT/HCPCS: 99282

== ENCOUNTER 2018-11-24 08:47 | Outpatient (CLI) ==
[2013-02-01 21:24] VITALS: TEMP 96.6
--- NOTE | 2018-11-24 09:49 | DI ---
EXAM: Three views of the right great toe. HISTORY: Puncture wound. FINDINGS: No fracture or dislocation is seen. Mild arthritis of the distal interphalangeal joint. No soft tissue gas collection or radiopaque foreign body. IMPRESSION: 1. No fracture or foreign body identified.
== END 2018-11-24 08:48 | disposition home or self-care (01) ==
LOC: WOUND 08:47
PROVIDERS: ATTEND Nurse Practitioner Family
DX: S91.211A Laceration without foreign body of right great toe with damage to nail, initial encounter (principal); E11.9 Type 2 diabetes mellitus without complications; I10 Essential (primary) hypertension
CPT/HCPCS: 36415; 80053; 80061; 82306; 83036; 84439; 84443; 85025; 99202; 99215

== ENCOUNTER 2018-12-02 18:50 | Outpatient (CLI) ==
[2013-02-01 21:24] VITALS: TEMP 96.6
[2018-12-02 19:10] VITALS: BMI 27.6
== END 2018-12-02 18:56 | disposition critical access hospital (66) ==
LOC: AMBL 18:50
PROVIDERS: ATTEND Emergency Medicine
DX: R11.2 Nausea with vomiting, unspecified (principal); Z86.73 Personal history of transient ischemic attack (TIA), and cerebral infarction without residual deficits; E11.65 Type 2 diabetes mellitus with hyperglycemia; R20.2 Paresthesia of skin

== ENCOUNTER 2018-12-02 19:00 | Emergency (ER) ==
[2018-12-02 19:10] VITALS: BP 145/92; TEMP 98.1; BMI 27.6
[2018-12-02] MEDS ORDERED: ZOFRAN 4 MG/2 ML IVP STA (19:22)
--- NOTE | 2018-12-02 19:23 | ED.PDOC ---
General ED Provider: Dr. ALPHONSO BENJAMIN Chief Complaint: Abdominal Pain Stated Complaint: 48 y old abdominasl discomfort,loose BM NV Time Seen by Physician: 19:20 Mode of Arrival: Ambulance Information Source: Patient, EMT Exam Limitations: No limitations Primary Care Provider: MARYA MARTINO Nursing and Triage Documentation Reviewed and Agree: Yes Does patient meet sepsis criteria?: No System Inflammatory Response Syndrome: Not Applicable Sepsis Protocol: For patient's 13 years and over: Temp is 96.8 and below OR 101 and greater Pulse >90 BPM Resp >20/minute Acutely Altered Mental Status Are patient's symptoms suggestive of a new infection, such as: -Pneumonia -Skin, Soft Tissue -Endocarditis -UTI -Bone, Joint Infection -Implantable Device -Acute Abdominal Infection -Wound Infection -Meningitis -Blood Stream Catheter Infection -Unknown GI Complaint Exam - Abdominal Pain Complaint/Exam Duration: 2 days Symptoms Are: Still present Timing: Intermittent Initial Severity: Moderate Current Severity: Moderate Location of Pain: Diffuse Radiates To: Reports: LLQ, RLQ Character: Reports: Dull, Aching Aggravating: Reports: None Alleviating: Reports: Rest Associated Signs and Symptoms: Reports: Nausea, Vomiting, Diarrhea AAA Risk Factors: Reports: Hypertension Cardiac Risk Factors: Reports: Hypertension, Smoking Ectopic Risk Factors: Reports: None Ovarian Torsion Risk Factors: Reports: None Surgical Obstruction Risk Factors: Reports: None, Prior abdominal surgery Related Surgical History: Reports: Cholecystectomy Abdominal Findings: Present: Abdominal distention, Other Differential Diagnoses: Diverticulitis, Gastroenteritis, Ureteral Stone Quality Indicator For Non-Traumatic Chest Pain/Syncope: EKG Performed Review of Systems - Review Of Systems Constitutional: Reports: No symptoms Eyes: Reports: No symptoms Ears, Nose, Mouth, Throat: Reports: No symptoms Respiratory: Reports: No symptoms Cardiac: Reports: No symptoms GI: Reports: Abdominal pain, Diarrhea, Nausea, Vomiting : Reports: No symptoms Musculoskeletal: Reports: No symptoms Neurological: Reports: No symptoms Endocrine: Reports: No symptoms Hematologic/Lymphatic: Reports: No symptoms All Other Systems: Reviewed and Negative Past Medical History - Past Medical History Previously Healthy: No Endocrine: Reports: DM 2 (insulin-requiring tpe DM), Hypothyroid Cardiovascular: Reports: None Respiratory: Reports: None Hematological: Reports: None Gastrointestinal: Reports: None Genitourinary: Reports: None Neuro/Psych: Reports: CVA (later in visit, patient stated via written note that she has had 3 CVAs), Migraine, Depression, Bipolar Disorder ((see meds)) Musculoskeletal: Reports: Back Pain Cancer: Reports: Unknown Last Menstrual Period: none Other Pertinent Past Medical History: KNEE,GALLBLADDER,BACK,NECK,HANDS - Surgical History General Surgical History: Reports: Hysterectomy, Cholecystectomy, Orthopedic ( KNEE,BACK,NECK,HANDS) - Family History Family History: Reports: Unknown - Social History Smoking Status: Current every day smoker, Light tobacco smoker Hx Substance Use: No Alcohol Screening: None - Immunizations Tetanus Shot up to Date: Yes Physical Exam - Physical Exam Appearance: Well-appearing Ill-appearing: Mild Pain Distress: Moderate Eyes: HU ENT: Ears normal, Nose normal, Oropharynx normal Neck: Supple Respiratory: Airway patent, Breath sounds clear, Breath sounds equal Cardiovascular: RRR, Pulses normal, No rub GI/: Bowel sounds hyperactive Musculoskeletal: Normal strength, ROM intact, No edema Skin: Warm, Dry Neurological: Sensation intact, Motor intact, Reflexes intact, Alert Psychiatric: Affect appropriate Critical Care Note - Critical Care Note Total Time (mins): 0 Course - Course Hematology/Chemistry: 12/02/18 20:01 12/02/18 20:01 Orders, Labs, Meds: Lab Review 12/02/18 12/02/18 12/02/18 19:55 20:01 20:01 WBC 12.51 H RBC 4.60 Hgb 12.8 Hct 36.8 L MCV 80.0 L MCH 27.8 MCHC 34.8 RDW Coeff of Luanne 13.6 Plt Count 277 Immature Gran % (Auto) 0.6 Neut % (Auto) 52.1 Lymph % (Auto) 39.4 [place] % (Auto) 4.3 Eos % (Auto) 3.0 Baso % (Auto) 0.6 Immature Gran # (Auto) 0.1 Neut # (Auto) 6.5 Lymph # (Auto) 4.9 H [place] # (Auto) 0.5 Eos # (Auto) 0.4 Baso # (Auto) 0.1 Sodium 135.6 Potassium 3.78 Chloride 100.9 Carbon Dioxide 24.1 Anion Gap 14.38 BUN 7.4 Creatinine 0.51 L Estimated GFR (MDRD) 128.00 BUN/Creatinine Ratio 14.50 Glucose 328.3 H Calcium 9.26 Total Bilirubin 0.46 AST 19.3 ALT 17.6 Alkaline Phosphatase 78.7 Total Protein 8.07 Albumin 4.61 Globulin 3.46 Albumin/Globulin Ratio 1.33 Amylase 58.1 Lipase 103.4 Urine Color Yellow Urine Clarity Clear Urine pH 6.5 Ur Specific [place] <=1.005 Urine Protein Negative Urine Glucose (UA) 2+ Urine Ketones Negative Urine Blood Negative Urine Nitrite Negative Urine Bilirubin Negative Urine Urobilinogen 0.2 Ur Leukocyte Esterase Negative Stl Occult Blood (IFOB) Stool Occult Blood #2 Stool Occult Blood #3 Acetone, Qual 12/02/18 12/02/18 20:01 21:15 WBC RBC Hgb Hct MCV MCH MCHC RDW Coeff of Luanne Plt Count Immature Gran % (Auto) Neut % (Auto) Lymph % (Auto) [place] % (Auto) Eos % (Auto) Baso % (Auto) Immature Gran # (Auto) Neut # (Auto) Lymph # (Auto) [place] # (Auto) Eos # (Auto) Baso # (Auto) Sodium Potassium Chloride Carbon Dioxide Anion Gap BUN Creatinine Estimated GFR (MDRD) BUN/Creatinine Ratio Glucose Calcium Total Bilirubin AST ALT Alkaline Phosphatase Total Protein Albumin Globulin Albumin/Globulin Ratio Amylase Lipase Urine Color Urine Clarity Urine pH Ur Specific [place] Urine Protein Urine Glucose (UA) Urine Ketones Urine Blood Urine Nitrite Urine Bilirubin Urine Urobilinogen Ur Leukocyte Esterase Stl Occult Blood (IFOB) Negative Stool Occult Blood #2 Pending Stool Occult Blood #3 Pending Acetone, Qual None Orders Category Date Time Status EKG-(ED ONLY) Stat CARDIO 12/02/18 19:22 Ordered BLOOD GLUCOSE MONITORING Q1HR CARE 12/02/18 20:51 Active NPO REMINDER: IMAGING ONCE CARE 12/02/18 20:05 Completed ED IV/MEDIPORT/POWERPORT .ONCE EMERGENCY 12/02/18 19:17 Active ACETONE, QUALITATIVE Stat LAB 12/02/18 20:01 Completed AMYLASE Stat LAB 12/02/18 20:01 Completed CBC W/ AUTO DIFF Stat LAB 12/02/18 20:01 Completed COMPREHENSIVE METABOLIC PANEL Stat LAB 12/02/18 20:01 Completed HEMOCCULT [OCCULT BLOOD, STOOL] Stat LAB 12/02/18 21:15 Results LIPASE Stat LAB 12/02/18 20:01 Completed URINALYSIS C & S IF INDICATED Stat LAB 12/02/18 19:55 Completed 0.9 % Sodium Chloride [Saline Flush] MEDS 12/02/18 19:17 Ordered 1 syr IVF PRN PRN Hydromorphone HCl [Dilaudid 1 mg/ml Syringe] MEDS 12/02/18 19:27 Discontinued 0.5 mg IVP ONCE STA Hydromorphone HCl [Dilaudid 1 mg/ml Syringe] MEDS 12/02/18 20:29 Discontinued 0.5 mg IVP ONCE STA Insulin Regular, Human [Humulin R] MEDS 12/02/18 20:44 Discontinued 5 unit SUBCUT ONCE STA Ondansetron HCl/Pf [Zofran 4 mg/2 ml] MEDS 12/02/18 19:22 Discontinued 4 mg IVP ONCE STA Potassium Chloride [K-Dur] MEDS 12/02/18 20:42 Discontinued 20 meq PO ONCE STA Sodium Chloride 0.9% [Sodium Chloride] 1,000 ml MEDS 12/02/18 20:[address] ABDOMEN/PELVIS WO CONTRAST Stat RADS 12/02/18 20:[address] HEAD W/O CONTRAST Stat RADS 12/02/18 19:43 Taken Medications Generic Name Dose Route Start Last Admin Trade Name Freq PRN Reason Stop Dose Admin Sodium Chloride 1 syr 12/02/18 19:17 Saline Flush IVF PRN PRN To flush IV Discontinued Medications Generic Name Dose Route Start Last Admin Trade Name Freq PRN Reason Stop Dose Admin Hydromorphone HCl 0.5 mg 12/02/18 19:27 12/02/18 19:58 Dilaudid 1 Mg/Ml Syringe IVP 12/02/18 19:28 0.5 mg ONCE STA Administration Hydromorphone HCl 0.5 mg 12/02/18 20:29 12/02/18 20:34 Dilaudid 1 Mg/Ml Syringe IVP 12/02/18 20:30 0.5 mg ONCE STA Administration Sodium Chloride 1,000 mls @ 1,000 mls/hr 12/02/18 20:10 12/02/18 20:19 Sodium Chloride IV 12/02/18 21:09 1,000 mls/hr BOLUS STA Administration Insulin Human Regular 5 unit 12/02/18 20:44 12/02/18 21:12 Humulin R SUBCUT 12/02/18 20:45 5 unit ONCE STA Administration Ondansetron HCl 4 mg 12/02/18 19:22 12/02/18 19:58 Zofran 4 Mg/2 Ml IVP 12/02/18 19:23 4 mg ONCE STA Administration Potassium Chloride 20 meq 12/02/18 20:42 12/02/18 21:11 K-Dur PO 12/02/18 20:43 20 meq ONCE STA Administration Vital Signs: Temp Pulse Resp BP Pulse Ox 12/02/18 19:06 98.1 F 99 H 18 145/92 H 96 Departure - Departure Time of Disposition: 21:47 Disposition: HOME SELF-CARE Discharge Problem: Diarrhea Instructions: Loperamide (By mouth) Condition: Good Pt referred to PMD for follow-up: Yes IPMP verified?: No Additional Instructions: Kefllex 500 mg tid x 7,Metronidazole 500 mg qid x 7 days LOPERAMISE 2 tab QID untill controlled Allergies/Adverse Reactions: Allergies ketorolac [From Toradol] Adverse Reaction (Mild, Verified 11/20/18 15:06) Vomiting caused epigastric pain as stated by Patient codeine Adverse Reaction (Verified 11/20/18 15:06) HALLUCINATION caused epigastric pain and hallucinations as stated by Patient fluoxetine HCl [From Prozac] Adverse Reaction (Verified 11/20/18 15:06) PT UNSURE OF REACTION ibuprofen [From Motrin] Adverse Reaction (Verified 11/20/18 15:06) Nausea caused epigastric pain as stated by Patient prednisone Adverse Reaction (Verified 11/20/18 15:06) HALLUCINATING caused hallucinations as stated by Patient Home Medications: Ambulatory Orders Albuterol Sulfate [Ventolin Hfa] 2 puff IH Q4H PRN 05/24/18 Atorvastatin Calcium [Lipitor] 10 mg PO BEDTIME 05/24/18 Insulin Glargine,Hum.rec.anlog [Basaglar Kwikpen U-100] 32 units SUBCUT BEDTIME 05/24/18 Levothyroxine Sodium [Synthroid] 125 mcg PO DAILY 05/24/18 Sertraline HCl 100 mg PO DAILY 05/24/18 Quetiapine Fumarate [Seroquel] 100 mg PO BEDTIME 07/25/18 Metformin HCl 850 mg PO DAILY 08/12/18 Disposition Discussed With: Patient, Family
[2018-12-02] MEDS ORDERED: DILAUDID 1 MG/ML SYRINGE IVP STA ×2 (19:27→20:29)
[2018-12-02] MEDS ORDERED: SODIUM CHLORIDE 1,000 ML IV STA (20:10)
[2018-12-02] MEDS ORDERED: K-DUR PO STA (20:42)
[2018-12-02] MEDS ORDERED: HUMULIN R SUBCUT STA (20:44)
[2018-12-02] MEDS ORDERED: ROCEPHIN 1 GM in SODIUM CHLORIDE 50 ML IV STA (21:53)
[2018-12-02] MEDS ORDERED: ROCEPHIN ONE (22:04)
--- NOTE | 2018-12-03 05:24 | CT ---
EXAM: CT scan of the head without contrast HISTORY: Cerebrovascular accident nausea TECHNIQUE: Helical imaging of the head was performed without contrast. 5 mm thin axial images and c oronal and sagittal images were provided for interpretation. Comparison 05/24/2018. FINDINGS: The bowie-white interface appears normal. The lateral ventricles and cortical sulci are no rmal. The basal cisterns are patent. No acute hemorrhages are seen. There is no mass effect. The paranasal sinuses and mastoid air cells are clear. The calvarium appears normal. IMPRESSION: No acute intracranial abnormalities are seen.
--- NOTE | 2018-12-03 05:24 | CT ---
EXAM: CT scan abdomen pelvis without contrast HISTORY: Nausea, vomiting diarrhea COMPARISON: CT scan abdomen pelvis 12/20/2013 FINDINGS: Contiguous axial images obtained through the abdomen pelvis without contrast utilizing 3-m m collimation. Sagittal and coronal reconstructions were imaged and reviewed.. The 5 mm pleural-bas ed nodule the left lung base. The been prior cholecystectomy. Fatty infiltration is of throughout t he liver. The pancreas spleen and adrenal glands have normal unenhanced CT appearance. Atherosclero tic changes are seen involving abdominal aorta without aneurysm formation. The kidneys are morpholog ically normal. Submucosal fat deposition is seen in the right colon suggesting chronic colitis. Ther e is no free fluid or inflammatory changes. There has been prior hysterectomy.. There is a left pso as lipoma which is stable IMPRESSION: No acute intra-abdominal findings. Fatty liver. Submucosal fat deposition right colon compatible with chronic colitis.
== END 2018-12-02 23:00 | disposition home or self-care (01) ==
LOC: ED 19:00
DX: R10.9 Unspecified abdominal pain (principal); R11.2 Nausea with vomiting, unspecified; R19.7 Diarrhea, unspecified; I10 Essential (primary) hypertension; E11.9 Type 2 diabetes mellitus without complications; E03.9 Hypothyroidism, unspecified; F17.210 Nicotine dependence, cigarettes, uncomplicated; Z79.899 Other long term (current) drug therapy; Z79.4 Long term (current) use of insulin; Z86.73 Personal history of transient ischemic attack (TIA), and cerebral infarction without residual deficits
CPT/HCPCS: 36415; 80053; 81001; 82009; 82150; 82272; 83690; 85025; 93005; 93010; 96361; 96365; 96366; 96372; 96375; 96376; 99283

== ENCOUNTER 2018-12-09 17:13 | Outpatient (CLI) ==
[2013-02-01 21:24] VITALS: TEMP 96.6
[2018-12-09 17:33] VITALS: BMI 29.7
== END 2018-12-09 17:19 | disposition critical access hospital (66) ==
LOC: AMBL 17:13
PROVIDERS: ATTEND Internal Medicine
DX: R10.9 Unspecified abdominal pain (principal); R11.2 Nausea with vomiting, unspecified; W19.XXXA Unspecified fall, initial encounter

== ENCOUNTER 2018-12-09 17:30 | Emergency (ER) ==
[2018-12-09 17:33] VITALS: BP 102/68; TEMP 97.6; BMI 29.7
--- NOTE | 2018-12-09 18:21 | ED.PDOC ---
General ED Provider: Dr. THONG LEE Chief Complaint: Nausea/Vomiting Stated Complaint: WAS SEEN IN THE [facility] EM[facility]GENCY DEPT A FEW DAYS AGO A DIAGNOSIS OF COLITIS WAS MADE. RETURNS FOR THE EVALUATION OF VOMITING/ CRAMPING ABDOMINAL PAIN, SOME LOOSE STOOLS WHICH HAVE BEEN FREE OF BLOOD . Time Seen by Physician: 17:30 (SEEN WITH GIUSEPPE FROM RESPIRATORY) Mode of Arrival: Ambulance Information Source: Patient, EMT Exam Limitations: No limitations Primary Care Provider: MARYA MARTINO Nursing and Triage Documentation Reviewed and Agree: Yes Does patient meet sepsis criteria?: No System Inflammatory Response Syndrome: Not Applicable Sepsis Protocol: For patient's 13 years and over: Temp is 96.8 and below OR 101 and greater Pulse >90 BPM Resp >20/minute Acutely Altered Mental Status Are patient's symptoms suggestive of a new infection, such as: -Pneumonia -Skin, Soft Tissue -Endocarditis -UTI -Bone, Joint Infection -Implantable Device -Acute Abdominal Infection -Wound Infection -Meningitis -Blood Stream Catheter Infection -Unknown GI Complaint Exam - Abdominal Pain Complaint/Exam Onset: Gradual Duration: CHRONIC ISSUE Timing: Intermittent Initial Severity: Moderate Current Severity: Mild Location of Pain: Diffuse Radiates To: Denies: Chest, Back, Flank, LLQ Character: Reports: Cramping Aggravating: Reports: None Alleviating: Reports: None Associated Signs and Symptoms: Reports: Nausea, Vomiting. Denies: Diaphoresis, Fever, Cough, Chest pain, Dizziness, Back pain, Constipation, Blood in stool, Dysuria, Urinary frequency, Decreased urine output, Decreased appetite, Vaginal bleeding, Vaginal discharge, Diarrhea, Sore throat, Decreased activity Related History: Reports: Similar episode Review of Systems - Review Of Systems Constitutional: Reports: No symptoms Eyes: Reports: No symptoms Ears, Nose, Mouth, Throat: Reports: No symptoms Respiratory: Reports: No symptoms Cardiac: Reports: No symptoms GI: Reports: Abdominal pain, Nausea, Poor appetite, Vomiting : Reports: No symptoms Musculoskeletal: Reports: No symptoms Skin: Reports: No symptoms Neurological: Reports: Headache Endocrine: Reports: No symptoms Hematologic/Lymphatic: Reports: No symptoms All Other Systems: Reviewed and Negative Past Medical History - Past Medical History Previously Healthy: No Endocrine: Reports: DM 2 (insulin-requiring tpe DM), Hypothyroid Cardiovascular: Reports: None Respiratory: Reports: None Hematological: Reports: None Gastrointestinal: Reports: None Genitourinary: Reports: None Neuro/Psych: Reports: CVA (later in visit, patient stated via written note that she has had 3 CVAs), Migraine, Depression, Bipolar Disorder ((see meds)) Musculoskeletal: Reports: Back Pain Cancer: Reports: Unknown Last Menstrual Period: n/a Other Pertinent Past Medical History: KNEE,GALLBLADDER,BACK,NECK,HANDS - Surgical History General Surgical History: Reports: Hysterectomy, Cholecystectomy, Orthopedic ( KNEE,BACK,NECK,HANDS) - Family History Family History: Reports: Unknown - Social History Smoking Status: Current every day smoker, Light tobacco smoker Hx Substance Use: No Alcohol Screening: None Physical Exam - Physical Exam Appearance: Well-appearing, No pain distress, Well-nourished Eyes: HU, EOMI, Conjunctiva clear ENT: Ears normal, Nose normal, Oropharynx normal Respiratory: Airway patent, Breath sounds clear, Breath sounds equal, Respirations nonlabored Cardiovascular: RRR, Pulses normal, No rub, No murmur GI/: Soft, Nontender, No masses, Bowel sounds normal, No Organomegaly Musculoskeletal: Normal strength, ROM intact, No edema, No calf tenderness Skin: Warm, Dry, Normal color Neurological: Sensation intact, Motor intact, Reflexes intact, Cranial nerves intact, Alert, Oriented Psychiatric: Affect appropriate, Mood appropriate Critical Care Note - Critical Care Note Total Time (mins): 0 Course - Course Orders, Labs, Meds: Orders Category Date Time Status UA [URINALYSIS C & S IF INDICATED] Stat LAB 12/09/18 18:37 Ordered Vital Signs: Temp Pulse Resp BP Pulse Ox 12/09/18 17:30 97.6 F 87 20 102/68 96 Departure - Departure Time of Disposition: 18:30 (pt left ama . pt requestd pain meds and and a antiemetic , i agreed with antiemetic declined pain meds till ct scan is done. giuseppe present at all times pt left ama) Disposition: AMA Discharge Problem: Abdominal pain Qualifiers: Abdominal location: generalized Qualified Code(s): R10.84 - Generalized abdominal pain Instructions: Abdominal Pain (ED) Condition: Good Pt referred to PMD for follow-up: Yes IPMP verified?: No Allergies/Adverse Reactions: Allergies ketorolac [From Toradol] Adverse Reaction (Mild, Verified 12/09/18 17:37) Vomiting caused epigastric pain as stated by Patient codeine Adverse Reaction (Verified 12/09/18 17:37) HALLUCINATION caused epigastric pain and hallucinations as stated by Patient fluoxetine HCl [From Prozac] Adverse Reaction (Verified 12/09/18 17:37) PT UNSURE OF REACTION ibuprofen [From Motrin] Adverse Reaction (Verified 12/09/18 17:37) Nausea caused epigastric pain as stated by Patient prednisone Adverse Reaction (Verified 12/09/18 17:37) HALLUCINATING caused hallucinations as stated by Patient Home Medications: Ambulatory Orders Albuterol Sulfate [Ventolin Hfa] 2 puff IH Q4H PRN 05/24/18 Atorvastatin Calcium [Lipitor] 10 mg PO BEDTIME 05/24/18 Insulin Glargine,Hum.rec.anlog [Ashly Moran U-100] 32 units SUBCUT BEDTIME 05/24/18 Levothyroxine Sodium [Synthroid] 125 mcg PO DAILY 05/24/18 Sertraline HCl 100 mg PO DAILY 05/24/18 Quetiapine Fumarate [Seroquel] 100 mg PO BEDTIME 07/25/18 Metformin HCl 850 mg PO DAILY 08/12/18
== END 2018-12-09 18:36 | disposition left against medical advice (07) ==
LOC: ED 17:30
DX: R10.84 Generalized abdominal pain (principal); R11.2 Nausea with vomiting, unspecified; R19.7 Diarrhea, unspecified; E11.9 Type 2 diabetes mellitus without complications; E03.9 Hypothyroidism, unspecified; Z86.73 Personal history of transient ischemic attack (TIA), and cerebral infarction without residual deficits; F17.210 Nicotine dependence, cigarettes, uncomplicated; Z79.899 Other long term (current) drug therapy
CPT/HCPCS: 81001; 99284

== ENCOUNTER 2019-01-18 09:13 | Emergency (ER) ==
[2019-01-18 09:22] VITALS: BP 119/71; TEMP 97.7; BMI 30.2
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
[2019-01-18] MEDS: TYLENOL PO STA ×2 (10:17→10:56)
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
== END 2019-01-18 11:30 | disposition home or self-care (01) ==
LOC: ED 09:13
DX: S86.912A Strain of unspecified muscle(s) and tendon(s) at lower leg level, left leg, initial encounter (principal); W10.9XXA Fall (on) (from) unspecified stairs and steps, initial encounter; F17.210 Nicotine dependence, cigarettes, uncomplicated
CPT/HCPCS: 99283

== ENCOUNTER 2019-03-19 20:43 | Emergency (ER) ==
[2019-03-19 20:51] VITALS: BP 130/80; TEMP 98.2; BMI 26.7
[2019-03-19] MEDS ORDERED: MORPHINE 2 MG/ML SYRINGE IVP STA (21:01)
--- NOTE | 2019-03-19 21:04 | ED.PDOC ---
General ED Provider: Dr. RASHID KINNEY-ER Chief Complaint: Back Pain Stated Complaint: i moved some furniture around and my lower back hurts-0-i didnt fall Time Seen by Physician: 20:50 Mode of Arrival: Walk-In Information Source: Patient Exam Limitations: No limitations Primary Care Provider: MARYA MARTINO Nursing and Triage Documentation Reviewed and Agree: Yes Does patient meet sepsis criteria?: No System Inflammatory Response Syndrome: Not Applicable Sepsis Protocol: For patient's 13 years and over: Temp is 96.8 and below OR 101 and greater Pulse >90 BPM Resp >20/minute Acutely Altered Mental Status Are patient's symptoms suggestive of a new infection, such as: -Pneumonia -Skin, Soft Tissue -Endocarditis -UTI -Bone, Joint Infection -Implantable Device -Acute Abdominal Infection -Wound Infection -Meningitis -Blood Stream Catheter Infection -Unknown Musculoskeletal Complaint Exam - Back Pain Complaint/Exam Mechanism of Injury: Reports: No known trauma Onset/Duration: 24 hrs Symptoms Are: Still present Timing: Constant Initial Severity: Mild Current Severity: Mild Location: Reports: Discrete Character: Reports: Dull, Aching Aggravating: Reports: Movements, Lifting, Bending, Walking Associated Signs and Symptoms: Denies: Swelling, Redness, Bruising, Fever, Weakness, Numbness, Tingling, Abdominal pain, Flank pain, Bladder incontinence, Bowel incontinence, Weight loss, Pain with weight bearing Related Surgical History: Reports: None Focal Tenderness: Yes Paraspinal Muscle Tenderness: Yes Paraspinal Muscle Spasm: Yes Scoliosis: No Lordosis: No Kyphosis: No SLR Test: Right Negative, Left Negative Hip Motion Testing Pain: Right Negative, Left Negative Focal Weakness: Present: None Focal Sensory Loss: Present: None Gait: Present: Normal Differential Diagnoses: Strain, Sprain Review of Systems - Review Of Systems Constitutional: Reports: No symptoms Eyes: Reports: No symptoms Ears, Nose, Mouth, Throat: Reports: No symptoms Respiratory: Reports: No symptoms Cardiac: Reports: No symptoms GI: Reports: No symptoms : Reports: No symptoms Musculoskeletal: Reports: Back pain, Muscle pain, Muscle stiffness Skin: Reports: No symptoms Neurological: Reports: No symptoms Endocrine: Reports: No symptoms Hematologic/Lymphatic: Reports: No symptoms All Other Systems: Reviewed and Negative Past Medical History - Past Medical History Previously Healthy: No Endocrine: Reports: DM 2 (insulin-requiring tpe DM), Hypothyroid Cardiovascular: Reports: None Respiratory: Reports: None Hematological: Reports: None Gastrointestinal: Reports: None Genitourinary: Reports: None Neuro/Psych: Reports: CVA (later in visit, patient stated via written note that she has had 3 CVAs), Migraine, Depression, Bipolar Disorder ((see meds)) Musculoskeletal: Reports: Back Pain Cancer: Reports: Unknown Last Menstrual Period: hyst 1999 Other Pertinent Past Medical History: KNEE,GALLBLADDER,BACK,NECK,HANDS - Surgical History General Surgical History: Reports: Hysterectomy, Cholecystectomy, Orthopedic ( KNEE,BACK,NECK,HANDS) - Family History Family History: Reports: Unknown - Social History Smoking Status: Current every day smoker, Light tobacco smoker Hx Substance Use: No Alcohol Screening: None - Immunizations Tetanus Shot up to Date: Yes Physical Exam - Physical Exam Appearance: Well-appearing, No pain distress, Well-nourished Pain Distress: Mild Eyes: HU, EOMI, Conjunctiva clear ENT: Ears normal, Nose normal, Oropharynx normal Neck: Supple Respiratory: Airway patent, Breath sounds clear, Breath sounds equal, Respirations nonlabored Cardiovascular: RRR, Pulses normal, No rub, No murmur GI/: Soft, Nontender, No masses, Bowel sounds normal, No Organomegaly Musculoskeletal: Limited ROM Skin: Warm, Dry, Normal color Neurological: Sensation intact, Motor intact, Reflexes intact, Cranial nerves intact, Alert, Oriented Psychiatric: Affect appropriate, Mood appropriate Critical Care Note - Critical Care Note Total Time (mins): 0 Course - Course Orders, Labs, Meds: Orders Category Date Time Status Morphine Sulfate [Morphine 2 mg/ml Syringe] MEDS 03/19/19 21:01 Stat 2 mg IVP ONCE STA the patient declines xrays today Vital Signs: Temp Pulse Resp BP Pulse Ox 03/19/19 20:45 98.2 F 101 H 24 130/80 98 Departure - Departure Time of Disposition: 21:03 Disposition: HOME SELF-CARE Discharge Problem: Lumbar strain Qualifiers: Encounter type: initial encounter Qualified Code(s): S39.012A - Strain of muscle, fascia and tendon of lower back, initial encounter Instructions: Low Back Strain (ED) Condition: Good Pt referred to PMD for follow-up: Yes IPMP verified?: No Additional Instructions: f/u with pcp Allergies/Adverse Reactions: Allergies ketorolac [From Toradol] Adverse Reaction (Mild, Verified 03/10/19 01:46) Vomiting NOT AN ALLERGY, caused epigastric pain as stated by Patient codeine Adverse Reaction (Verified 03/10/19 01:46) HALLUCINATION fluoxetine HCl [From Prozac] Adverse Reaction (Verified 03/10/19 01:46) NOSEBLEED ibuprofen [From Motrin] Adverse Reaction (Verified 03/10/19 01:46) Nausea caused epigastric pain as stated by Patient prednisone Adverse Reaction (Verified 03/10/19 01:46) HALLUCINATING caused hallucinations as stated by Patient Home Medications: Ambulatory Orders Albuterol Sulfate [Ventolin Hfa] 2 puff IH Q4H PRN 05/24/18 Insulin Glargine,Hum.rec.anlog [Ashly Moran U-100] 36 units SUBCUT BEDTIME 05/24/18 Levothyroxine Sodium [Synthroid] 125 mcg PO DAILY 05/24/18 Sertraline HCl 100 mg PO DAILY 05/24/18 Quetiapine Fumarate [Seroquel] 100 mg PO BEDTIME 07/25/18 Cimetidine [Tagamet] 300 mg PO BIDAC 02/25/19 Metformin HCl [Metformin HCl ER] 500 mg PO BID 03/10/19 Nystatin [Nystatin Cream] 1 applic TP TID #1 applic 03/10/19 Disposition Discussed With: Patient
== END 2019-03-19 21:15 | disposition home or self-care (01) ==
LOC: ED 20:43
DX: S39.012A Strain of muscle, fascia and tendon of lower back, initial encounter (principal); X50.0XXA Overexertion from strenuous movement or load, initial encounter; F17.210 Nicotine dependence, cigarettes, uncomplicated
CPT/HCPCS: 96372; 99282

== ENCOUNTER 2019-03-25 15:47 | Emergency (ER) ==
[2019-03-25 16:05] VITALS: BP 151/100; TEMP 97.1; BMI 26.3
--- NOTE | 2019-03-25 16:35 | ED.PDOC ---
General ED Provider: Dr. DANTE HICKS Chief Complaint: Headache Stated Complaint: Headache; 3 days. Got Imitrex (shows her Sumatriptin container); says has taken two per instruction - "didn't do nothing"; nauseated - has Zofran at home. Says has had back pain, bad teeth - several reasons for numerous refils of [employer] [place] when discussing her prescribing habits. Time Seen by Physician: 16:29 Information Source: Patient Primary Care Provider: MARYA MARTINO Nursing and Triage Documentation Reviewed and Agree: Yes Does patient meet sepsis criteria?: No System Inflammatory Response Syndrome: Not Applicable Sepsis Protocol: For patient's 13 years and over: Temp is 96.8 and below OR 101 and greater Pulse >90 BPM Resp >20/minute Acutely Altered Mental Status Are patient's symptoms suggestive of a new infection, such as: -Pneumonia -Skin, Soft Tissue -Endocarditis -UTI -Bone, Joint Infection -Implantable Device -Acute Abdominal Infection -Wound Infection -Meningitis -Blood Stream Catheter Infection -Unknown Review of Systems - Review Of Systems Constitutional: Reports: Malaise (with BELTRAN) Eyes: Reports: Photophobia (similar to prior Migraine HAs) GI: Reports: Nausea. Denies: Diarrhea, Vomiting All Other Systems: Reviewed and Negative Past Medical History - Past Medical History Previously Healthy: No Endocrine: Reports: DM 2 (insulin-requiring tpe DM), Hypothyroid Cardiovascular: Reports: None Respiratory: Reports: None Hematological: Reports: None Gastrointestinal: Reports: None Genitourinary: Reports: None Neuro/Psych: Reports: CVA (later in visit, patient stated via written note that she has had 3 CVAs), Migraine, Depression, Bipolar Disorder ((see meds)) Musculoskeletal: Reports: Back Pain Cancer: Reports: Unknown Last Menstrual Period: Hysterectomy Other Pertinent Past Medical History: KNEE,GALLBLADDER,BACK,NECK,HANDS - Surgical History General Surgical History: Reports: Hysterectomy, Cholecystectomy, Orthopedic ( KNEE,BACK,NECK,HANDS) - Family History Family History: Reports: Unknown - Social History Smoking Status: Current every day smoker, Light tobacco smoker Hx Substance Use: No Alcohol Screening: None Physical Exam - Physical Exam Appearance: Well-appearing Pain Distress: Mild (Appears to be in no distress seated in chair; gets up to move closer to ophthalmoscope NAD) Eyes: HU, EOMI, Conjunctiva clear, Right pupil size (5 mm), Left pupil size ( 6 mm) Neck: Supple (Chin to chest intact) Respiratory: Airway patent, Breath sounds clear, Respirations nonlabored Cardiovascular: RRR Skin: Warm, Dry, Normal color Neurological: Sensation intact, Motor intact, Alert, Oriented Psychiatric: Affect appropriate, Mood appropriate Critical Care Note - Critical Care Note Total Time (mins): 8 Course - Course Vital Signs: Temp Pulse Resp BP Pulse Ox 03/25/19 15:57 97.1 F L 96 H 20 151/100 H 97 Departure - Departure Time of Disposition: 16:36 Disposition: HOME SELF-CARE Discharge Problem: Headache Qualifiers: Headache chronicity pattern: acute headache Instructions: Migraine Headache (ED) Condition: Good Pt referred to PMD for follow-up: Yes (Call for appointment) IPMP verified?: Yes (Discussed numerous recent CS prescriptions with patient) Additional Instructions: Take pain medicaiton as prescribed; must see primary care for any further chronic pain medication needs. Prescriptions: Hydrocodone Bit/Acetaminophen [[place] 7.5-325] 1 tab PO Q6HR PRN #12 tablet PRN Reason: pain Allergies/Adverse Reactions: Allergies ketorolac [From Toradol] Adverse Reaction (Mild, Verified 03/25/19 16:05) Vomiting NOT AN ALLERGY, caused epigastric pain as stated by Patient codeine Adverse Reaction (Verified 03/25/19 16:05) HALLUCINATION fluoxetine HCl [From Prozac] Adverse Reaction (Verified 03/25/19 16:05) NOSEBLEED ibuprofen [From Motrin] Adverse Reaction (Verified 03/25/19 16:05) Nausea caused epigastric pain as stated by Patient prednisone Adverse Reaction (Verified 03/25/19 16:05) HALLUCINATING caused hallucinations as stated by Patient Home Medications: Ambulatory Orders Albuterol Sulfate [Ventolin Hfa] 2 puff IH Q4H PRN 05/24/18 Insulin Glargine,Hum.rec.anlog [Basaglar Kwikpen U-100] 36 units SUBCUT BEDTIME 05/24/18 Levothyroxine Sodium [Synthroid] 125 mcg PO DAILY 05/24/18 Sertraline HCl 100 mg PO DAILY 05/24/18 Quetiapine Fumarate [Seroquel] 100 mg PO BEDTIME 07/25/18 Cimetidine [Tagamet] 300 mg PO BIDAC 02/25/19 Metformin HCl [Metformin HCl ER] 500 mg PO BID 03/10/19 Nystatin [Nystatin Cream] 1 applic TP TID #1 applic 03/10/19 Tizanidine HCl [Zanaflex] 2 mg PO 1-3XD PRN #20 capsule 03/19/19 Hydrocodone Bit/Acetaminophen [[place] 7.5-325] 1 tab PO Q6HR PRN #12 tablet 03/25
== END 2019-03-25 16:48 | disposition home or self-care (01) ==
LOC: ED 15:47
DX: R51 Headache (principal); Z86.73 Personal history of transient ischemic attack (TIA), and cerebral infarction without residual deficits; E11.9 Type 2 diabetes mellitus without complications; E03.9 Hypothyroidism, unspecified; F17.210 Nicotine dependence, cigarettes, uncomplicated; Z79.4 Long term (current) use of insulin; Z79.899 Other long term (current) drug therapy
CPT/HCPCS: 99283